=== PATIENT | male | born 1940 | race Caucasian/White ===

== ENCOUNTER 2018-02-02 05:55 | Outpatient (CLI) | payer MEDICARE ==
[~2018-02-02] VITALS: Ht 182.9 cm; Wt 122.5 kg
[~2018-02-02 05:55] MED LIST: ACHD5005 PO; AMLO10TA82 PO; AMOX500C2 PO; ANTIBIOTIC; ASP81CT; ASP81TEC PO; BENA20TA7 PO; BNZ10T; BNZ20T PO; CARB200T5 PO; CIPR-225 PO; CRB200T; CRB200T PO; CRESTOR; CYCL10TA45 PO; CYCL10TA9 PO; FELDENE; HYDR-1231 PO; HYDR1TAB8 PO; LEVO750T6 PO; MELO-195 PO; MELO15TA39 PO; MELO7.5T; METO100T12 PO; METO100T2 PO; MTP50T PO; MULT-608; MULT1TAB63; OMG1KC; OMG1KC PO; OXYC-12 PO; ROSU20TA PO; ROSU20TA14; ROSU20TA14 PO; SULF1TAB38; TADA2.5T PO; TAMS0.4C2 PO; TAMS0.4C98 PO; TEGRETOL; VITA1CAP59 PO; VITA400T7 PO
[2018-02-02] MEDS ORDERED: VITA1CAP PO (13:58)
[2018-02-02] MEDS ORDERED: OMEG1CAP58 PO (13:58)
[2018-02-02] MEDS ORDERED: VITA400C60 PO (13:58)
== END 2018-02-02 14:04 ==
LOC: PREOP 05:55
PROVIDERS: ATTEND Surgery
DX: Z01.818 Encounter for other preprocedural examination (principal); Z12.11 Encounter for screening for malignant neoplasm of colon; Z86.010 Personal history of colon polyps

== ENCOUNTER 2018-02-07 08:52 | Day surgery (SDC) | payer MEDICARE, OTHER ==
[~2018-02-07] VITALS: Ht 182.9 cm; Wt 122.5 kg
[~2018-02-07 08:52] MED LIST changes: +OMEG1CAP58 PO; +VITA1CAP PO; +VITA400C60 PO
[2018-02-07] MEDS ORDERED: LACTATED RINGERS 1,000 ML IV STA (09:30)
[2018-02-07] MEDS ORDERED: LACTATED RINGERS 1,000 ML IV ONE (09:39)
--- NOTE | 2018-02-07 09:43 | Progress Note-Pre Operative ---
Pre-Operative Progress Note H&P Reviewed The H&P was reviewed, patient examined and no changes noted. Date Seen by Provider: Feb 07, 2018 Time Seen by Provider: 09:42 Date H&P Reviewed: Feb 07, 2018 Time H&P Reviewed: 09:43 Pre-Operative Diagnosis: history polyps MORENITA PERALES DO Feb 07, 2018 09:43
[2018-02-07] MEDS ORDERED: ASPI-479 PO (10:23)
[2018-02-07 10:29] VITALS: BP 173/89
[2018-02-07] MEDS ORDERED: PROPOFOL INJECTION 50 ML IV ONE (11:12)
[2018-02-07] MEDS ORDERED: MIDAZOLAM 2 MG/2 ML (VERSED) VIAL ONE (11:12)
--- NOTE | 2018-02-07 11:38 | Progress Note-Post Operative ---
Post-Operative Progess Note Surgeon (s)/Document Control Clerk (s) Surgeon MORENITA PERALES DO Document Control Clerk: na Pre-Operative Diagnosis history polyps Post-Operative Diagnosis diverticulosis Procedure & Operative Findings Date of Procedure 02/07/18 Procedure Performed/Findings colonoscopy Anesthesia Type per rod greaser Estimated Blood Loss Estimated blood loss (mL): none Specimens/Packing Specimens Removed na MORENITA PERALES DO Feb 07, 2018 11:38
--- NOTE | 2018-02-07 11:39 | Discharge Inst-Simple/Standard ---
Discharge Inst-Standard Patient Instructions/Follow Up Plan of Care/Instructions/FU: Follow up on as needed basis. High fiber diet. Repeat colonoscopy 5 years or if issues before that be seen at that time. Activity as Tolerated: Yes Discharge Diet: Regular Diet (high fiber) MORENITA PERALES DO Feb 07, 2018 11:39
[2018-02-07 11:50] VITALS: BP 186/88
[2018-02-07 12:15] VITALS: BP 180/80
[2018-02-07 12:26] VITALS: BP 180/80
--- NOTE | 2018-02-07 13:17 | Anesthesia-General Post-Op ---
MAC Patient Condition Mental Status/LOC: Same as Preop Cardiovascular: Satisfactory Nausea/Vomiting: Absent Respiratory: Satisfactory Pain: Controlled Complications: Absent Post Op Complications Complications None Follow Up Care/Instructions Patient Instructions None needed. Anesthesiology Discharge Order Discharge Order Patient is doing well, no complaints, stable vital signs, no apparent adverse anesthesia problems. No complications reported per nursing. BERTRAM AGUILAR CRNA Feb 07, 2018 13:17
--- NOTE | 2018-02-07 16:56 | OPERATIVE REPORT ---
DATE OF SERVICE: 02/07/2018 PREOPERATIVE DIAGNOSIS: History of polyps. POSTOPERATIVE DIAGNOSIS: Diverticulosis. PROCEDURE: Colonoscopy. SURGEON: Morenita Hurd DO ANESTHESIA: Per PERMACULTURE DESIGNER. ESTIMATED BLOOD LOSS: None. COMPLICATIONS: None. INDICATIONS: The patient is a 77-year-old male with history of colon polyps. He understands risks and benefits of procedure and wished to proceed with procedure. Consent was signed on the chart. DESCRIPTION OF PROCEDURE: The patient was taken to the endoscopy suite, placed in left lateral recumbent position. Timeout was performed. Digital rectal exam was performed. There were no palpable polyps, masses or ulcerations. Scope was inserted in the rectum and advanced all the way to the cecum with minimal difficulty. Prep was adequate. Scope was then slowly retracted back. There were no polyps, mass or ulceration within the cecum, ascending, transverse, descending and sigmoid colon. There was a moderate amount of diverticulosis throughout the sigmoid colon. Scope was continued to be retracted back into the rectum where it was also retroflexed noting no other pathology. Scope was returned to its normal position, slowly withdrawn until completely removed. The patient tolerated procedure well without any complications, taken to recovery room in stable condition. RECOMMENDATIONS: The patient recommended repeat colonoscopy in 5 years. If the patient has any problems prior to that, he should be reevaluated at that time. Job ID: [id number] DocumentID: [id number] Dictated Date: 02/07/2018 11:36:49 Product Management Manager Date: 02/07/2018 16:55:13 Dictated By: MORENITA HURD DO
== END 2018-02-07 12:20 | disposition home or self-care (01) ==
LOC: ENDO 08:52
PROVIDERS: ATTEND Surgery
DX: Z12.11 Encounter for screening for malignant neoplasm of colon (principal); K57.30 Diverticulosis of large intestine without perforation or abscess without bleeding; Z86.010 Personal history of colon polyps; I25.10 Atherosclerotic heart disease of native coronary artery without angina pectoris; I10 Essential (primary) hypertension; G47.33 Obstructive sleep apnea (adult) (pediatric); Z79.82 Long term (current) use of aspirin; Z87.891 Personal history of nicotine dependence
CPT/HCPCS: G0105

== ENCOUNTER → 2018-05-03 | Outpatient (CLI) | payer MEDICARE, OTHER ==
[~2018-05-03] MED LIST changes: +ASPI-479 PO
--- NOTE | 2018-05-03 11:54 | Diagnostic Imaging Report ---
INDICATION: Injury with back pain. Exam is correlated with CT abdomen and pelvis April 2016 A stent graft device appeared unchanged. There is thoracolumbar spondylosis stable. The vertebral statures are unremarkable. There is slight rightward convexity scoliotic curvature stable. No acute appearing abnormality. IMPRESSION: Unchanged from previous CT. Dictated by: Dictated on workstation # [id number]
--- NOTE | 2018-05-03 13:16 | Diagnostic Imaging Report ---
INDICATION: Low and midback pain. Cleaned leaves out of a guttering two to three months ago with twisting injury. TECHNIQUE: AP, Lateral and Swimmers imaging of the thoracic spine CORRELATION STUDY: None. FINDINGS: Some straightening of the normal thoracic kyphosis. Alignment is otherwise anatomic. Thoracic vertebral body heights are well maintained. Mild diffuse disc space narrowing is noted. Mild endplate areas of lipping are present. There do appear to be degenerative changes about the visualized portions of the lower cervical spine. Coronary artery stents are superimposed over the left heart. Rhodes screw is however projecting over humeral head, likely owing to prior rotator cuff surgery. Partial visualization of proximal abdominal aortic stent graft. IMPRESSION: Mild generalized thoracic spondylosis is suggested. No suggestion for acute bony abnormality. Dictated by: Dictated on workstation # [id number]
== END ==
LOC: RAD 10:19
PROVIDERS: ATTEND Family Medicine
DX: S39.92XA Unspecified injury of lower back, initial encounter (principal); S29.9XXA Unspecified injury of thorax, initial encounter; X50.1XXA Overexertion from prolonged static or awkward postures, initial encounter; Z95.5 Presence of coronary angioplasty implant and graft
CPT/HCPCS: 72072; 72100

== ENCOUNTER 2018-10-17 06:21 | Outpatient (CLI) | payer MEDICARE, OTHER ==
[~2018-10-17] VITALS: Ht 182.9 cm; Wt 122.5 kg
[~2018-10-17 06:21] MED LIST changes: -ROSU20TA PO; +ROSU20TA2 PO
[2018-10-17] MEDS ORDERED: CYAN250010 PO (10:28)
[2018-10-17] MEDS ORDERED: CHOL500044 PO (10:28)
[2018-10-17] MEDS ORDERED: VITA200C5 PO (10:28)
== END 2018-10-17 10:37 | disposition home or self-care (01) ==
LOC: PREOP 06:21
PROVIDERS: ATTEND Specialist
DX: Z01.818 Encounter for other preprocedural examination (principal)

== ENCOUNTER 2018-10-18 08:03 | Day surgery (SDC) | payer MEDICARE, OTHER ==
[~2018-10-18] VITALS: Ht 182.9 cm; Wt 122.5 kg
[~2018-10-18 08:03] MED LIST changes: +CHOL500044 PO; +CYAN250010 PO; +VITA200C5 PO
[2018-10-18 08:38] VITALS: BP 169/90
[2018-10-18] MEDS: TETRACAINE 0.5% OPHTH SOLN 4 ML BTL (SINGLE DOSE ONLY) OU PRN ×3 (08:44→09:01)
[2018-10-18] MEDS: TROPICAMIDE 1% OPH SOLN (MYDRIACYL) 15 ML BTL OU PRN ×3 (08:47→09:02)
[2018-10-18] MEDS: PHENYLEPHRINE 10% OPHTH (NEO-SYN) 5 ML BTL OU PRN ×3 (08:48→09:02)
[2018-10-18 09:12] VITALS: BP 169/90
--- NOTE | 2018-10-18 09:19 | Ophthalmologist Pre-Op Note ---
Pre-Operative Progress Note H&P Reviewed The H&P was reviewed, patient examined and no changes noted. Date H&P Reviewed: Oct 18, 2018 Time H&P Reviewed: 09:00 Pre-Op Dx Secondary Cataract, Right Eye ERNESTINE ZARAGOZA MD Oct 18, 2018 09:19
--- NOTE | 2018-10-18 09:20 | Ophthalmology Operative Report ---
YAG Capsulotomy PREOPERATIVE DIAGNOSIS: Secondary Cataract Right Eye POSTOPERATIVE DIAGNOSIS: Secondary Cataract Right Eye PROCEDURE: YAG Capsulotomy, right eye SURGEON: Leif Zaragoza ANESTHESIA: Topical anesthesia COMPLICATIONS: None ESTIMATED BLOOD LOSS: Minimal DESCRIPTION OF PROCEDURE: After proper informed consent was obtained, the patient's, a 77 male, right eye received one drop of Tropicamide and one drop of Tetracaine. The patient was then placed at the YAG laser and using a power of [5.7 ] millijoules and [ 29] bursts were used to fashion a central capsulotomy. The patient tolerated the procedure well without complications and the patient's pressure was [18 ] shortly after the laser. LEIF ZARAGOZA MD Oct 18, 2018 09:20
--- OUTSIDE RECORDS SUMMARY | 2018-10-18 09:41 | XMS REPORT | CCD ---
Author Author Abril Barrett Organization Beatriz Pack MD, [facility] Address [address] [place] [address] Phone Care Team Providers [employer] Director Name Role Phone PP Unavailable CCM Unavailable Summary Purpose Interface Exchange Insurance Providers Payer name Policy type / Coverage type Covered alliance party ID Effective Begin Date Effective End Date WPS Medicare Part B Medicare Part B [id number] Unknown Unknown [facility] Medicare Part B [id number] Unknown Unknown Family history Father Diagnosis Age At Onset Stroke Unknown Mother Diagnosis Age At Onset Stroke Unknown Grandfather Diagnosis Age At Onset Diabetes mellitus Type 2 Unknown Social History Social History Element Codes Description Effective Dates Marital status Unknown Billie 11/04/2016 Number of children Unknown 2 Armand Abbott and Waleska Toney 11/04/[address]: [id number] Never smoker 11/04/2016 Alcohol history Unknown occasionally drinks alcohol 11/04/2016 Frequency of drinks SNOMED CT: 331917309 7 drinks per week 11/04/2016 Has the patient ever used illegal drugs? Unknown Has never used illegal drugs 11/04/2016 Allergies, Adverse Reactions, Alerts Substance Reaction Codes Entered Date Inactivated Date Status NO KNOWN DRUG ALLERGIES Unknown 11/04/2016 No Inactive Date Active Past Medical History Illness Codes Condition Status Onset Date Resolved Date Encounter for general adult medical examination with abnormal findings ICD-9: V70.0 ICD-10: Z00.01 Active 12/15/2016 Unknown Cough ICD-9: 786.2 ICD-10: R05 Active 11/22/2016 Unknown Gastro-esophageal reflux disease without esophagitis ICD-9: 530.81 ICD-10: K21.9 Active 11/22/2016 Unknown Other allergic rhinitis ICD-9: 477.8 ICD-10: J30.89 Active 11/04/2016 Unknown Acute laryngopharyngitis ICD-9: 465.0 ICD-10: J06.0 Active 11/04/2016 Unknown Problems Condition Codes Effective Dates Condition Status Encounter for general adult medical examination with abnormal findings ICD-9: V70.0 ICD-10: Z00.01 12/15/2016 Active Cough ICD-9: 786.2 ICD-10: R05 11/22/2016 Active Gastro-esophageal reflux disease without esophagitis ICD-9: 530.81 ICD-10: K21.9 11/22/2016 Active Other allergic rhinitis ICD-9: 477.8 ICD-10: J30.89 11/04/2016 Active Acute laryngopharyngitis ICD-9: 465.0 ICD-10: J06.0 11/04/2016 Active Medications Medication Codes Instructions Start Date Stop Date Status Fill Instructions pravastatin 80 mg tablet RxNorm: 316587 1 Tablet(s) PO daily 12/12/2018 Active pravastatin 80 mg tablet RxNorm: 674220 1 Tablet(s) PO daily 08/14/2018 Inactive Zyrtec 10 mg tablet RxNorm: 0219078 1 Tablet(s) PO daily 11/2212/21/2016 Inactive omeprazole 40 mg capsule,delayed release RxNorm: 063360 1 Capsule(s) PO daily 11/22/2016 12/21/2016 Inactive Keflex 500 mg capsule RxNorm: 768428 1 Capsule(s) PO TID 201611/22/2016 Inactive Keflex 500 mg capsule RxNorm: 373531 1 Capsule(s) PO TID 201611/13/2016 Inactive Fish Oil capsule RxNorm: 1 Capsule(s) PO daily No Start Date Active benazepril 20 mg tablet RxNorm: 150854 1 Tablet(s) PO daily No Start Date Active B Complex 1 oral RxNorm: 63121 oral No Start Date Active Crestor 20 mg tablet RxNorm: 447779 1 Tablet(s) PO daily No Start Date Active metoprolol tartrate 100 mg tablet RxNorm: 832094 1 Tablet(s) PO BID No Start Date Active meloxicam 15 mg tablet RxNorm: 703387 1 Tablet(s) PO daily No Start Date Active vitamin E (dl, acetate) 200 unit capsule RxNorm: 4960036 1 Capsule(s) PO daily No Start Date Active Epitol 200 mg tablet RxNorm: 782661 1 Tablet(s) PO BID No Start Date Active aspirin 81 mg capsule,delayed release RxNorm: 011240 1 Capsule(s) PO Tuesday- -Tuesday No Start Date Active Medication Administered No Medication Administered data Immunizations No Immunization data Assessments Condition Codes Effective Dates Encounter for general adult medical examination with abnormal findings ICD-10: Z00.01 ICD-9: V70.0 12/15/2016 Cough ICD-10: R05 ICD-9: 786.2 11/22/2016 Other allergic rhinitis ICD-10: J30.89 ICD-9: 477.8 11/22/2016 Gastro-esophageal reflux disease without esophagitis ICD-10 : K21.9 ICD-9: 530.81 11/22/2016 Acute laryngopharyngitis ICD-10: J06.0 ICD-9: 465.0 11/04/2016 Reason For Visit Reason For Visit Effective Dates Notes Annual Medicare Wellness Exam 12/15/2016 cough 11/22/2016 sore throat 11/04/2016 Results No Results data Review of Systems System Result Effective Dates Constitutional No chills 12/15/2016 Constitutional No diaphoresis 12/15/2016 Constitutional No fever 12/15/2016 Eyes No eye erythema 12/15/2016 Ears/Nose/Throat/Neck nasal allergies Cardiovascular No chest pain/pressure Cardiovascular No dyspnea 12/15/2016 Respiratory No cough 12/15/2016 Respiratory No dyspnea 12/15/2016 Gastrointestinal No abdominal pain 2016 Musculoskeletal No joint complaint 2016 Neurologic No alteration of consciousness 12/15/2016 Neurologic No mental status change 2016 Constitutional recent illness 11/22/2016 Constitutional No chills 11/22/2016 Constitutional No diaphoresis 11/22/2016 Constitutional No fever 11/22/2016 Eyes No eye erythema 11/22/2016 Ears/Nose/Throat/Neck nasal allergies 07/2016 Ears/Nose/Throat/Neck nasal discharge 07/2016 Ears/Nose/Throat/Neck No sinus congestion 11/22/2016 Ears/Nose/Throat/Neck postnasal drip 07/2016 Ears/Nose/Throat/Neck No sore throat 07/2016 Cardiovascular No chest pain/pressure 07/2016 Respiratory cough 11/22/2016 Respiratory No dyspnea 11/22/2016 Respiratory No productive sputum 2016 Neurologic No alteration of consciousness 11/22/2016 Neurologic No mental status change 2016 Constitutional recent illness 11/04/2016 Constitutional No chills 11/04/2016 Constitutional No diaphoresis 11/04/2016 Constitutional No fever 11/04/2016 Eyes No eye erythema 11/04/2016 Ears/Nose/Throat/Neck nasal allergies Ears/Nose/Throat/Neck nasal discharge Ears/Nose/Throat/Neck postnasal drip Ears/Nose/Throat/Neck sore throat 2016 Cardiovascular No chest pain/pressure Cardiovascular No dyspnea 11/04/2016 Respiratory cough 11/04/2016 Respiratory No dyspnea 11/04/2016 Respiratory No chest congestion 2016 Gastrointestinal No abdominal pain 2016 Gastrointestinal No constipation 2016 Gastrointestinal No diarrhea 11/04/2016 Gastrointestinal No gastroesophageal reflux 11/04/2016 Gastrointestinal No vomiting 11/04/2016 Gastrointestinal No nausea 11/04/2016 Musculoskeletal arthralgia(s) 11/04/2016 Neurologic No alteration of consciousness 11/04/2016 Neurologic No mental status change 2016 Physical Exam Exam Name System Name Item Name Status Result Effective Dates Notes Full Exam - General 1994 Constitutional general appearance Overall: well developed 12/15/2016 None Full Exam - General 1994 Constitutional general appearance Overall: in no acute distress 12/15/2016 None Full Exam - General 1994 Constitutional general appearance Overall: well nourished 12/15/2016 None Full Exam - General 1994 Eyes conjunctiva /eyelids Overall: conjunctiva clear 12/15/2016 None Full Exam - General 1994 Ears/Nose/Throat lips/teeth/gingiva Overall: benign lips 12/15/2016 None Full Exam - General 1994 Ears/Nose/Throat oral cavity/pharynx/larynx Overall: oral mucosa clear 12/15/2016 None Full Exam - General 1994 Respiratory respiratory effort/rhythm Overall: no retractions 12/15/2016 None Full Exam - General 1994 Respiratory respiratory effort/rhythm Overall: normal rate 12/15/2016 None Full Exam - General 1994 Cardiovascular extremities Overall: no clubbing 12/15/2016 None Full Exam - General 1994 Musculoskeletal head and neck Overall: head atraumatic 12/15/2016 None Full Exam - General 1994 Psychiatric orientation/consciousness Overall: oriented to person, place and time 12/15/2016 None Full Exam - General 1994 Psychiatric mood and affect Overall: normal mood and affect 12/15/2016 None Full Exam - General 1994 Psychiatric appearance Overall: well-groomed, good eye contact 12/15/2016 None Full Exam - ENT Constitutional general appearance Overall: well nourished 11/22/2016 None Full Exam - ENT Constitutional general appearance Overall: well developed 11/22/2016 None Full Exam - ENT Constitutional general appearance Overall: in no acute distress 11/22/2016 None Full Exam - ENT Ears/Nose/Throat otoscopic exam Overall: external auditory canals normal 11/22/2016 None Full Exam - ENT Ears/Nose/Throat otoscopic exam Overall: tympanic membranes normal 11/22/2016 None Full Exam - ENT Ears/Nose/Throat lips/ teeth/gingiva Overall: benign lips 11/22/2016 None Full Exam - ENT Ears/Nose/Throat oropharynx Overall: oral mucosa clear 11/22/2016 None Full Exam - ENT Ears/Nose/Throat oropharynx Posterior Pharynx: clear post nasal drainage 11/22/2016 None Full Exam - ENT Respiratory inspection Overall: no retractions 11/22/2016 None Full Exam - ENT Respiratory inspection Overall: normal rate 07/2016 None Full Exam - ENT Respiratory auscultation Overall: breath sounds clear bilaterally 11/22/2016 None Full Exam - ENT Cardiovascular auscultation of heart Overall: regular rate 11/22/2016 None Full Exam - ENT Cardiovascular auscultation of heart Overall: normal heart sounds 11/22/2016 None Full Exam - ENT Lymphatic palpation of lymph nodes Overall: anterior cervical chain benign 11/22/2016 None Full Exam - ENT Lymphatic palpation of lymph nodes Overall: posterior cervical chain benign 11/22/2016 None Full Exam - ENT Abdomen abdominal exam Overall: no tenderness 11/22/2016 None Full Exam - ENT Abdomen abdominal exam Overall: normal bowel sounds 11/22/2016 None Full Exam - ENT Neurologic mood and affect Overall: normal mood 11/22/2016 None Full Exam - ENT Neurologic mood and affect Overall: normal affect 11/22/2016 None Full Exam - ENT Neurologic orientation Overall: oriented to person, place and time 11/22/2016 None Full Exam - General 1994 Constitutional general appearance Overall: well developed 11/04/2016 None Full Exam - General 1994 Constitutional general appearance Overall: in no acute distress 11/04/2016 None Full Exam - General 1994 Constitutional general appearance Overall: well nourished 11/04/2016 None Full Exam - General 1994 Eyes conjunctiva /eyelids Overall: conjunctiva clear 11/04/2016 None Full Exam - General 1994 Eyes conjunctiva /eyelids Eyelid: lacrimal gland enlargement 11/04/2016 None Full Exam - General 1994 Eyes pupils and irises Overall: pupils equal, round, reactive to light and accomodation 11/04/2016 None Full Exam - General 1994 Ears/Nose/Throat otoscopic exam Overall: external auditory canals clear 11/04/2016 None Full Exam - General 1994 Ears/Nose/Throat otoscopic exam Tympanic membrane: air- fluid level 11/04/2016 None Full Exam - General 1994 Ears/Nose/Throat lips/teeth/gingiva Overall: benign lips 11/04/2016 None Full Exam - General 1994 Ears/Nose/Throat oral cavity/pharynx/larynx Overall: oral mucosa clear 11/04/2016 None Full Exam - General 1994 Ears/Nose/Throat oral cavity/pharynx/larynx Posterior Pharynx: clear post nasal drainage 11/04/2016 None Full Exam - General 1994 Ears/Nose/Throat oral cavity/pharynx/larynx Overall: oropharyngeal mucosa clear 11/04/2016 None Full Exam - General 1994 Respiratory auscultation Overall: breath sounds clear bilaterally 11/04/2016 None Full Exam - General 1994 Respiratory auscultation Diffuse: diminished 11/04/2016 None Full Exam - General 1994 Respiratory respiratory effort/rhythm Overall: no retractions 11/04/2016 None Full Exam - General 1994 Respiratory respiratory effort/rhythm Overall: normal rate 11/04/2016 None Full Exam - General 1994 Cardiovascular auscultation of heart Overall: regular rate 11/04/2016 None Full Exam - General 1994 Cardiovascular auscultation of heart Overall: normal heart sounds 11/04/2016 None Full Exam - General 1994 Cardiovascular extremities Overall: no clubbing 11/04/2016 None Full Exam - General 1994 Abdomen abdominal exam Overall: no tenderness 11/04/2016 None Full Exam - General 1994 Abdomen abdominal exam Overall: normal bowel sounds 11/04/2016 None Full Exam - General 1994 Abdomen abdominal exam Contour: protuberant 11/04/2016 None Full Exam - General 1994 Lymphatic neck nodes Overall: posterior cervical chain benign 11/04/2016 None Full Exam - General 1994 Lymphatic neck nodes Overall: anterior cervical chain benign 11/04/2016 None Full Exam - General 1994 Musculoskeletal head and neck Overall: head atraumatic 11/04/2016 None Full Exam - General 1994 Musculoskeletal head and neck Overall: cervical spine benign 11/04/2016 None Full Exam - General 1994 Neurologic cranial nerves Overall: crainial nerves 2 - 12 grossly intact 11/04/2016 None Full Exam - General 1994 Psychiatric orientation/consciousness Overall: oriented to person, place and time 11/04/2016 None Full Exam - General 1994 Psychiatric mood and affect Overall: normal mood and affect 11/04/2016 None Full Exam - General 1994 Psychiatric appearance Overall: well-groomed, good eye contact 11/04/2016 None Procedures Procedure Codes Date PPPS, SUBSEQ VISIT CPT -4: G0439 12/15/2016 Vital Signs Date Vital 12/15/2016 Blood Pressure 1: 162/84 Code : 8480-6 BMI: 37.6 Code : 38084-0 Heart Rate 1 : 73 bpm Height: 6' SpO2: 94% Weight: 277 lbs 11/22/2016 Blood Pressure 1: 162/84 Code : 8480-6 BMI: 37.6 Code : 40527-4 Heart Rate 1 : 61 bpm Height: 6' SpO2: 93% Weight: 277 lbs 11/04/2016 Blood Pressure 1: 152/78 Code : 8480-6 BMI: 37.4 Code : 82817-7 Heart Rate 1 : 61 bpm Height: 6' SpO2: 94% Weight: 276 lbs Functional Status No Functional Status data History of Present Illness Symptom Name Status Result Effective Date Notes Annual Medicare Wellness Exam Alcohol Use does not drink any alcohol 12/15/2016 None Annual Medicare Wellness Exam Aspirin Use yes 12/15/2016 None Annual Medicare Wellness Exam Blood Glucose (self reported) don't know 12/15/2016 None Annual Medicare Wellness Exam Blood Pressure (self reported ) diagnosed with hypertension 12/15/2016 None Annual Medicare Wellness Exam Cholesterol (self reported) desireable (below 200) 12/15/2016 None Annual Medicare Wellness Exam Depression (last 6 months) almost never 12/15/2016 None Annual Medicare Wellness Exam Depression or Hopelessness almost never 12/15/2016 None Annual Medicare Wellness Exam Describe Your Health excellent 12/15/2016 None Annual Medicare Wellness Exam Exercise Habits exercises 7 days per week 12/15/2016 None Annual Medicare Wellness Exam Exercise Habits exercises 30 minutes per day 12/15/2016 None Annual Medicare Wellness Exam Handling Stress usually kalyan effectively 12/15/2016 None Annual Medicare Wellness Exam Hemaglobin A-1C (self reported ) don't know 12/15/2016 None Annual Medicare Wellness Exam Hours of Sleep 7 12/15/2016 None Annual Medicare Wellness Exam Interaction with Friends yes 12/15/2016 None Annual Medicare Wellness Exam Interests & Pleasure some of the time 12/15/2016 None Annual Medicare Wellness Exam Life Satisfaction very satisfied 12/15/2016 None Annual Medicare Wellness Exam Motor Vehicle Safety always fastens seat belt: y 12/15/2016 None Annual Medicare Wellness Exam Motor Vehicle Safety drives after drinking: n 12/15/2016 None Annual Medicare Wellness Exam Motor Vehicle Safety rides with someone who has been drinking: n 2016 None Annual Medicare Wellness Exam Nutrition servings of fried food / high fat foods per day: 1 2016 None Annual Medicare Wellness Exam Nutrition servings of high fiber / whole grain per day: 1 12/15/2016 None Annual Medicare Wellness Exam Nutrition servings of vegetables / fruit per day: 1 12/15/2016 None Annual Medicare Wellness Exam Smoking and Tobacco Use non smoker 12/15/2016 None Annual Medicare Wellness Exam Social & Emotional Support always 12/15/2016 None Annual Medicare Wellness Exam Stress almost never 12/15/2016 None Annual Medicare Wellness Exam Sun Exposure protects skin when outdoors: n 12/15/2016 None cough Location in the throat 11/22/2016 None cough Quality constant 11/22/2016 None cough Onset and Resolution ongoing 11/22/2016 None cough Onset of Symptom 3 weeks ago 11/22/2016 None cough Frequency of Episodes daily 11/22/2016 None sinus congestion Location frontal sinuses 11/22/2016 None sinus congestion Quality fullness 11/22/2016 None sinus congestion Onset and Resolution sudden in onset 11/22/2016 None sinus congestion Onset of Symptom 2 weeks ago 11/22/2016 None sinus congestion Frequency of Episodes daily 11/22/2016 None sore throat Quality acute 11/04/2016 None sore throat Quality dull 11/04/2016 None sore throat Onset and Resolution ongoing 11/04/2016 None sore throat Onset of Symptom 3-4 days ago 11/04/2016 None sore throat Limitation on Activities does not limit oral intake 11/04/2016 None sore throat Pertinent Findings cough 11/04/2016 None sore throat Pertinent Findings Denies fever 11/04/2016 None postnasal drip Quality acute 11/04/2016 None postnasal drip Onset and Resolution gradual in onset 11/04/2016 None postnasal drip Pertinent Findings cough 11/04/2016 None postnasal drip Pertinent Findings Denies fever 11/04/2016 None nasal allergies Location in both nares 11/04/2016 None nasal allergies Onset and Resolution ongoing 11/04/2016 None nasal allergies Severity moderate 11/04/2016 None nasal allergies Pertinent Findings Denies fever 11/04/2016 None nasal allergies Pertinent Findings cough 11/04/2016 None Advance Directives No Advance Directive data Encounters Encounter Performer Location Codes Date [address] EST. PATIENT, LEVEL III Diagnosis: Cough[ICD10: R05] Diagnosis: Other allergic rhinitis[ICD10: J30.89] Diagnosis: Gastro-esophageal reflux disease without esophagitis[ICD10: K21.9] Abril Pack MD, [facility] CPT-4: 50687 11/22/2016 OFFICE VISIT, NEW - LEVEL 4 Diagnosis: Acute laryngopharyngitis[ICD10: J06.0] Diagnosis: Other allergic rhinitis[ICD10: J30.89] Abril Pack MD, [facility] CPT-4: 01481 11/04/2016 Plan of Care Planned Activity Notes Codes Status Date Visit Plan: Medicare Exam - today we discussed the patients past history, immunizations, preventative exams/evaluations - colonoscopy, fecal occult blood testing, routine labs for renal function, glucose, cholesterol, osteoporosis evaluations, cardiovascular testing and cancer screenings. We have also discussed mental health and the signs/symptoms of depression. The patient was advised of home safety evaluations and the need to make sure that as the aging process continues, we need to be aware of different ways to make the home a safer place to reside. The patient has also been counseled that exercise is necessary - and of utmost importance as we age to help decrease fall risk and to maintain independece in the home. Today we discussed the need for the patient to create paperwork for Advanced directives as well as for the patient to provide this office with a copy of her DOPA paperwork for health care surrogate. 12/15/2016 Appointment: Abril Barrett WPtel: [address] [place], [place] [id number] [facility] - Annual Wellness Visit 12/15/2016 Patient Education: Patient Medication Summary Completed 12/15/2016 Appointment: Beatriz Pack WPtel: [facility] New Patient 12/07/2016 Visit Plan: Allergies - chronic - recommended pt to use allergy medication as prescribed. Pt has been counseled as to the appropriate use of the medication. Pt to call if allergy symptoms are not controlled with the medication. If using nasal spray, instructions as follows: Nasal spray- use twice daily, one spray per nostril twice daily, after 30 minutes, rinse out nose with saline spray.. Use opposite hand per nostril to spray in the nasal steroid allergy spray. Esophageal Reflux - the patient has been counseled against excessive intake of caffeine, spicy foods, peppermint, and cinnamon - all of which can exacerbate esophageal reflux. The patient is to take medications as prescribed and call the office if the symptoms are not improving. 11/22/2016 Appointment: Abril Barrett WPtel: [facility] (15 min) Moderate 11/22/2016 Patient Education: Patient Medication Summary Completed 11/22/2016 Patient Education: Obesity Completed 11/22/2016 Visit Plan: URI - Pt advised to increase fluids, vitamin C. Discussed natural and expected course of this diagnosis and need to alert me if symptoms do not follow expected course, or if any worse. RX sent to patient' s pharmacy. Allergies - chronic - recommended pt to use allergy medication as prescribed. Pt has been counseled as to the appropriate use of the medication. Pt to call if allergy symptoms are not controlled with the medication. Will call for latest labs/consultation reports from [employer]. 11/04/2016 Appointment: Abril Barrett WPtel: [facility] New Patient 11/04/2016 Patient Education: Patient Medication Summary Completed 11/04/2016 Patient Education: Obesity Completed 11/04/2016 Instructions Comment will treat for 2 different things that could be causing your throat clearing: Allergies and Reflux I want you to take both zyrtec and omeprazole daily for 1 week, if your symptoms have not improved let me know. If your symptoms have improved after 1 week, then stop the zyrtec and continue the omeprazole for a few days. If your symptoms stay gone then you can stop the omeprazole and see if your symptoms stay gone - if they return let me know. . Allergies - chronic - recommended pt to use allergy medication as prescribed. Pt has been counseled as to the appropriate use of the medication. Pt to call if allergy symptoms are not controlled with the medication. If using nasal spray, instructions as follows: Nasal spray- use twice daily, one spray per nostril twice daily, after 30 minutes, rinse out nose with saline spray.. Use opposite hand per nostril to spray in the nasal steroid allergy spray. Esophageal Reflux - the patient has been counseled against excessive intake of caffeine, spicy foods, peppermint, and cinnamon - all of which can exacerbate esophageal reflux. The patient is to take medications as prescribed and call the office if the symptoms are not improving. . URI - Pt advised to increase fluids, vitamin C. Discussed natural and expected course of this diagnosis and need to alert me if symptoms do not follow expected course, or if any worse. RX sent to patient's pharmacy. Allergies - chronic - recommended pt to use allergy medication as prescribed. Pt has been counseled as to the appropriate use of the medication. Pt to call if allergy symptoms are not controlled with the medication. Will call for latest labs/consultation reports from [employer]. . Medicare Exam - today we discussed the patients past history, immunizations, preventative exams/evaluations - colonoscopy, fecal occult blood testing, routine labs for renal function, glucose, cholesterol, osteoporosis evaluations, cardiovascular testing and cancer screenings. We have also discussed mental health and the signs/symptoms of depression. The patient was advised of home safety evaluations and the need to make sure that as the aging process continues, we need to be aware of different ways to make the home a safer place to reside. The patient has also been counseled that exercise is necessary - and of utmost importance as we age to help decrease fall risk and to maintain independece in the home. Today we discussed the need for the patient to create paperwork for Advanced directives as well as for the patient to provide this office with a copy of her DOPA paperwork for health care surrogate.
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
== END 2018-10-18 09:12 | disposition home or self-care (01) ==
LOC: SDC 08:03
PROVIDERS: ATTEND Specialist
DX: H26.40 Unspecified secondary cataract (principal); I25.2 Old myocardial infarction; I10 Essential (primary) hypertension; M19.91 Primary osteoarthritis, unspecified site; E78.00 Pure hypercholesterolemia, unspecified; Z85.46 Personal history of malignant neoplasm of prostate

== ENCOUNTER 2019-05-14 09:25 | Outpatient (RCR) | payer MEDICARE, OTHER ==
[2019-05-14] MEDS ORDERED: ACHD5005 PO (18:00)
== END 2019-05-28 09:50 | disposition home or self-care (01) ==
PROVIDERS: ATTEND Physical Medicine & Rehabilitation
DX: I73.9 Peripheral vascular disease, unspecified (principal)

== ENCOUNTER 2019-05-14 14:21 | Emergency (ER) | payer MEDICARE, OTHER ==
[~2019-05-14] VITALS: Ht 182 cm; Wt 123.0 kg
--- NOTE | 2019-05-14 14:51 | ED Trauma-Multisystem ---
General Chief Complaint: Trauma-Non Activation Stated Complaint: FALL Nursing Triage Note: Pt to triage with C/O left rib pain after falling down a few cement steps. Pt states he fell on his left side and elbow went into his ribs. When he got up from fall, states he fells again and his the right side of his face. Pt rates pain 5/10 at this time. Pt has abrasions present on bilat knees and arms, as well as right eyebrow. Pt denies LOC and states he is takes 81mg ASA 3x/wk. History of Present Illness Date Seen by Provider: May 14, 2019 Time Seen by Provider: 14:20 Initial Comments Patient is an 78-year-old male. Report was walking down some steps taking out some trash reports his right knee gave out on and he fell hitting his right side of his head as well as his left elbow which pushed into his left rib's. Patient states he immediately got back up, didn't have his balance and fell again, requiring assistance to get up. Patient denies hitting his head or new injuries the second time or loss of consciousness during either fall. Abrasions noted to left forearm, bilateral hands and bilateral knees. Patient denies medication for pain at this time denies headache visual changes nausea or vomiting. Patient was able to ambulate into the exam room without assistance. Patient is in physical therapy for chronic back pain, he takes Flexeril rarely and meloxicam for this. Location Injury Occurred: home Occurred: Just Prior to Arrival Severity: Mild Pain/Injury Location: Head, Lower Extremity, Upper Extremity Method of Injury: Fall Loss of Consciousness: No Loss of Consciousness Associated Symptoms (Fall): Denies Symptoms Allergies and Home Medications Allergies Coded Allergies: morphine (Verified Adverse Reaction, Mild, CONFUSION, CAN TAKE PERCOCET, 05/14/19) Home Medications Aspirin 81 Mg Tablet.dr, 81 MG PO TuThSa, (Reported) Benazepril HCl 20 Mg Tablet, 20 MG PO DAILY, (Reported) Carbamazepine 200 Mg Tablet, 200 MG PO BID, (Reported) TAKES FOR LEG CRAMPS / NOT SEIZURES Cholecalciferol (Vitamin D3) 5,000 Unit Tablet, 5,000 UNIT PO DAILY, (Reported) Cyanocobalamin (Vitamin B-12) 2,500 Mcg Tablet, 2,500 MCG PO DAILY, (Reported) Hydrocodone Bit/Acetaminophen 1 Tab Tab, 1-2 EACH PO Q6H PRN for PAIN-MODERATE Prescribed by: TALITA DAILEY on 05/14/19 1800 Meloxicam 15 Mg Tablet, 15 MG PO DAILY, (Reported) Rosuvastatin Calcium 20 Mg Tablet, 20 MG PO DAILY, (Reported) Vitamin E 200 Unit Capsule, 200 UNIT PO DAILY, (Reported) Patient Home Medication List Home Medication List Reviewed: Yes Review of Systems Review of Systems Constitutional: no symptoms reported Eyes: No Symptoms Reported Ears: No Symptoms Reported Nose: No Symptoms Reported Mouth: No Symptoms Reported Throat: No Symptoms to Report Respiratory: no symptoms reported Cardiovascular: No Symptoms Reported Gastrointestinal: no symptoms reported Genitourinary: no symptoms reported Musculoskeletal: no symptoms reported Skin: see HPI Psychiatric/Neurological: No Symptoms Reported All Other Systems Reviewed Negative Unless Noted: Yes Past Qatjnlf-Nzpnsk-Emafni Hx Past Med/Social Hx: Reviewed Nursing Past Med/Soc Hx Patient Social History Alcohol Use: Denies Use Recreational Drug Use: No Smoking Status: Former Smoker Former Smoker, Quit: Nov 21, 2014 2nd Hand Smoke Exposure: No Recent Foreign Travel: No Contact w/Someone Who Travel: No Recent Infectious Disease Expo: No Recent Hopitalizations: No Physical Abuse: No Sexual Abuse: No Mistreated: No Fear: No Immunizations Up To Date Tetanus Booster (TDap): Unknown PED Vaccines UTD: Yes Date of Pneumonia Vaccine: May 10, 2016 Date of Influenza Vaccine: May 09, 2017 Seasonal Allergies Seasonal Allergies: No Past Medical History Surgeries: Yes (FX RIB, KIDNEY STONES) Abdominal, Cardiac, Orthopedic, Prostatectomy Respiratory: No Sleep Apnea Currently Using CPAP: Yes Cardiac: Yes (AAA REPAIR WITH STENTS; CARDIAC CATH WIHT ANGIOPLASTY) Aneurysm, Chronic Edema/Swelling, Heart Attack, High Cholesterol, Hypertension Neurological: No Reproductive Disorders: No Sexually Transmitted Disease: No HIV/AIDS: No Kidney Stones Gastrointestinal: Yes Diverticulosis Musculoskeletal: Yes Chronic Back Pain Endocrine: No Loss of Vision: Denies Hearing Impairment: Denies Cancer: Yes (PROSTATECTOMY 1996-NO CHEMO OR RADIATION) Prostate, Melanoma Psychosocial: No Integumentary: No Blood Disorders: No Adverse Reaction/Blood Tranf: No Family Medical History Heart Disease, Hypertension Physical Exam Vital Signs Vital Signs - First Documented 05/14/19 14:24 Temp 36.6 Pulse 75 Resp 18 B/P (MAP) 195/103 (133) Pulse Ox 99 O2 Delivery Room Air Height, Weight, BMI Height: 6'0.00" Weight: 270lbs. 0.0oz. 122.138307ge; 37.00 BMI Method:Stated General Appearance: No Apparent Distress, WD/WN Head: Tenderness, Other (abrasion noted over right eye); No Active Bleeding, No Galarza's Sign, No Raccoon Eyes Eyes: Bilateral Eye Normal Inspection, Bilateral Eye PERRL, Bilateral Eye EOMI Ears, Nose, Throat: Hearing Grossly Normal, No Evidence of ENT Injury, No Dental Injury Neck: Full Range of Motion, Normal Inspection Cardiovascular: Regular Rate, Rhythm, No Edema, Normal Peripheral Pulses Respiratory: Lungs Clear, Normal Breath Sounds, No Accessory Muscle Use, Other (Left ribs tender) Gastrointestinal: Normal Bowel Sounds, Non Tender, Soft Back: Normal Inspection, No Vertebral Tenderness Extremity: Normal Capillary Refill, Other (multiple abrasions noted to left forearm, abrasion noted to left hand, abrasions noted to bilateral knees) Neurologic/Psychiatric: Alert, Oriented x3, No Motor/Sensory Deficits, Normal Mood/Affect Skin: Normal Color, Warm/Dry, Other (multiple abrasions to bilateral knees, bilateral hands and left forearm. No active bleeding.) Douglas Coma Score Best Eye Response ([place]): (4) Open Spontaneously Best Verbal Response (Douglas): (5) Oriented Best Motor Response ([place]): (6) Obeys Commands Douglas Total: 15 Progress/Results/Core Measures Results/Orders My Orders Orders - TALITA DAILEY Ct Head Wo (05/14/19 14:37) Ribs, Left 2-3 Views (05/14/19 14:45) Dipht,Pertuss(Acell),Tet Adult (Boostrix (05/14/19 15:45) Hydrocodone/Apap 7.5/325 Tab (Lortab 7. (05/14/19 16:45) Cyclobenzaprine Tablet (Flexeril Tablet) (05/14/19 17:16) Metoprolol Succinate (Xl) Tab (Toprol Xl (05/15/19 09:00) Metoprolol Succinate (Xl) Tab (Toprol Xl (05/14/19 17:33) Medications Given in ED Current Medications Medications Dose Ordered Sig/Mirella Route Start Time Stop Time Status Last Admin Dose Admin Acetaminophen/ Hydrocodone Bitart 1 ea ONCE ONCE PO 05/14/19 16:45 05/14/19 16:46 DC 05/14/19 16:45 1 EA Diphtheria/ Tetanus/Acell Pertussis 0.5 ml ONCE ONCE IM 05/14/19 15:45 05/14/19 15:46 DC 05/14/19 15:49 0.5 ML Vital Signs/I&O 05/14/19 05/14/19 05/14/19 05/14/19 14:24 16:05 16:30 18:08 Temp 36.6 36.6 36.6 Pulse 75 75 76 Resp 18 18 18 B/P (MAP) 195/103 (133) 195/103 (133) 201/103 (133) Pulse Ox 99 99 99 O2 Delivery Room Air Room Air Room Air Room Air Blood Pressure Mean: 133 Progress Progress Note : Time: 14:20 Progress Note Patient seen and evaluated, will obtain CT of the head, rib x-rays. Patient declines need for pain medication at this time. 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 1635 Patient's abrasions cleansed with normal saline and Hibiclens. Triple antibiotic ointments was applied to the abrasions on the left forearm and left hands which was subsequently covered nonadherent gauze pad and wrapped with rolled gauze. Patient's blood pressure has remained elevated patient continues to be in pain but is agreeable to take something for the pain. We will order hydrocodone 7.5/325mg. 1715 blood pressure is continued to be labile, verified his blood pressures assure medicine with pharmacy, he takes Benazepril 20 mg once daily and Metoprolol 100 mg twice a day. His verifies that he takes them, as prescribed. Will give metoprolol 100 mg by mouth now and Flexeril 10 mg by mouth now. 1800 blood pressure has improved to baseline for the patient. Patient reports his pain is better controlled. Discharge instructions and return precautions discussed with the patient, his and daughter. Initial ECG Impression Date: May 14, 2019 Diagnostic Imaging Diagonstic Imaging: CT Comments NAME: MARIE RICO [facility] REC#: [id number] PT STATUS: REG ER : 1940 PHYSICIAN: TALITA DAILEY ADMIT DATE: 05/14/19/ER Draft Date of Exam:05/14/19 CT HEAD WO PROCEDURE: CT head without contrast. TECHNIQUE: Multiple contiguous axial images were obtained through the brain without the use of intravenous contrast. Auto Exposure Controls were utilized during the CT exam to meet ALARA standards for radiation dose reduction. INDICATION: Head injury with abrasion and laceration. FINDINGS: Ventricles and sulci are diffusely prominent. There is mild low density throughout the deep white matter of both cerebral hemispheres. Focal lucency is seen within the right basal ganglia and may represent nonacute lacunar infarct. No territorial infarct is identified. There is no evidence of acute hemorrhage. Calvarium is intact. There are mucus retention cysts or polyps present within the left maxillary sinus without evidence of paranasal sinus air-fluid level. Globes are intact, bilaterally. IMPRESSION: Senescent findings in the brain without CT evidence of acute intracranial abnormality. Dictated on workstation # [id number] Dict: 05/14/19 1505 Trans: 05/14/19 1508 [id number] Interpreted by: DARWIN ROCA MD Electronically signed by: Reviewed: Reviewed by Tn Diagonstic Imaging: Xray Plain Films/CT/US/NM/MRI: other (left ribs) Comments NAME: MARIE RICO [facility] REC#: [id number] PHYSICIAN: TALITA DAILEY CC: MARIE DUONG MD; TALITA DAILEY Page 1 of 1 RADIOLOGY REPORT [facility] [place] CC: MARIE DUONG MD; TALITA DAILEY Page 1 of 1 RADIOLOGY REPORT NAME: MARIE RICO [facility] REC#: [id number] PT STATUS: REG ER : 1940 PHYSICIAN: TALITA DAILEY ADMIT DATE: 05/14/19/ER Signed Date of Exam: 05/14/19 RIBS, LEFT 2-3 VIEWS Indication: Left axillary pain after a fall 3 views of the left ribs show fractures of the left 5th, 6th and 7th ribs. There is also an old healed fracture of the left 4th rib. IMPRESSION: There appear to be nondisplaced fractures of the left 5th, 6th and 7th ribs. There is no effusion or pneumothorax. Dictated by: Dictated on workstation # [id number] Dict: 05/14/19 1511 Trans: 05/14/19 5318 Interpreted by: MARIE DUONG MD Electronically signed by: MARIE DUONG MD 05/14/19 3917 Departure Impression Primary Impression: Fall Qualified Codes: W19.XXXA - Unspecified fall, initial encounter Additional Impressions: Multiple fractures of ribs of left side Qualified Codes: S22.42XA - Multiple fractures of ribs, left side, initial encounter for closed fracture Uncontrolled hypertension Essential hypertension Disposition: HOME, SELF-CARE Condition: Improved Departure-Patient Inst. Decision time for Depature: 17:50 Referrals: JERRELL DAVID MD (PCP) Primary Care Physician Patient Instructions: Rib Fracture (DC) Add. Discharge Instructions: Use your incentive spirometer 3-5 times hourly while awake. Take your blood pressure medicine as prescribed, change positions slowly. Gentle range of motion to left arm. Warm moist compresses to left ribs. Turned, cough, and deep breathe 3-5 times each hour, while awake Take pain medication as prescribed. Use Over the Counter stool softener, 1 tablet twice daily while taking pain medication. Follow up with Dr. Herrera in 2-3 days for rib fractures and blood pressure. Return to emergency department for new, urgent health care problems. All discharge instructions reviewed with patient and/or family. Voiced understanding. Scripts Hydrocodone Bit/Acetaminophen (Hydrocodone/Acetaminophen 5/325mg Tablet) 1 Tab Tab 1-2 EACH PO Q6H PRN for PAIN-MODERATE MDD 10, #20 TAB 0 Refills Prov: TALITA DAILEY 05/14/19 Copy Copies To 1: NERISSA HERRERA MD, AMY ARNP May 14, 2019 14:51
--- NOTE | 2019-05-14 15:09 | Diagnostic Imaging Report ---
PROCEDURE: CT head without contrast. TECHNIQUE: Multiple contiguous axial images were obtained through the brain without the use of intravenous contrast. Auto Exposure Controls were utilized during the CT exam to meet ALARA standards for radiation dose reduction. INDICATION: Head injury with abrasion and laceration. FINDINGS: Ventricles and sulci are diffusely prominent. There is mild low density throughout the deep white matter of both cerebral hemispheres. Focal lucency is seen within the right basal ganglia and may represent nonacute lacunar infarct. No territorial infarct is identified. There is no evidence of acute hemorrhage. Calvarium is intact. There are mucus retention cysts or polyps present within the left maxillary sinus without evidence of paranasal sinus air-fluid level. Globes are intact, bilaterally. IMPRESSION: Senescent findings in the brain without CT evidence of acute intracranial abnormality. Dictated by: Dictated on workstation # [id number]
[2019-05-14] MEDS ORDERED: TETANUS,DIPTH,PERTUSS P/F (BOOSTRIX) 0.5 ML VIAL IM ONE (15:45)
--- NOTE | 2019-05-14 15:54 | Diagnostic Imaging Report ---
Indication: Left axillary pain after a fall 3 views of the left ribs show fractures of the left 5th, 6th and 7th ribs. There is also an old healed fracture of the left 4th rib. IMPRESSION: There appear to be nondisplaced fractures of the left 5th, 6th and 7th ribs. There is no effusion or pneumothorax. Dictated by: Dictated on workstation # [id number]
[2019-05-14] MEDS ORDERED: HYDROcodone/APAP 7.5 MG/325 MG (LORTAB, LORCET PLUS) TABLET PO ONE (16:45)
[2019-05-14] MEDS ORDERED: CYCLOBENZAPRINE 10 MG (FLEXERIL) TAB PO STA (17:16)
[2019-05-14] MEDS ORDERED: meTOproloL SUCCINATE 50 MG (TOPROL XL) TAB PO ONE (17:33)
[2019-05-14] MEDS ORDERED: ACHD5005 PO (18:00)
[2019-05-14 18:08] VITALS: BP 201/103
[2019-05-15] MEDS ORDERED: meTOproloL SUCCINATE 50 MG (TOPROL XL) TAB PO SCH (09:00)
== END 2019-05-14 18:08 | disposition home or self-care (01) ==
LOC: EDUNIT# 14:21 → ER 14:22
DX: S22.42XA Multiple fractures of ribs, left side, initial encounter for closed fracture (principal); I10 Essential (primary) hypertension; I25.2 Old myocardial infarction; E78.00 Pure hypercholesterolemia, unspecified; G47.30 Sleep apnea, unspecified; R40.2142 Coma scale, eyes open, spontaneous, at arrival to emergency department; R40.2252 Coma scale, best verbal response, oriented, at arrival to emergency department; R40.2362 Coma scale, best motor response, obeys commands, at arrival to emergency department; Z88.5 Allergy status to narcotic agent; Z99.89 Dependence on other enabling machines and devices; Z79.82 Long term (current) use of aspirin; Z87.891 Personal history of nicotine dependence; Z87.442 Personal history of urinary calculi; Z95.5 Presence of coronary angioplasty implant and graft; Z85.820 Personal history of malignant melanoma of skin; Z95.9 Presence of cardiac and vascular implant and graft, unspecified; Z85.46 Personal history of malignant neoplasm of prostate; Z82.49 Family history of ischemic heart disease and other diseases of the circulatory system; W10.9XXA Fall (on) (from) unspecified stairs and steps, initial encounter
CPT/HCPCS: 70450; 71100; 90715; 94664

== ENCOUNTER → 2019-09-05 | Outpatient (CLI) | payer MEDICARE, OTHER ==
[~2019-09-05] MED LIST changes: -TAMS0.4C98 PO; +TMSL.4C PO
== END ==
LOC: CARD 08:55
PROVIDERS: ATTEND Internal Medicine Interventional Cardiology
DX: I25.10 Atherosclerotic heart disease of native coronary artery without angina pectoris (principal); E78.5 Hyperlipidemia, unspecified; I11.9 Hypertensive heart disease without heart failure; I34.0 Nonrheumatic mitral (valve) insufficiency
CPT/HCPCS: 93306

== ENCOUNTER → 2019-09-13 | Outpatient (CLI) | payer MEDICARE, OTHER ==
[~2019-09-13] VITALS: Ht 185 cm; Wt 127.0 kg
[~2019-09-13] MED LIST changes: +CATHETER FLUSH 10 ML SYR IV PRN; +REGADENOSON 0.4 MG/5 ML SYR (LEXISCAN) IV ONE
[2019-09-14 12:33] VITALS: BP 199/104
--- NOTE | 2019-09-14 12:33 | Cardiology Stress Test Report ---
Stress Test Report Type of NM Stress Test: Test Type: LEXISCAN 0.4MG/5ML Date of Procedure/Referring: Date of Procedure: Sep 13, 2019 PCP Reed Ozuna MD Admitting Physician Beatriz Pack MD Indications: CAD Baseline Heart Rate: 67 Baseline Blood Pressure: Blood Pressure Systolic: 199 Blood Pressure Diastolic: 104 Baseline EKG: Baseline EKG: sinus rhythm Summary & Conclusion: Summary: The patient was brought to the stress lab after informed consent was taken. Stress test was performed according to the Lexiscan protocol. 0.4 mg of IV Lexiscan was given. Low-grade exercise was performed. Baseline EKG showed sinus rhythm at 67 BPM. Blood pressure 199/104. Maximum heart rate 81 bpm and blood pressure 216/107. Patient did not have any chest pain, arrhythmias or ST segment changes during the stress test. 10.98 mCi of Myoview were given for rest imaging and 29.5 mCi of Myoview given for stress imaging. Transient ischemic dilatation score 1.08, EF 71 percent. Normal wall motion. Normal myocardial perfusion imaging during rest and stress. Conclusion: Pharmacological stress test was negative for ischemia. Normal LV function with no wall motion abnormalities. Normal myocardial perfusion imaging during rest and stress. Reed OZUNA MD Sep 14, 2019 12:33
== END ==
LOC: CARD 07:23
PROVIDERS: ATTEND Internal Medicine Interventional Cardiology
DX: I25.10 Atherosclerotic heart disease of native coronary artery without angina pectoris (principal); E78.5 Hyperlipidemia, unspecified; I10 Essential (primary) hypertension
CPT/HCPCS: 78452; 93017

== ENCOUNTER 2019-09-14 08:25 | Outpatient (RCR) | payer MEDICARE, OTHER ==
[~2019-09-14 08:25] MED LIST changes: -CATHETER FLUSH 10 ML SYR IV PRN; -REGADENOSON 0.4 MG/5 ML SYR (LEXISCAN) IV ONE
== END 2019-09-17 | disposition home or self-care (01) ==
PROVIDERS: ATTEND Family Medicine
DX: S22.42XA Multiple fractures of ribs, left side, initial encounter for closed fracture (principal); W10.9XXA Fall (on) (from) unspecified stairs and steps, initial encounter

== ENCOUNTER 2019-09-27 09:07 | Outpatient (RCR) | payer MEDICARE, OTHER | END 2019-09-27 12:18 | disposition home or self-care (01) | PROVIDERS: ATTEND Family Medicine | DX: S22.42XA Multiple fractures of ribs, left side, initial encounter for closed fracture (principal); W10.9XXA Fall (on) (from) unspecified stairs and steps, initial encounter ==

== ENCOUNTER 2020-05-19 08:00 | Outpatient (RCR) | payer MEDICARE, OTHER | END 2020-06-05 15:01 | disposition home or self-care (01) | PROVIDERS: ATTEND Nurse Practitioner Family | DX: M54.5 Low back pain (principal) ==

== ENCOUNTER 2020-09-30 18:20 | Emergency (ER) | payer MEDICARE, OTHER ==
[~2020-09-30] VITALS: Ht 182 cm; Wt 100.0 kg
[2020-09-30 19:07] LABS: BASOPHILS # (AUTO) 0.1 10^3/uL (0.0-0.1); BASOPHILS % (AUTO) 1 % (0-10); EOSINOPHILS # (AUTO) 0.2 10^3/uL (0.0-0.3); EOSINOPHILS % (AUTO) 1 % (0-10); HEMATOCRIT 50 % (40-54); HEMOGLOBIN 17.1 g/dL (13.3-17.7); LYMPHOCYTES # (AUTO) 1.4 10^3/uL (1.0-4.0); LYMPHOCYTES % (AUTO) 13 % (12-44); MEAN CORPUSCULAR HEMOGLOBIN 33 pg (25-34); MEAN CORPUSCULAR HGB CONC 34 g/dL (32-36); MEAN CORPUSCULAR VOLUME 97 fL (80-99); MEAN PLATELET VOLUME 9.5 fL (9.0-12.2); MONOCYTES # (AUTO) 0.8 10^3/uL (0.0-1.0); MONOCYTES % (AUTO) 8 % (0-12); NEUTROPHILS # (AUTO) 8.4 10^3/uL (1.8-7.8); NEUTROPHILS % (AUTO) 77 % (42-75); PLATELET COUNT 275 10^3/uL (130-400); WHITE BLOOD COUNT 10.9 10^3/uL (4.3-11.0)
--- NOTE | 2020-09-30 19:10 | Diagnostic Imaging Report ---
INDICATION: Abdominal pain KUB at 7:06 PM FINDINGS: The heart size and pulmonary vascularity are normal. The lungs are clear. There are no effusions or pneumothoraces. IMPRESSION: No acute abnormalities in the chest. Dictated by: Dictated on workstation # [id number]
--- NOTE | 2020-09-30 19:13 | ED General ---
General Chief Complaint: Chest Pain Stated Complaint: STOMACH PAIN/LOWER BACK PAIN/O2 AT 89 Nursing Triage Note: pt presents to ED with c/o chest and abdominal pain that radiates to mid-low back that began suddenly and instensely while driving in the car. pt is under a lot of stress d/t dying unexpectedly 2 days ago. pt reports diaphoresis when sx began and has abnormally high BP. Nursing Sepsis Screen: No Definite Risk History of Present Illness Date Seen by Provider: Sep 30, 2020 Time Seen by Provider: 18:50 Initial Comments Patient is an 79-year-old male who presents to the emergency department today with a chief complaint of abdominal pain radiating into his low back more on the left side. Patient states he had onset of pain at around 3:00 this evening. Patient has had a stressful week and that his a couple of days ago. He states that he was very sweaty at the onset of pain. His blood pressure is notably very high with a systolic greater than 200 and a diastolic greater than 100. There is some question as to whether or not he has skipped a blood pressure pill in recent days. He denies any nausea, chest pain, vomiting, urinary complaints. Has not been ill. Got his second Covid vaccine last week. Patient tells me that he has a history of an abdominal aortic aneurysm and there is a question as to whether or not this is been stented in the past. Patient states that he has it monitored every 6 months or so by a nutrition educator at [facility] in [place]. Nothing makes the pain any better or any worse. Patient states that he became concerned when he tried to lay down and take a nap and he could not get into a comfortable position. All other review of systems reviewed and negative except as stated. Timing/Duration: 4-6 Hours Severity: Moderate Modifying Factors: worse with Movement Associated Systoms: Denies Symptoms Allergies and Home Medications Allergies Coded Allergies: morphine (Verified Adverse Reaction, Mild, CONFUSION, CAN TAKE PERCOCET, 05/14/19) Home Medications Aspirin 81 Mg Tablet., 81 MG PO TuThSa, (Reported) Benazepril HCl 20 Mg Tablet, 20 MG PO DAILY, (Reported) Carbamazepine 200 Mg Tablet, 200 MG PO BID, (Reported) TAKES FOR LEG CRAMPS / NOT SEIZURES Cholecalciferol (Vitamin D3) 5,000 Unit Tablet, 5,000 UNIT PO DAILY, (Reported) Cyanocobalamin (Vitamin B-12) 2,500 Mcg Tablet, 2,500 MCG PO DAILY, (Reported) Hydrocodone Bit/Acetaminophen 1 Tab Tab, 1-2 EACH PO Q6H PRN for PAIN-MODERATE Prescribed by: TALITA DAILEY on 05/14/19 1800 Meloxicam 15 Mg Tablet, 15 MG PO DAILY, (Reported) Rosuvastatin Calcium 20 Mg Tablet, 20 MG PO DAILY, (Reported) Vitamin E 200 Unit Capsule, 200 UNIT PO DAILY, (Reported) Patient Home Medication List Home Medication List Reviewed: Yes Review of Systems Review of Systems Constitutional: see HPI EENTM: no symptoms reported Respiratory: no symptoms reported Cardiovascular: no symptoms reported Gastrointestinal: abdominal pain Genitourinary: no symptoms reported Musculoskeletal: no symptoms reported Skin: no symptoms reported All Other Systems Reviewed Negative Unless Noted: Yes Past Ckkegza-Uquwnf-Jkbkxr Hx Patient Social History Alcohol Use: Denies Use Former Smoker, Quit: Nov 21, 2014 2nd Hand Smoke Exposure: No Recent Infectious Disease Expo: No Recent Hopitalizations: No Immunizations Up To Date Tetanus Booster (TDap): Unknown PED Vaccines UTD: Yes Date of Pneumonia Vaccine: May 10, 2016 Date of Influenza Vaccine: May 09, 2017 Seasonal Allergies Seasonal Allergies: No Past Medical History Surgeries: Yes (FX RIB, KIDNEY STONES) Abdominal, Cardiac, Orthopedic, Prostatectomy Respiratory: No Sleep Apnea Currently Using CPAP: Yes Cardiac: Yes (AAA REPAIR WITH STENTS; CARDIAC CATH WIHT ANGIOPLASTY) Aneurysm, Chronic Edema/Swelling, Heart Attack, High Cholesterol, Hypertension Neurological: No Reproductive Disorders: No Sexually Transmitted Disease: No HIV/AIDS: No Kidney Stones Gastrointestinal: Yes Diverticulosis Musculoskeletal: Yes Chronic Back Pain Endocrine: No Loss of Vision: Denies Hearing Impairment: Denies Cancer: Yes (PROSTATECTOMY 1996-NO CHEMO OR RADIATION) Prostate, Melanoma Psychosocial: No Integumentary: No Blood Disorders: No Adverse Reaction/Blood Tranf: No Family Medical History Heart Disease, Hypertension Physical Exam Vital Signs Vital Signs - First Documented 09/30/20 18:39 Temp 36.8 Pulse 85 Resp 20 B/P (MAP) 234/108 (150) Pulse Ox 97 O2 Delivery Nasal Cannula O2 Flow Rate 2.0 Capillary Refill : Less Than 3 Seconds Height, Weight, BMI Height: 6'0.00" Weight: 270lbs. 0.0oz. 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 Norm as Tested Progress/Results/Core Measures Suspected Sepsis Recent Fever Within 48 Hours: No Infection Criteria Present: None New/Unexplained Altered Menta: No Sepsis Screen: No Definite Risk SIRS Temperature: Pulse: 85 Respiratory Rate: 20 Laboratory Tests 09/30/20 18:32: White Blood Count 10.9 Blood Pressure 234 /108 Mean: 150 Laboratory Tests 09/30/20 18:32: Creatinine 1.30, INR Comment 1.0, Platelet Count 275, Total Bilirubin 0.7 Results/Orders Lab Results Laboratory Tests Test 09/30/20 18:32 09/30/20 23:26 Range/Units White Blood Count 10.9 4.3-11.0 10^3/uL Red Blood Count 5.19 4.30-5.52 10^6/uL Hemoglobin 17.1 13.3-17.7 g/dL Hematocrit 50 40-54 % Mean Corpuscular Volume 97 80-99 fL Mean Corpuscular Hemoglobin 33 25-34 pg Mean Corpuscular Hemoglobin Concent 34 32-36 g/dL Red Cell Distribution Width 13.2 10.0-14.5 % Platelet Count 275 130-400 10^3/uL Mean Platelet Volume 9.5 9.0-12.2 fL Immature Granulocyte % (Auto) 0 % Neutrophils (%) (Auto) 77 H 42-75 % Lymphocytes (%) (Auto) 13 12-44 % Monocytes (%) (Auto) 8 0-12 % Eosinophils (%) (Auto) 1 0-10 % Basophils (%) (Auto) 1 0-10 % Neutrophils # (Auto) 8.4 H 1.8-7.8 10^3/uL Lymphocytes # (Auto) 1.4 1.0-4.0 10^3/uL Monocytes # (Auto) 0.8 0.0-1.0 10^3/uL Eosinophils # (Auto) 0.2 0.0-0.3 10^3/uL Basophils # (Auto) 0.1 0.0-0.1 10^3/uL Immature Granulocyte # (Auto) 0.0 0.0-0.1 10^3/uL Prothrombin Time 13.3 12.2-14.7 SEC INR Comment 1.0 0.8-1.4 Activated Partial Thromboplast Time 26 24-35 SEC Sodium Level 141 135-145 MMOL/L Potassium Level 3.5 L 3.6-5.0 MMOL/L Chloride Level 102 98-107 MMOL/L Carbon Dioxide Level 25 21-32 MMOL/L Anion Gap 14 5-14 MMOL/L Blood Urea Nitrogen 20 H 7-18 MG/DL Creatinine 1.30 0.60-1.30 MG/DL Estimat Glomerular Filtration Rate 53 BUN/Creatinine Ratio 15 Glucose Level 174 H 70-105 MG/DL Calcium Level 9.2 8.5-10.1 MG/DL Corrected Calcium 8.5-10.1 MG/DL Total Bilirubin 0.7 0.1-1.0 MG/DL Aspartate Amino Transf (AST/SGOT) 26 5-34 U/L Alanine Aminotransferase (ALT/SGPT) 23 0-55 U/L Alkaline Phosphatase 110 40-136 U/L Total Creatine Kinase 114 30-200 U/L Creatine Kinase MB 3.4 <6.6 NG/ML Troponin I < 0.028 <0.028 NG/ML Total Protein 8.0 6.4-8.2 GM/DL Albumin 4.8 H 3.2-4.5 GM/DL Urine Color YELLOW Urine Clarity CLEAR Urine pH 7.0 5-9 Urine Specific [place] 1.010 L 1.016-1.022 Urine Protein NEGATIVE NEGATIVE Urine Glucose (UA) TRACE H NEGATIVE Urine Ketones 1+ H NEGATIVE Urine Nitrite NEGATIVE NEGATIVE Urine Bilirubin NEGATIVE NEGATIVE Urine Urobilinogen 0.2 < = 1.0 MG/DL Urine Leukocyte Esterase NEGATIVE NEGATIVE Urine RBC (Auto) NEGATIVE NEGATIVE Urine RBC NONE /HPF Urine WBC NONE /HPF Urine Squamous Epithelial Cells RARE /HPF Urine Crystals NONE /LPF Urine Bacteria NEGATIVE /HPF Urine Casts NONE /LPF Urine Mucus NEGATIVE /LPF Urine Culture Indicated NO My Orders Orders - ALEJANDRO BOYKIN MD Ed Iv/Invasive Line Start (09/30/20 18:45) Cbc With Automated Diff (09/30/20 18:45) Comprehensive Metabolic Panel (09/30/20 18:45) Protime With Inr (09/30/20 18:45) Partial Thromboplastin Time (09/30/20 18:45) Chest 1 View, Ap/Pa Only (09/30/20 18:45) Ekg Tracing (09/30/20 18:45) Troponin I (09/30/20 18:45) Creatine Kinase (09/30/20 18:45) Creatine Kinase Mb (09/30/20 18:45) Hydralazine Injection (Apresoline Inject (09/30/20 20:00) Ct Angio Abd/Pelv W Wo (09/30/20 19:51) Iohexol Injection (Omnipaque 350 Mg/Ml 1 (09/30/20 20:00) Received Contrast (Hold Metformin- Contr (09/30/20 20:00) Ns (Ivpb) (Sodium Chloride 0.9% Ivpb Bag (09/30/20 20:00) Ondansetron Injection (Zofran Injectio (09/30/20 20:30) Hydralazine Injection (Apresoline Inject (09/30/20 21:00) Fentanyl Injection (Sublimaze Injection (09/30/20 22:00) Metoprolol Tartrate Injection (Lopressor (09/30/20 22:15) Ua Culture If Indicated (09/30/20 22:02) Ceftriaxone For Iv Use (Rocephin For I (09/30/20 22:45) Fentanyl Injection (Sublimaze Injection (09/30/20 23:45) Metoprolol Tartrate Injection (Lopressor (09/30/20 23:45) Medications Given in ED Current Medications Medications Dose Ordered Sig/Mirella Route Start Time Stop Time Status Last Admin Dose Admin Ceftriaxone Sodium 1000 mg/ Sterile Water 10 ml @ 200 mls/hr ONCE ONCE IV 09/30/20 22:45 09/30/20 22:47 DC 09/30/20 22:56 200 MLS/HR Fentanyl Citrate 50 mcg ONCE ONCE IVP 09/30/20 22:00 09/30/20 22:01 DC 09/30/20 22:46 50 MCG Fentanyl Citrate 75 mcg ONCE ONCE IVP 09/30/20 23:45 09/30/20 23:46 DC 09/30/20 23:38 75 MCG Hydralazine HCl 5 mg ONCE ONCE IV 09/30/20 20:00 09/30/20 20:01 DC 09/30/20 20:09 5 MG Hydralazine HCl 10 mg ONCE ONCE IV 09/30/20 21:00 09/30/20 21:01 DC 09/30/20 21:17 10 MG Iohexol 100 ml ONCE ONCE IV 09/30/20 20:00 09/30/20 20:07 DC 09/30/20 20:38 100 ML Metoprolol Tartrate 5 mg ONCE ONCE IV 09/30/20 22:15 09/30/20 22:16 DC 09/30/20 22:46 5 MG Metoprolol Tartrate 5 mg ONCE ONCE IV 09/30/20 23:45 09/30/20 23:46 DC 09/30/20 23:37 5 MG Ondansetron HCl 8 mg ONCE ONCE IVP 09/30/20 20:30 09/30/20 20:31 DC 09/30/20 20:37 8 MG Sodium Chloride 100 ml ONCE ONCE IV 09/30/20 20:00 09/30/20 20:07 DC 09/30/20 20:38 100 ML Vital Signs/I&O 09/30/20 09/30/20 09/30/20 09/30/20 18:39 18:39 20:10 21:22 Temp 36.8 Pulse 85 84 Resp 20 B/P (MAP) 234/108 (150) 211/113 (145) 222/104 (143) Pulse Ox 97 O2 Delivery Nasal Cannula Nasal Cannula O2 Flow Rate 2.0 2.00 09/30/20 23:45 Pulse 94 Resp 19 B/P (MAP) 192/105 Pulse Ox 99 O2 Delivery Nasal Cannula O2 Flow Rate 2.00 Capillary Refill : Less Than 3 Seconds Blood Pressure Mean: 150 Progress Note : Time: 23:45 Progress Note Patient with persistent hypertension in spite of hydralazine a total of 15 mg given. Patient subsequently given 5 mg of Lopressor x2 as well as fentanyl 50 mcg and then 75 mcg. Patient's pain seemed better controlled after the second dose of fentanyl. I did discuss all of the findings including laboratory evaluation and CT scan results with the patient and his daughter who is at the bedside. Recommended transfer to [facility] for further evaluation by urology. Discussed with Dr. Lawler on for urology at [facility] who was agreeable with transfer and recommended 1 g of Rocephin prior to transfer. Case also discussed with Dr. Berg who accepts the patient. ECG Initial ECG Impression Date: Sep 30, 2020 Initial ECG Impression Time: 18:28 Initial ECG Rate: 79 Initial ECG Rhythm: Normal Sinus Initial ECG Intervals: Normal Initial ECG Impression: Normal Comment Q waves inferior leads III Diagnostic Imaging Diagonstic Imaging: CT Plain Films/CT/US/NM/MRI: abdomen Comments [facility] [place], [place] NAME: MARIE RICO [facility] REC#: [id number] PT STATUS: REG ER : 1940 PHYSICIAN: ALEJANDRO BOYKIN MD ADMIT DATE: 09/30/20/ER Signed Date of Exam:09/30/20 CT ANGIO ABD/PELV W WO INDICATION: Abdominal aortic aneurysm, right flank pain. EXAM: CTA ABDOMEN PELVIS TECHNIQUE: CT abdomen and pelvis are obtained before and after intravenous contrast enhancement. Multiplanar MIP images were reconstructed and reviewed. FINDINGS: There is coronary calcific arteriosclerosis. There is some interstitial edema in the dependent portions of both lungs. There are 2 ring-like calcifications in the posterior segment of the right lobe of liver, each measuring 1 cm in diameter. These are unchanged compared to 05/21/2016. Gallbladder appears normal. Pancreas has a few calcifications in the head of the pancreas which may be from chronic pancreatitis. Adrenals are normal. There is a 4 mm calculus in the lower pole calyx of the left kidney. There is a 2.5 mm calculus in the interpolar ventral calyx of the left kidney. There are two 1 mm calculi in the upper pole calyces of the left kidney. There is a 2 mm calculus in the left proximal ureter causing obstruction with hydronephrosis of the left kidney and left perinephric edema. The right kidney is unremarkable. 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 There is a residual aneurysm sac that measures 5.3 x 5.1 cm which is slightly larger than the 5.1 x 4.2 cm measurement on 05/13/2016. There is no appreciable endoleak. There appears to be good apposition of the graft in both common iliac arteries and in the infrarenal abdominal aorta above the aneurysm. The celiac and superior mesenteric arteries are both widely patent. Renal arteries are both widely patent. The inferior mesenteric artery is reconstituted from SMA collaterals. Urinary bladder appears normal. Small bowel is not dilated. Appendix is normal. There is diverticulosis of the colon with a moderate amount of fecal retention. IMPRESSION: 1. Left nephrolithiasis without obstructing calculus in the left ureter causing pyelosinus rupture of urine into the left perirenal space and left posterior perirenal space. 2. Slight interval increase of the aneurysm sac of the abdominal aorta since 05/21/2016 but no evidence of endoleak. Both limbs of the graft are patent. Dictated by: Dictated on workstation # [id number] Dict: 09/30/202035 Trans: 09/30/202052 [facility] [id number] Interpreted by: MARIE DUONG MD Electronically signed by: MARIE DUONG MD 09/30/202052 [facility], [place] NAME: MARIE RICO [facility] REC#: [id number] PT STATUS: REG ER : 1940 PHYSICIAN: ALEJANDRO BOYKIN MD ADMIT DATE: 09/30/20/ER Signed Date of Exam:09/30/20 CHEST 1 VIEW, AP/PA ONLY INDICATION: Abdominal pain KUB at 7:06 PM FINDINGS: The heart size and pulmonary vascularity are normal. The lungs are clear. There are no effusions or pneumothoraces. IMPRESSION: No acute abnormalities in the chest. Dictated by: Dictated on workstation # [id number] Dict: 09/30/201903 Trans: 09/30/201920 [facility] [id number] Interpreted by: MARIE DUONG MD Electronically signed by: MARIE DUONG MD 09/30/201920 Departure Impression Primary Impression: Abdominal pain Qualified Codes: R10.12 - Left upper quadrant pain Additional Impression: pyelosinus rutpure of the left kidney Disposition: 02 XFER SHT-TRM HOSP Condition: Stable Transfer Transfer Reason: Exceeds level of care Time Spoke to Accepting Phy: 22:38 Transfer Progress Notes Case discussed with urology, Dr. Lawler as well as who accepts the patient for transfer Transfer Time: 23:55 Transfer Facility: [facility] Method of Transfer: EMS Departure-Patient Inst. Referrals: ADRIÁN SAUNDERS MD (PCP/Family) Primary Care Physician ALEJANDRO BOYKIN MD Sep 30, 2020 19:13
[2020-09-30 19:18] LABS: PROTHROMBIN TIME PATIENT 13.3 SEC (12.2-14.7)
[2020-09-30 19:24] LABS: ALANINE AMINOTRANSFERASE 23 U/L (0-55); ALBUMIN 4.8 GM/DL (3.2-4.5); ALKALINE PHOSPHATASE 110 U/L (40-136); BILIRUBIN,TOTAL 0.7 MG/DL (0.1-1.0); BUN/CREATININE RATIO 15; CALCIUM 9.2 MG/DL (8.5-10.1); CARBON DIOXIDE 25 MMOL/L (21-32); CHLORIDE 102 MMOL/L (98-107); CREATINE KINASE 114 U/L (30-200); GFR ESTIMATED 53; GLUCOSE 174 MG/DL (70-105); POTASSIUM 3.5 MMOL/L (3.6-5.0); SODIUM 141 MMOL/L (135-145)
[2020-09-30 19:31] LABS: CREATINE KINASE MB 3.4 NG/ML (<6.6)
[2020-09-30] MEDS ORDERED: hydrALAZINE (APESOLINE) 20 MG/ML VIAL IV ONE ×2 (20:00→21:00)
[2020-09-30] MEDS ORDERED: NS 100 ML (IVPB) BAG IV ONE (20:00)
[2020-09-30] MEDS ORDERED: IOHEXOL 350 MG/ML 100 ML (OMNIPAQUE 350) VIAL IV ONE (20:00)
[2020-09-30] MEDS ORDERED: HOLD METFORMIN - RECEIVED CONTRAST 20 ML VIAL IV SCH (20:00)
[2020-09-30] MEDS ORDERED: ONDANSETRON 4 MG/2 ML (SDV) Z0FRAN IVP ONE (20:30)
--- NOTE | 2020-09-30 20:52 | Diagnostic Imaging Report ---
INDICATION: Abdominal aortic aneurysm, right flank pain. EXAM: CTA ABDOMEN PELVIS TECHNIQUE: CT abdomen and pelvis are obtained before and after intravenous contrast enhancement. Multiplanar MIP images were reconstructed and reviewed. FINDINGS: There is coronary calcific arteriosclerosis. There is some interstitial edema in the dependent portions of both lungs. There are 2 ring-like calcifications in the posterior segment of the right lobe of liver, each measuring 1 cm in diameter. These are unchanged compared to 05/21/2016. Gallbladder appears normal. Pancreas has a few calcifications in the head of the pancreas which may be from chronic pancreatitis. Adrenals are normal. There is a 4 mm calculus in the lower pole calyx of the left kidney. There is a 2.5 mm calculus in the interpolar ventral calyx of the left kidney. There are two 1 mm calculi in the upper pole calyces of the left kidney. There is a 2 mm calculus in the left proximal ureter causing obstruction with hydronephrosis of the left kidney and left perinephric edema. The right kidney is unremarkable. 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 There is a residual aneurysm sac that measures 5.3 x 5.1 cm which is slightly larger than the 5.1 x 4.2 cm measurement on 05/13/2016. There is no appreciable endoleak. There appears to be good apposition of the graft in both common iliac arteries and in the infrarenal abdominal aorta above the aneurysm. The celiac and superior mesenteric arteries are both widely patent. Renal arteries are both widely patent. The inferior mesenteric artery is reconstituted from SMA collaterals. Urinary bladder appears normal. Small bowel is not dilated. Appendix is normal. There is diverticulosis of the colon with a moderate amount of fecal retention. IMPRESSION: 1. Left nephrolithiasis without obstructing calculus in the left ureter causing pyelosinus rupture of urine into the left perirenal space and left posterior perirenal space. 2. Slight interval increase of the aneurysm sac of the abdominal aorta since 05/21/2016 but no evidence of endoleak. Both limbs of the graft are patent. Dictated by: Dictated on workstation # [id number]
[2020-09-30] MEDS ORDERED: fentaNYL INJ 100 MCG/2 ML AMP IVP ONE ×2 (22:00→23:45)
[2020-09-30] MEDS ORDERED: meTOprolol 5 MG/5 ML (LOPRESSOR) VIAL IV ONE ×2 (22:15→23:45)
[2020-09-30] MEDS ORDERED: cefTRIAXone FOR IV USE 1,000 MG in WATER (STERILE) FOR INJECTION 10 ML IV ONE (22:45)
[2020-09-30 23:37] LABS: BILIRUBIN,URINE NEGATIVE (NEGATIVE); CLARITY,URINE CLEAR; COLOR,URINE YELLOW; GLUCOSE, URINE (UA) TRACE (NEGATIVE); KETONES,URINE 1+ (NEGATIVE); LEUKOCYTE ESTERASE ,URINE NEGATIVE (NEGATIVE); NITRITE,URINE NEGATIVE (NEGATIVE); PROTEIN,URINE NEGATIVE (NEGATIVE)
[2020-09-30 23:44] LABS: BACTERIA,URINE NEGATIVE /HPF; SQUAMOUS EPITHELIAL CELL,UR RARE /HPF
[2020-09-30 23:45] VITALS: BP 192/105
== END 2020-09-30 23:45 | disposition short-term general hospital (02) ==
LOC: EDUNIT# 18:20 → ER 18:22
DX: N28.89 Other specified disorders of kidney and ureter (principal); N20.2 Calculus of kidney with calculus of ureter; R60.0 Localized edema; I11.0 Hypertensive heart disease with heart failure; I50.9 Heart failure, unspecified; G47.30 Sleep apnea, unspecified; G89.29 Other chronic pain; E78.00 Pure hypercholesterolemia, unspecified; I71.4 Abdominal aortic aneurysm, without rupture; Z99.89 Dependence on other enabling machines and devices; Z95.5 Presence of coronary angioplasty implant and graft; Z95.9 Presence of cardiac and vascular implant and graft, unspecified; Z85.46 Personal history of malignant neoplasm of prostate; Z87.891 Personal history of nicotine dependence; Z88.5 Allergy status to narcotic agent; Z79.82 Long term (current) use of aspirin; Z79.891 Long term (current) use of opiate analgesic
CPT/HCPCS: 36415; 71045; 74174; 80053; 81000; 82550; 82553; 84484; 85025; 85610; 85730; 93005; 96374; 96375; 96376

== ENCOUNTER 2021-04-10 03:00 | Emergency (ER) | payer MEDICARE, OTHER ==
[~2021-04-10] VITALS: Ht 180 cm; Wt 123.0 kg
[~2021-04-10 03:00] MED LIST changes: +CEPH500T PO
--- NOTE | 2021-04-10 03:34 | ED GI ---
General Chief Complaint: Abdominal/GI Problems Stated Complaint: RECTAL BLEEDING Nursing Triage Note: rectal bleeding x2 hrs, denies pain/n/v Source of Information: Patient Exam Limitations: No Limitations History of Present Illness Date Seen by Provider: Apr 10, 2021 Time Seen by Provider: 03:14 Initial Comments Patient to ER by private conveyance with chief complaint of some bright red blood per rectum today. He says in years past he had something similar to this and a urologist cauterized some arteries back there. He is not having any chest pain shortness of air dizziness falls near syncope or weakness. He has a history of coronary artery disease. He is on aspirin but no blood thinners. History of prostatectomy related to prostate cancer. Primary care by Dr. Pack. Dr. Hurd did a colonoscopy in 2017 with no polyps seen. Dr. Kuo retrieved urethral stone in 2015. Dr. Salas did a colonoscopy with epinephrine injection related to diverticular bleed in 2011. He was hospitalized in 2009 for diverticulitis. Had colonoscopy with polyps removed after that by Dr. Salas. Allergies and Home Medications Allergies Coded Allergies: morphine (Verified Adverse Reaction, Mild, CONFUSION, CAN TAKE PERCOCET, 05/14/19) Patient Home Medication List Home Medication List Reviewed: Yes Aspirin (Adult Low Dose Aspirin EC) 81 Mg Tablet., 81 MG PO Tamekaa, (Reported) Entered as Reported by: CAMERON CRAFT on 02/07/18 1023 Benazepril HCl (Benazepril HCl) 20 Mg Tablet, 20 MG PO DAILY, (Reported) Entered as Reported by: MACIEL MCWILLIAMS on 11/03/15 0939 Carbamazepine (Epitol) 200 Mg Tablet, 200 MG PO BID, (Reported) Entered as Reported by: MACIEL MCWILLIAMS on 11/03/15 0939 Cephalexin (Cephalexin) 500 Mg Tablet, 500 MG PO TID Prescribed by: ALEJANDRO BOYKIN on 12/15/20 1022 Cholecalciferol (Vitamin D3) (Vitamin D3) 5,000 Unit Tablet, 5,000 UNIT PO DAILY, (Reported) Entered as Reported by: HUMPHREY MARTIN on 10/17/18 1028 Cyanocobalamin (Vitamin B-12) (Vitamin B12) 2,500 Mcg Tablet, 2,500 MCG PO DAILY, (Reported) Entered as Reported by: HUMPHREY MARTIN on 10/17/18 1028 Hydrocodone Bit/Acetaminophen (Lortab 5 Mg Tablet) 1 Tab Tab, 1-2 EACH PO Q6H PRN for PAIN-MODERATE Prescribed by: TALITA DAILEY on 05/14/19 1800 Meloxicam (Meloxicam) 15 Mg Tablet, 15 MG PO DAILY, (Reported) Entered as Reported by: MACIEL MCWILLIAMS on 11/03/15 09 Rosuvastatin Calcium (Crestor) 20 Mg Tablet, 20 MG PO DAILY, (Reported) Entered as Reported by: MACIEL MCWILLIAMS on 11/03/15 09 Vitamin E (Vitamin E) 200 Unit Capsule, 200 UNIT PO DAILY, (Reported) Entered as Reported by: HUMPHREY MARTIN on 10/17/18 1028 Review of Systems Review of Systems Constitutional: No fever, No malaise, No weakness EENTM: No Blurred Vision, No Double Vision Respiratory: Denies Cough, Denies Shortness of Air Cardiovascular: Denies Chest Pain, Denies Lightheadedness Gastrointestinal: Denies Constipated, Denies Nausea; Rectal Bleeding; Denies Vomiting Genitourinary: Denies Discharge, Denies Drainage Musculoskeletal: No back pain, No joint pain All Other Systems Reviewed Negative Unless Noted: Yes Past Efaezig-Tgmibk-Gnkmsa Hx Patient Social History Tobacco Use?: No Use of E-Cig and/or Vaping dev: No Substance use?: No Alcohol Use?: No Pt feels they are or have been: No Immunizations Up To Date Tetanus Booster (TDap): Less than 5yrs PED Vaccines UTD: Yes First/Initial COVID19 Vaccinat: 09/13 Second COVID19 Vaccination Jac: 10/11 COVID19 Vaccine Health Plan Specialist: carla Seasonal Allergies Seasonal Allergies: No Past Medical History Surgery/Hospitalization HX: diverticulosis Surgeries: Yes (FX RIB, KIDNEY STONES) Abdominal, Cardiac, Orthopedic, Prostatectomy Respiratory: No Sleep Apnea Currently Using CPAP: Yes Cardiac: Yes (AAA REPAIR WITH STENTS; CARDIAC CATH WIHT ANGIOPLASTY) Aneurysm, Chronic Edema/Swelling, Heart Attack, High Cholesterol, Hypertension Neurological: No Reproductive Disorders: No Sexually Transmitted Disease: No HIV/AIDS: No Kidney Stones Gastrointestinal: Yes Diverticulosis Musculoskeletal: Yes Chronic Back Pain Endocrine: No Loss of Vision: Denies Hearing Impairment: Denies Cancer: Yes (PROSTATECTOMY 1996-NO CHEMO OR RADIATION) Prostate, Melanoma Psychosocial: No Integumentary: No Blood Disorders: No Adverse Reaction/Blood Tranf: No Family Medical History Heart Disease, Hypertension Physical Exam Vital Signs Vital Signs - First Documented 04/10/21 03:08 Temp 36.4 Pulse 64 Resp 20 B/P (MAP) 189/110 (136) Pulse Ox 93 O2 Delivery Room Air Capillary Refill : Less Than 3 Seconds Height/Weight/BMI Height: 6'0.00" Weight: 270lbs. 0.0oz. 122.820566do; 37.00 BMI Method:Stated General Appearance: WD/WN, no apparent distress HEENT: PERRL/EOMI, pharynx normal Neck: full range of motion, normal inspection Respiratory: normal breath sounds, no respiratory distress, no accessory muscle use Cardiovascular: normal peripheral pulses, regular rate, rhythm Gastrointestinal: normal bowel sounds, non tender, soft, no organomegaly Rectal: normal rectal tone, blood streaked stool, heme positive stool; No hemorrhoids Extremities: normal range of motion, normal capillary refill Neurologic/Psychiatric: alert, oriented x 3 Skin: normal color, warm/dry Procedures/Interventions Suture Size: 4-0 Progress/Results/Core Measures Results/Orders Lab Results Laboratory Tests Test 04/10/21 03:37 Range/Units White Blood Count 5.8 4.3-11.0 10^3/uL Red Blood Count 4.35 4.30-5.52 10^6/uL Hemoglobin 14.4 13.3-17.7 g/dL Hematocrit 42 40-54 % Mean Corpuscular Volume 97 80-99 fL Mean Corpuscular Hemoglobin 33 25-34 pg Mean Corpuscular Hemoglobin Concent 34 32-36 g/dL Red Cell Distribution Width 13.2 10.0-14.5 % Platelet Count 233 130-400 10^3/uL Mean Platelet Volume 9.2 9.0-12.2 fL Immature Granulocyte % (Auto) 0 % Neutrophils (%) (Auto) 55 42-75 % Lymphocytes (%) (Auto) 26 12-44 % Monocytes (%) (Auto) 12 0-12 % Eosinophils (%) (Auto) 5 0-10 % Basophils (%) (Auto) 2 0-10 % Neutrophils # (Auto) 3.2 1.8-7.8 10^3/uL Lymphocytes # (Auto) 1.5 1.0-4.0 10^3/uL Monocytes # (Auto) 0.7 0.0-1.0 10^3/uL Eosinophils # (Auto) 0.3 0.0-0.3 10^3/uL Basophils # (Auto) 0.1 0.0-0.1 10^3/uL Immature Granulocyte # (Auto) 0.0 0.0-0.1 10^3/uL Sodium Level 138 135-145 MMOL/L Potassium Level 3.6 3.6-5.0 MMOL/L Chloride Level 106 98-107 MMOL/L Carbon Dioxide Level 23 21-32 MMOL/L Anion Gap 9 5-14 MMOL/L Blood Urea Nitrogen 17 7-18 MG/DL Creatinine 0.79 0.60-1.30 MG/DL Estimat Glomerular Filtration Rate 94 BUN/Creatinine Ratio 22 Glucose Level 136 H 70-105 MG/DL Calcium Level 8.7 8.5-10.1 MG/DL Corrected Calcium 8.8 8.5-10.1 MG/DL Total Bilirubin 0.7 0.1-1.0 MG/DL Aspartate Amino Transf (AST/SGOT) 17 5-34 U/L Alanine Aminotransferase (ALT/SGPT) 16 0-55 U/L Alkaline Phosphatase 79 40-136 U/L C-Reactive Protein High Sensitivity 0.16 0.00-0.50 MG/DL Total Protein 6.4 6.4-8.2 GM/DL Albumin 3.9 3.2-4.5 GM/DL My Orders Orders - VANGIERAYMON Amaya Cbc With Automated Diff (04/10/21 03:28) Comprehensive Metabolic Panel (04/10/21 03:28) Hs C Reactive Protein (04/10/21 03:28) Occult Blood Stool (04/10/21 03:29) Vital Signs/I&O 04/10/21 03:08 Temp 36.4 Pulse 64 Resp 20 B/P (MAP) 189/110 (136) Pulse Ox 93 O2 Delivery Room Air Blood Pressure Mean: 136 Progress Progress Note : Time: 03:34 Progress Note Bright red blood per rectum. He has had to have epinephrine cauterization of diverticular bleeds in the past by Dr. Salas. No prominent hemorrhoids are palp able. He has his prostate is surgically removed. We will have him follow-up with Dr. Lawrence, general surgery and put him on some Flagyl, probiotics and ciprofloxacin for a week. He is not having any reason to stay in the hospital today and is okay with this plan. Departure Impression Primary Impression: BRBPR (bright red blood per rectum) Disposition: 01 HOME, SELF-CARE Condition: Stable Departure-Patient Inst. Decision time for Depature: 03:54 Referrals: ADRIÁN PACK MD (PCP/Family) Primary Care Physician LARRY LAWRENCE DO Patient Instructions: Bloody Stools, Adult (DC) Add. Discharge Instructions: Call Dr. Lawrence today and make a follow-up appointment for your bright red blood from rectum. Start the Flagyl 3 times a day with food x1 week. Ciprofloxacin twice a day with food x1 week. full service supervisor a bottle of probiotics and take 1 capsule twice a day for the next 1 to 2 weeks to replenish normal bacteria in your gut and prevent antibiotic related diarrhea. Promptly return to the ER if you begin to have chest pain, shortness of air or other worrisome symptoms. All discharge instructions reviewed with patient and/or family. Voiced understanding. Scripts Ciprofloxacin HCl (Ciprofloxacin HCl) 500 Mg Tablet 500 MG PO BID for 7 Days, #14 TAB 0 Refills Prov: RAYMON VENCES 04/10/21 Metronidazole (Metronidazole) 500 Mg Tablet 500 MG PO TIDWM for 7 Days, #21 TAB 0 Refills Prov: RAYMON VENCES 04/10/21 L.acidoph & Paracasei,B.lactis (Probiotic) 1 Each Capsule 1 EACH PO BID for 14 Days, #28 CAP 0 Refills Prov: RAYMON VENCES 04/10/21 Copy Copies To 1: LARRY LAWRENCE DO RAYMON VENCES Apr 10, 2021 03:34
[2021-04-10 03:43] LABS: BASOPHILS # (AUTO) 0.1 10^3/uL (0.0-0.1); BASOPHILS % (AUTO) 2 % (0-10); EOSINOPHILS # (AUTO) 0.3 10^3/uL (0.0-0.3); EOSINOPHILS % (AUTO) 5 % (0-10); HEMATOCRIT 42 % (40-54); HEMOGLOBIN 14.4 g/dL (13.3-17.7); LYMPHOCYTES # (AUTO) 1.5 10^3/uL (1.0-4.0); LYMPHOCYTES % (AUTO) 26 % (12-44); MEAN CORPUSCULAR HEMOGLOBIN 33 pg (25-34); MEAN CORPUSCULAR HGB CONC 34 g/dL (32-36); MEAN CORPUSCULAR VOLUME 97 fL (80-99); MEAN PLATELET VOLUME 9.2 fL (9.0-12.2); MONOCYTES # (AUTO) 0.7 10^3/uL (0.0-1.0); MONOCYTES % (AUTO) 12 % (0-12); NEUTROPHILS # (AUTO) 3.2 10^3/uL (1.8-7.8); NEUTROPHILS % (AUTO) 55 % (42-75); PLATELET COUNT 233 10^3/uL (130-400); WHITE BLOOD COUNT 5.8 10^3/uL (4.3-11.0)
[2021-04-10 03:54] LABS: ALBUMIN 3.9 GM/DL (3.2-4.5); POTASSIUM 3.6 MMOL/L (3.6-5.0)
[2021-04-10 03:55] LABS: CALCIUM 8.7 MG/DL (8.5-10.1)
[2021-04-10 03:56] LABS: TOTAL PROTEIN 6.4 GM/DL (6.4-8.2)
[2021-04-10 03:58] LABS: BILIRUBIN,TOTAL 0.7 MG/DL (0.1-1.0)
[2021-04-10 04:00] LABS: CREATININE SERUM 0.79 MG/DL (0.60-1.30)
[2021-04-10] MEDS ORDERED: CIPR500T5 PO (04:11)
[2021-04-10] MEDS ORDERED: METR-145 PO (04:11)
[2021-04-10] MEDS ORDERED: L.AC1CAP6 PO (04:11)
[2021-04-10 04:15] VITALS: BP 167/90
[2021-04-10] MEDS ORDERED: metroNIDAZOLE 500 MG (FLAGYL) TAB PO ONE (04:15)
[2021-04-10] MEDS ORDERED: CIPROFLOXACIN 500 MG (CIPRO) TABLET PO ONE (04:15)
[2021-04-10] MEDS ORDERED: BENA40TA5 PO (14:16)
[2021-04-10] MEDS ORDERED: ROSU20TA32 PO (14:16)
[2021-04-10] MEDS ORDERED: AMLO-251 PO (14:16)
[2021-04-10] MEDS ORDERED: VITA200T5 PO (14:16)
[2021-04-10] MEDS ORDERED: ACET-2267 PO (14:16)
[2021-04-10] MEDS ORDERED: METO100T12 PO (14:16)
[2021-04-10] MEDS ORDERED: CARB200T6 PO (14:16)
[2021-04-10] MEDS ORDERED: CHOL200074 PO (14:16)
[2021-04-10] MEDS ORDERED: CYAN-23 PO (14:16)
[2021-04-10] MEDS ORDERED: IBUP-2185 PO (14:16)
--- NOTE | 2021-04-11 08:33 | Progress Note - Surgery ---
BALTAZAR HANDLEY 04/11/21 0833: Subjective Date Seen by a Provider: Apr 11, 2021 Time Seen by a Provider: 08:00 Subjective/Events-last exam No more bleeding, tolerated prep. No abdominal pain, pt is hungry. Objective Exam Capillary Refill : Less Than 3 Seconds General Appearance: No Apparent Distress HEENT: PERRL/EOMI Neck: Normal Inspection Gastrointestinal: normal bowel sounds, non tender, soft Extremity: Normal Inspection Neurologic/Psychiatric: Alert, Oriented x3, Normal Mood/Affect Skin: Normal Color, Warm/Dry Assessment/Plan Assessment/Plan Assessment/Plan GI bleed Diverticulosis CAD, obesity Colonoscopy today MORENITA HURD DO 04/11/21 1411: Subjective Subjective/Events-last exam Patient has not had any more bleeding from the rectum. He is tolerating the prep and pooping clear. Patient with no abdominal pain. Patient wanting food. Patient has no other complaints at this time. Denies any nausea vomiting fever sweats chills shortness of breath or chest pain. Objective Exam General Appearance: No Apparent Distress, WD/WN HEENT: PERRL/EOMI, TMs Normal Neck: Normal Inspection, Non Tender Respiratory: Chest Non Tender, No Accessory Muscle Use, No Respiratory Distress Cardiovascular: Regular Rate, Rhythm, No JVD Gastrointestinal: non tender, soft Extremity: Normal Inspection, Non Tender Neurologic/Psychiatric: Alert, Oriented x3, Normal Mood/Affect Skin: Normal Color, Warm/Dry Lymphatic: No Adenopathy Assessment/Plan Assessment/Plan Assessment/Plan Lower gastrointestinal bleed, diverticulosis, CAD, obesity Patient with no more bleeding. He tolerated his prep. Plan to do colonoscopy today. All questions answered. Supervisory-Addendum Brief Verification & Attestation Participated in pt care: history, MDM, physical Personally performed: exam, history, MDM, supervision of care Care discussed with: Medical Student Procedures: n/a Results interpretation: Verified all documentation Verification and Attestation of Medical Student E/M Service A medical student performed and documented this service in my presence. I reviewed and verified all information documented by the medical student and made modifications to such information, when appropriate. I personally performed the physical exam and medical decision making. Morenita Hurd Apr 11, 2021,08:33 BALTAZAR HANDLEY Apr 11, 2021 08:33 MORENITA HURD DO Apr 11, 2021 14:11
== END 2021-04-10 04:17 | disposition home or self-care (01) ==
LOC: EDUNIT# 03:00 → ER 03:03
DX: K62.5 Hemorrhage of anus and rectum (principal); G47.30 Sleep apnea, unspecified; I25.2 Old myocardial infarction; I10 Essential (primary) hypertension; G89.29 Other chronic pain; M54.9 Dorsalgia, unspecified; E78.00 Pure hypercholesterolemia, unspecified; Z90.79 Acquired absence of other genital organ(s); Z79.82 Long term (current) use of aspirin; Z79.891 Long term (current) use of opiate analgesic; Z79.899 Other long term (current) drug therapy
CPT/HCPCS: 36415; 80053; 82274; 85025; 86141

== ENCOUNTER 2021-04-10 05:35 | Day surgery (SDC) | payer MEDICARE, OTHER ==
[~2021-04-10] VITALS: Ht 182.9 cm; Wt 123.0 kg
[~2021-04-10 05:35] MED LIST changes: +CIPR500T5 PO; +L.AC1CAP6 PO; +METR-145 PO
--- NOTE | 2021-04-10 05:52 | ED Abdominal Pain ---
General Stated Complaint: RECTAL BLEEDING Source of Information: Patient Exam Limitations: No Limitations History of Present Illness Date Seen by Provider: Apr 10, 2021 Time Seen by Provider: 05:36 Initial Comments Patient to the ER by private conveyance from home with his son and chief complaint of new onset abdominal pain in addition to his bright red blood per rectum starting earlier this morning. He was recently seen in the ER and initiated on some antibiotics. He says about 15 minutes after he got home he started having stomach pain and pointed to his bilateral lower quadrant abdomen. No nausea fever chills sweats syncope, near syncope or dizziness. His son called and spoke to Dr. Sarabia and they return to the ER. Allergies and Home Medications Allergies Coded Allergies: morphine (Verified Adverse Reaction, Mild, CONFUSION, CAN TAKE PERCOCET, 05/14/19) Patient Home Medication List Home Medication List Reviewed: Yes Aspirin (Adult Low Dose Aspirin EC) 81 Mg Tablet., 81 MG PO [place], (Reported) Entered as Reported by: CAMERON CRAFT on 02/07/18 1023 Benazepril HCl (Benazepril HCl) 20 Mg Tablet, 20 MG PO DAILY, (Reported) Entered as Reported by: MACIEL MCWILLIAMS on 11/03/15 0939 Carbamazepine (Epitol) 200 Mg Tablet, 200 MG PO BID, (Reported) Entered as Reported by: MACIEL MCWILLIAMS on 11/03/15 0939 Cephalexin (Cephalexin) 500 Mg Tablet, 500 MG PO TID Prescribed by: ALEJANDRO BOYKIN on 12/15/20 1022 Cholecalciferol (Vitamin D3) (Vitamin D3) 5,000 Unit Tablet, 5,000 UNIT PO DAILY, (Reported) Entered as Reported by: HUMPHREY MARTIN on 10/17/18 1028 Ciprofloxacin HCl (Ciprofloxacin HCl) 500 Mg Tablet, 500 MG PO BID Prescribed by: RAYMON VENCES on 04/10/21 0411 Cyanocobalamin (Vitamin B-12) (Vitamin B12) 2,500 Mcg Tablet, 2,500 MCG PO DAILY, (Reported) Entered as Reported by: HUMPHREY MARTIN on 10/17/18 1028 Hydrocodone Bit/Acetaminophen (Lortab 5 Mg Tablet) 1 Tab Tab, 1-2 EACH PO Q6H PRN for PAIN-MODERATE Prescribed by: TALITA DAILEY on 05/14/19 1800 L.acidoph & Paracasei,B.lactis (Probiotic) 1 Each Capsule, 1 EACH PO BID Prescribed by: RAYMON VENCES on 04/10/21410 Meloxicam (Meloxicam) 15 Mg Tablet, 15 MG PO DAILY, (Reported) Entered as Reported by: MACIEL MCWILLIAMS on 11/03/15 09 Metronidazole (Metronidazole) 500 Mg Tablet, 500 MG PO TIDWM Prescribed by: RAYMON VENCES on 04/10/21410 Rosuvastatin Calcium (Crestor) 20 Mg Tablet, 20 MG PO DAILY, (Reported) Entered as Reported by: MACIEL MCWILLIAMS on 11/03/15 09 Vitamin E (Vitamin E) 200 Unit Capsule, 200 UNIT PO DAILY, (Reported) Entered as Reported by: HUMPHREY MARTIN on 10/17/18 1028 Review of Systems Review of Systems Constitutional: No chills, No diaphoresis EENTM: No Eye Pain, No Eye Tearing Respiratory: Denies Cough, Denies Shortness of Air Cardiovascular: Denies Chest Pain, Denies Lightheadedness Gastrointestinal: Denies Constipated, Denies Diarrhea, Denies Nausea; Rectal Bleeding Genitourinary: Denies Discharge, Denies Drainage Musculoskeletal: No back pain, No joint pain Skin: No pruritus, No rash Psychiatric/Neurological: Denies Headache, Denies Numbness All Other Systems Reviewed Negative Unless Noted: Yes Past Mguytwm-Jnkure-Hbpnvy Hx Patient Social History Tobacco Use?: No Use of E-Cig and/or Vaping dev: No Substance use?: No Immunizations Up To Date Tetanus Booster (TDap): Less than 5yrs PED Vaccines UTD: Yes First/Initial COVID19 Vaccinat: 09/13 Second COVID19 Vaccination Jac: 10/11 Seasonal Allergies Seasonal Allergies: No Past Medical History Surgery/Hospitalization HX: diverticulosis Surgeries: Yes (FX RIB, KIDNEY STONES) Abdominal, Cardiac, Orthopedic, Prostatectomy Respiratory: No Sleep Apnea Currently Using CPAP: Yes Cardiac: Yes (AAA REPAIR WITH STENTS; CARDIAC CATH WIHT ANGIOPLASTY) Aneurysm, Chronic Edema/Swelling, Heart Attack, High Cholesterol, Hypertension Neurological: No Reproductive Disorders: No Sexually Transmitted Disease: No HIV/AIDS: No Kidney Stones Gastrointestinal: Yes Diverticulosis Musculoskeletal: Yes Chronic Back Pain Endocrine: No Loss of Vision: Denies Hearing Impairment: Denies Cancer: Yes (PROSTATECTOMY 1996-NO CHEMO OR RADIATION) Prostate, Melanoma Psychosocial: No Integumentary: No Blood Disorders: No Adverse Reaction/Blood Tranf: No Family Medical History Heart Disease, Hypertension Physical Exam Vital Signs Capillary Refill : Height/Weight/BMI Height: 6'0.00" Weight: 270lbs. 0.0oz. 122.515062bn; 37.00 BMI Method:Stated General Appearance: WD/WN, no apparent distress HEENT: PERRL/EOMI, pharynx normal Neck: full range of motion, supple Respiratory: no respiratory distress, no accessory muscle use Cardiovascular: normal peripheral pulses, regular rate, rhythm Gastrointestinal: normal bowel sounds, non tender, soft Genital/Rectal: other (Yunior blood at rectum with normal rectal tone and no mass or protruding hemorrhoid palpable) Neurologic/Psychiatric: alert, normal mood/affect, oriented x 3 Skin: normal color, warm/dry Procedures/Interventions Suture Size: 4-0 Progress/Results/Core Measures Progress Progress Note : Time: 05:[address] Sarabia called and asked that we put the patient up in observation under Dr. Pack and he would see him this morning. Patient declined anything for pain at this time. Vital signs are aseptic with a blood pressure of 119/81. Departure Communication (Admissions) Time/Spoke to Admitting Phy: 05:50 Discussed the case with Dr. Pack and she is okay to observe the patient with consult to general surgery. Time/Spoke to Consulting Phy: 05:50 Dr. Sarabia agrees to consult on the case Impression Primary Impression: BRBPR (bright red blood per rectum) Disposition: ADMITTED INPATIENT Condition: Stable Admissions Decision to Admit Reason: Admit from ER (General) Decision to Admit/Date: Apr 10, 2021 Time/Decision to Admit Time: 05:50 Departure-Patient Inst. Referrals: ADRIÁN PACK MD (PCP/Family) Primary Care Physician RAYMON VENCES Apr 10, 2021 05:52
[2021-04-10 06:26] LABS: HEMOGLOBIN 15.2 g/dL (13.3-17.7)
[2021-04-10] MEDS ORDERED: ONDANSETRON 4 MG/2 ML (SDV) Z0FRAN IVP PRN (07:30)
[2021-04-10] MEDS ORDERED: fentaNYL INJ 100 MCG/2 ML AMP IVP PRN (07:30)
[2021-04-10 08:00] VITALS: BP 166/79
--- NOTE | 2021-04-10 08:25 | Consultation - Surgery ---
HUMPHREY DURHAM MED STUDENT 04/10/21 0825: History of Present Illness History of Present Illness Patient Consulted On(csottie/time) 04/10/21 08:12 Date Seen by Provider: Apr 10, 2021 Time Seen by Provider: 08:10 History of Present Illness surgery consult for: GI bleed HPI per ED: Patient to the ER by private conveyance from home with his son and chief complaint of new onset abdominal pain in addition to his bright red blood per rectum starting earlier this morning. He was recently seen in the ER and initiated on some antibiotics. He says about 15 minutes after he got home he started having stomach pain and pointed to his bilateral lower quadrant abdomen. No nausea fever chills sweats syncope, near syncope or dizziness. His son called and spoke to Dr. Lawrence and they return to the ER. Today: 80M presented to the ED with a chief complaint of passing "lots" of bright red blood in his stool at 2:30AM this morning. He came to the ED, was discharged then an hour or so later was admitted to the hospital per request by his son. He is accompanied by his daughter at bedside this morning. He felt like he had to had a BM and noticed blood running down his legs. It has been increasing in frequency this AM. He states he had a lot of gas and blood would come out. He complains of lower cramping abdominal pain, 4/10 pain. The pain stops after passing a BM. Patient had a BM in the hospital and saw blood again in stool. He states he's having diarrhea. He is ambulating and urinating without difficulty. Patient states this is the 4th time, last occurrence was 5 yrs ago. Previous times, patient states they would cauterize the arteries. He's had 6 colonoscopies and had polyps performed by Dr. Salas here [place]. Patient last ate at 3PM yesterday and would prefer to do bowel prep and colonoscopy as soon as possible. passed in September. Allergies and Home Medications Allergies Coded Allergies: morphine (Verified Adverse Reaction, Mild, CONFUSION, CAN TAKE PERCOCET, 05/14/19) Patient Home Medication List Aspirin (Adult Low Dose Aspirin EC) 81 Mg Tablet., 81 MG PO Monet, (Reported) Entered as Reported by: CAMERON CRAFT on 02/07/18 1026 Last Action: Held Benazepril HCl (Benazepril HCl) 20 Mg Tablet, 20 MG PO DAILY, (Reported) Entered as Reported by: MACIEL MCWILLIAMS on 11/03/15938 Carbamazepine (Epitol) 200 Mg Tablet, 200 MG PO BID, (Reported) Entered as Reported by: MACIEL MCWILLIAMS on 11/03/15938 Cephalexin (Cephalexin) 500 Mg Tablet, 500 MG PO TID Prescribed by: ALEJANDRO BOYKIN on 12/15/20 1022 Cholecalciferol (Vitamin D3) (Vitamin D3) 5,000 Unit Tablet, 5,000 UNIT PO DAILY, (Reported) Entered as Reported by: HUMPHREY MARTIN on 10/17/18 102 Ciprofloxacin HCl (Ciprofloxacin HCl) 500 Mg Tablet, 500 MG PO BID Prescribed by: RAYMON VENCES on 04/10/21410 Cyanocobalamin (Vitamin B-12) (Vitamin B12) 2,500 Mcg Tablet, 2,500 MCG PO DAILY, (Reported) Entered as Reported by: HUMPHREY MARTIN on 10/17/18 1028 Hydrocodone Bit/Acetaminophen (Lortab 5 Mg Tablet) 1 Tab Tab, 1-2 EACH PO Q6H PRN for PAIN-MODERATE Prescribed by: TALITA DAILEY on 05/14/19 1800 L.acidoph & Paracasei,B.lactis (Probiotic) 1 Each Capsule, 1 EACH PO BID Prescribed by: RAYMON VENCES on 04/10/21410 Meloxicam (Meloxicam) 15 Mg Tablet, 15 MG PO DAILY, (Reported) Entered as Reported by: MACIEL MCWILLIAMS on 11/03/15938 Last Action: Held Metronidazole (Metronidazole) 500 Mg Tablet, 500 MG PO TIDWM Prescribed by: RAYMON VENCES on 04/10/21410 Rosuvastatin Calcium (Crestor) 20 Mg Tablet, 20 MG PO DAILY, (Reported) Entered as Reported by: MACIEL MCWILLIAMS on 11/03/15938 Vitamin E (Vitamin E) 200 Unit Capsule, 200 UNIT PO DAILY, (Reported) Entered as Reported by: HUMPHREY MARTIN on 10/17/18 1028 Past Mjhysvl-Qapjaj-Wikcle Hx Patient Social History Smoking Status: Former Smoker (1ppd from age 10 yrs to 73 yrs old) Former Smoker, Quit: Nov 21, 2014 Type Used: Cigarettes 2nd Hand Smoke Exposure: No Recent Hopitalizations: No Alcohol Use?: Yes (occassion ) Have you traveled recently?: No Immunizations Up To Date Tetanus Booster (TDap): Less than 5yrs PED Vaccines UTD: Yes Date of Pneumonia Vaccine: May 10, 2016 Date of Influenza Vaccine: May 09, 2017 Seasonal Allergies Seasonal Allergies: No Surgeries History of Surgeries: Yes (FX RIB, KIDNEY STONES, prostate cancer) Surgeries: Abdominal (telescoping of intestines at 1 yrs old, abdominal anerysm), Cardiac (stents), Orthopedic, Prostatectomy Respiratory History of Respiratory Disorde: No Respiratory Disorders: Sleep Apnea Cardiovascular History of Cardiac Disorders: Yes (AAA REPAIR WITH STENTS; CARDIAC CATH WIHT ANGIOPLASTY) Cardiac Disorders: Aneurysm, Chronic Edema/Swelling, Heart Attack, High Cholesterol, Hypertension Neurological History of Neurological Disord: No Reproductive System Hx Reproductive Disorders: No Sexually Transmitted Disease: No HIV/AIDS: No Genitourinary Genitourinary Disorders: Kidney Stones Gastrointestinal History of Gastrointestinal Di: Yes Gastrointestinal Disorders: Diverticulosis Musculoskeletal History of Musculoskeletal Dis: Yes Musculoskeletal Disorders: Chronic Back Pain Endocrine History of Endocrine Disorders: No HEENT Loss of Vision: Denies Hearing Impairment: Denies Cancer History of Cancer: Yes (PROSTATECTOMY 1996-NO CHEMO OR RADIATION) Cancer: Prostate, Melanoma Psychosocial History of Psychiatric Problem: No Integumentary History of Skin or Integumenta: No Blood Transfusions History of Blood Disorders: No Adverse Reaction to a Blood Tr: No Family Medical History Significant Family History: Stroke (both parents) Review of Systems-General Constitutional: No diaphoresis, No dizziness, No fever, No malaise, No weakness EENTM: hearing loss, vision loss Respiratory: No cough; short of breath (d/t old age) Gastrointestinal: abdominal pain (RLQ, LLQ), diarrhea, other (bright red blood per rectum) Genitourinary: No dysuria, No frequency Musculoskeletal: joint pain, muscle pain Skin: No change in color, No dryness, No lesions Psychiatric/Neurological: Denies Anxiety, Denies Depressed, Denies Headache, Denies Numbness, Denies Paresthesia Physical Exam-General Problems Physical Exam Vital Signs Vital Signs - First Documented 04/10/21 05:44 Temp 35.8 Pulse 99 Resp 18 B/P (MAP) 125/87 (100) Pulse Ox 96 O2 Delivery Room Air Capillary Refill : General Appearance: WD/WN, no apparent distress Eyes: Bilateral Eye PERRL, Bilateral Eye EOMI HEENT: other (lipomas in outer corners of both eyes) Neck: non-tender, full range of motion, supple, normal inspection Respiratory: chest non-tender, lungs clear, normal breath sounds, no respiratory distress, no accessory muscle use Cardiovascular: regular rate, rhythm, no murmur Gastrointestinal: non tender, soft, abnormal bowel sounds (increased) Extremities: non-tender, normal inspection, no calf tenderness, other (calf edema) Neurologic/Psychiatric: no motor/sensory deficits, alert, normal mood/affect, oriented x 3 Skin: normal color Data Review Labs Laboratory Tests 04/10/21 06:19: Hemoglobin 15.2, Hematocrit 44 Assessment/Plan Assessment/Plan Assessment/Plan GI bleed Plan is to do bowel prep today and colonoscopy tomorrow. Patient is agreeable to plan. Will obtain consent and discuss procedure and risks with patient. LARRY LAWRENCE DO 04/10/21 1026: History of Present Illness History of Present Illness Time Seen by Provider: 09:19 History of Present Illness Pt states his abdominal pain is gone, but he is still having bright red blood per rectum. He felt a little weak at home. Allergies and Home Medications Allergies Coded Allergies: morphine (Verified Adverse Reaction, Mild, CONFUSION, CAN TAKE PERCOCET, 05/14/19) Patient Home Medication List Home Medication List Reviewed: Yes Aspirin (Adult Low Dose Aspirin EC) 81 Mg Tablet.dr, 81 MG PO TuThSa, (Reported) Entered as Reported by: CAMERON CRAFT on 02/07/18 1023 Last Action: Held Benazepril HCl (Benazepril HCl) 20 Mg Tablet, 20 MG PO DAILY, (Reported) Entered as Reported by: MACIEL MCWILLIAMS on 11/03/15 0939 Carbamazepine (Epitol) 200 Mg Tablet, 200 MG PO BID, (Reported) Entered as Reported by: MACIEL MCWILLIAMS on 11/03/15 0939 Cephalexin (Cephalexin) 500 Mg Tablet, 500 MG PO TID Prescribed by: ALEJANDRO BOYKIN on 12/15/20 1022 Cholecalciferol (Vitamin D3) (Vitamin D3) 5,000 Unit Tablet, 5,000 UNIT PO EPI LY, (Reported) Entered as Reported by: HUMPHREY MARTIN on 10/17/18 1028 Ciprofloxacin HCl (Ciprofloxacin HCl) 500 Mg Tablet, 500 MG PO BID Prescribed by: RAYMON VENCES on 04/10/21410 Cyanocobalamin (Vitamin B-12) (Vitamin B12) 2,500 Mcg Tablet, 2,500 MCG PO DAILY, (Reported) Entered as Reported by: HUMPHREY MARTIN on 10/17/18 1028 Hydrocodone Bit/Acetaminophen (Lortab 5 Mg Tablet) 1 Tab Tab, 1-2 EACH PO Q6H PRN for PAIN-MODERATE Prescribed by: TALITA DAILEY on 05/14/19 1800 L.acidoph & Paracasei,B.lactis (Probiotic) 1 Each Capsule, 1 EACH PO BID Prescribed by: RAYMON VENCES on 04/10/21410 Meloxicam (Meloxicam) 15 Mg Tablet, 15 MG PO DAILY, (Reported) Entered as Reported by: MCAIEL MCWILLIAMS on 11/03/15 0939 Last Action: Held Metronidazole (Metronidazole) 500 Mg Tablet, 500 MG PO TIDWM Prescribed by: RAYMON VENCES on 04/10/21410 Rosuvastatin Calcium (Crestor) 20 Mg Tablet, 20 MG PO DAILY, (Reported) Entered as Reported by: MACIEL MCWILLIAMS on 11/03/15938 Vitamin E (Vitamin E) 200 Unit Capsule, 200 UNIT PO DAILY, (Reported) Entered as Reported by: HUMPHREY MARTIN on 10/17/18 1028 Past Hkzrwgn-Sfltkp-Ppfxyr Hx Patient Social History Smoking Status: Former Smoker (1ppd from age 10 yrs to 73 yrs old) Type Used: Cigarettes Alcohol Use?: Yes (occassion ) Surgeries History of Surgeries: Yes (FX RIB, KIDNEY STONES, prostate cancer) Surgeries: Abdominal (telescoping of intestines at 1 yrs old, abdominal anerysm), Cardiac (stents), Orthopedic, Prostatectomy Respiratory History of Respiratory Disorde: No Cardiovascular History of Cardiac Disorders: Yes Cardiac Disorders: Coronary Artery Disease, Heart Attack, High Cholesterol, Hypertension Neurological History of Neurological Disord: No Genitourinary History of Genitourinary Disor: Yes Genitourinary Disorders: Prostate Problems Gastrointestinal History of Gastrointestinal Di: Yes Gastrointestinal Disorders: Gastrointestinal Bleed, Diverticulosis Musculoskeletal History of Musculoskeletal Dis: No Endocrine History of Endocrine Disorders: No HEENT History of HEENT Disorders: No Loss of Vision: Bilateral Hearing Impairment: Hard of Hearing Cancer History of Cancer: Yes Cancer: Prostate, Melanoma Family Medical History Significant Family History: Stroke (both parents) Review of Systems-General Constitutional: No diaphoresis, No dizziness, No fever; malaise, weakness EENTM: hearing loss, vision loss Respiratory: No cough Cardiovascular: No chest pain; Hx of Intervention; No palpitations Gastrointestinal: abdominal pain (RLQ, LLQ), diarrhea, other (bright red blood per rectum) Genitourinary: No dysuria; frequency; No hematuria Musculoskeletal: joint pain, muscle pain Skin: No change in color, No dryness, No lesions Psychiatric/Neurological: Denies Anxiety, Denies Depressed, Denies Headache, Denies Numbness, Denies Paresthesia Physical Exam-General Problems Physical Exam General Appearance: WD/WN, no apparent distress, obese Eyes: Bilateral Eye PERRL, Bilateral Eye EOMI HEENT: No scleral icterus (R), No scleral icterus (L); other (lipomas in outer corners of both eyes) Neck: non-tender, supple Respiratory: lungs clear, normal breath sounds, no respiratory distress Cardiovascular: regular rate, rhythm, no murmur Gastrointestinal: non tender, soft, abnormal bowel sounds (increased) Rectal: deferred Back: no vertebral tenderness Extremities: non-tender, normal inspection, no calf tenderness, other (calf edema) Neurologic/Psychiatric: no motor/sensory deficits, alert, normal mood/affect, oriented x 3 Skin: normal color Lymphatic: no adenopathy (neck, axilla or groin) Assessment/Plan Assessment/Plan Assessment/Plan GI Bleed Diverticulosis CAD, Obesity Plan bowel prep and then colonoscopy. Supervisory-Addendum Brief Verification & Attestation Participated in pt care: history, MDM, physical Personally performed: exam, history, MDM, supervision of care Care discussed with: Medical Student Procedures: n/a Verification and Attestation of Medical Student E/M Service A medical student performed and documented this service. I then reviewed and verified all information documented by the medical student and made modifications to such information, when appropriate. I personally performed a physical exam, medical decision making and then discussed any differences between the notes and made revisions as necessary to create one note. Larry Lawrence , 04/10/21 , 10:28 HUMPHREY DURHAM MED STUDENT Apr 10, 2021 08:25 LARRY LAWRENEC DO Apr 10, 2021 10:26
[2021-04-10] MEDS: LACTATED RINGERS 1,000 ML IV SCH ×2 (08:57→20:36)
[2021-04-10] MEDS ORDERED: PANTOPRAZOLE 40 MG (PROTONIX) VIAL IV SCH (09:00)
--- NOTE | 2021-04-10 09:29 | History & Physicial ---
History of Present Illness History of Present Illness Reason for visit/HPI PT IS AN 80 Y/O MALE WHO IS KNOWN TO ME FROM CLINIC. MR. RICO PRESENTED TO THE EMERGENCY DEPARTMENT AFTER HAVING MULTIPLE LARGE BLOODY BOWEL MOVEMENTS. PER HIS REPORT HE STARTED TO HAVE STOOLS EARLIER IN THE EVENING, PRESENTED TO THE ER, WAS EVALUATED, FOUND TO BE STABLE, AND WAS DISCHARGED TO HOME WITH TREATMENT FOR DIVERTICULITIS. HE CONTINUED TO HAVE MULTIPLE LOOSE STOOLS AND WAS BROUGHT BACK TO THE HOSPITAL BY HIS SON WHO INSISTED ON ADMISSION AFTER HAVING DISCUSSED HIS DAD'S SITUATION WITH THIS PROVIDER AND THE GENERAL SURGEON WHO HAS PREVIOUSLY BEEN TAKEN CARE OF HIS FATHER. THIS MORNING MR. RICO REPORTS THAT HIS STOMACH IS FEELING BETTER, HE HAS HAD 3+ LOOSE AND BLOODY STOOLS SINCE GETTING UP TO HIS ROOM IN THE HOSPITAL Date of Admission Apr 10, 2021 at 06:00 Date Seen by a Provider: Apr 10, 2021 Time Seen by a Provider: 09:00 Attending Physician Adrián Pack MD Admitting Physician Adrián Pack MD Consult DR. LAWRENCE Allergies and Home Medications Allergies Coded Allergies: morphine (Verified Adverse Reaction, Mild, CONFUSION, CAN TAKE PERCOCET, 05/14/19) Patient Home Medication List Home Medication List Reviewed: Yes Aspirin (Adult Low Dose Aspirin EC) 81 Mg Tablet., 81 MG PO MirtahSa, (Reported) Entered as Reported by: CAMERON CRAFT on 02/07/18 1023 Last Action: Held Benazepril HCl (Benazepril HCl) 20 Mg Tablet, 20 MG PO DAILY, (Reported) Entered as Reported by: MACIEL MCWILLIAMS on 11/03/15 0939 Carbamazepine (Epitol) 200 Mg Tablet, 200 MG PO BID, (Reported) Entered as Reported by: MACIEL MCWILLIAMS on 11/03/15 0939 Cephalexin (Cephalexin) 500 Mg Tablet, 500 MG PO TID Prescribed by: ALEJANDRO BOYKIN on 12/15/20 1022 Cholecalciferol (Vitamin D3) (Vitamin D3) 5,000 Unit Tablet, 5,000 UNIT PO DAILY, (Reported) Entered as Reported by: HUMPHREY MARTIN on 10/17/18 1028 Ciprofloxacin HCl (Ciprofloxacin HCl) 500 Mg Tablet, 500 MG PO BID Prescribed by: RAYMON VENCES on 04/10/21 0411 Cyanocobalamin (Vitamin B-12) (Vitamin B12) 2,500 Mcg Tablet, 2,500 MCG PO DAILY, (Reported) Entered as Reported by: HUMPHREY MARTIN on 10/17/18 1028 Hydrocodone Bit/Acetaminophen (Lortab 5 Mg Tablet) 1 Tab Tab, 1-2 EACH PO Q6H PRN for PAIN-MODERATE Prescribed by: TALITA DAILEY on 05/14/19 1800 L.acidoph & Paracasei,B.lactis (Probiotic) 1 Each Capsule, 1 EACH PO BID Prescribed by: RAYMON VENCES on 04/10/21 0411 Meloxicam (Meloxicam) 15 Mg Tablet, 15 MG PO DAILY, (Reported) Entered as Reported by: MACIEL MCWILLIAMS on 11/03/15 09 Last Action: Held Metronidazole (Metronidazole) 500 Mg Tablet, 500 MG PO TIDWM Prescribed by: RAYMON VENCES on 04/10/21 041 Rosuvastatin Calcium (Crestor) 20 Mg Tablet, 20 MG PO DAILY, (Reported) Entered as Reported by: MACIEL MCWILLIAMS on 11/03/15938 Vitamin E (Vitamin E) 200 Unit Capsule, 200 UNIT PO DAILY, (Reported) Entered as Reported by: HUMPHREY MARTIN on 10/17/18 1028 Past Wxilfzt-Osmnws-Zblagd Hx Patient Social History Marrital Status: Living Status: LIVES IN HOME [place] IN [place], KIDS LIVE CLOSEBY Employed/Student: retired Smoking Status: Former Smoker (1ppd from age 10 yrs to 73 yrs old) Former Smoker, Quit: Nov 21, 2014 2nd Hand Smoke Exposure: No Recent Hopitalizations: No Social History , LIVES AT HOME ALONE, KIDS LIVE CLOSE Have you traveled recently?: No Alcohol Use?: Yes (occassion ) Immunizations Up To Date Tetanus Booster (TDap): Less than 5yrs Pediatric: Yes Date of Pneumonia Vaccine: May 10, 2016 Date of Influenza Vaccine: May 09, 2017 Seasonal Allergies Seasonal Allergies: No Surgeries Yes (FX RIB, KIDNEY STONES, prostate cancer) Abdominal (telescoping of intestines at 1 yrs old, abdominal anerysm), Cardiac (stents), Orthopedic, Prostatectomy Respiratory No Currently Using CPAP: Yes Cardiovascular Yes (AAA REPAIR WITH STENTS; CARDIAC CATH WIHT ANGIOPLASTY) Aneurysm, Chronic Edema/Swelling, Heart Attack, High Cholesterol, Hypertension Neurological No Reproductive System Hx Reproductive Disorders: No Sexually Transmitted Disease: No HIV/AIDS: No Genitourinary Kidney Stones Gastrointestinal Yes Gastrointestinal Bleed (DIVERTICULAR BLEED), Diverticulosis Musculoskeletal Yes Chronic Back Pain Endocrine History of Endocrine Disorders: No HEENT Loss of Vision: Denies Hearing Impairment: Denies Cancer Yes (PROSTATECTOMY 1996-NO CHEMO OR RADIATION) Prostate, Melanoma Did You Recieve Any Treatments: No Psychosocial History of Psychiatric Problem: No Integumentary History of Skin or Integumenta: No Blood Transfusions History of Blood Disorders: No Adverse Reaction to a Blood Tr: No Reviewed Nursing Assessment Reviewed/Agree w Nursing PMH: Yes Family Medical History Significant Family History: Hypertension, Stroke (both parents) Review of Systems Constitutional: No chills, No fever, No malaise, No weakness EENTM: hearing loss; No hoarseness, No throat pain Respiratory: No cough, No dyspnea on exertion, No short of breath Cardiovascular: No chest pain, No edema, No palpitations Gastrointestinal: No abdominal pain; diarrhea; No loss of appetite; other (BRIGHT RED BLOODY STOOLS) Genitourinary: no symptoms reported Musculoskeletal: joint pain, muscle weakness Skin: no symptoms reported Psychiatric/Neurological: Denies Anxiety, Denies Depressed, Denies Weakness All Other Systems Reviewed Negative Unless Noted: Yes Physical Exam Vital Signs Vital Signs - First Documented 04/10/21 05:44 Temp 35.8 Pulse 99 Resp 18 B/P (MAP) 125/87 (100) Pulse Ox 96 O2 Delivery Room Air Capillary Refill : Height, Weight, BMI Height: 6'0.00" Weight: 270lbs. 0.0oz. 122.941234pq; 36.00 BMI Method:Stated General Appearance: No Apparent Distress, WD/WN Eyes: Bilateral Eye PERRL, Bilateral Eye EOMI, Bilateral Eye Other (FLUID COLLECTION BILATERAL CONJUCTIVA TO SCLERA AT UPPER OUTER QUADRANTS BILATERAL EYES) Neck: Full Range of Motion, Normal Inspection, Non Tender, Supple Respiratory: Chest Non Tender, Lungs Clear, Normal Breath Sounds, No Accessory Muscle Use, No Respiratory Distress Cardiovascular: Regular Rate, Rhythm, No Edema, No Gallop Gastrointestinal: No Organomegaly, No Pulsatile Mass, Non Tender, Soft, Other (HYPERACTIVE BOWEL SOUNDS) Rectal: Other (SURGEON COMING IN TO EVAL PT- DEFER RECTAL TO SURGEON ON PT'S CASE) Extremity: Normal Capillary Refill, No Pedal Edema Neurologic/Psychiatric: Alert, Oriented x3, No Motor/Sensory Deficits, Normal Mood/Affect, 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 LAWRENCE ON DECISION FOR COLONOSCOPE DURING THIS ADMISSION - IV FLAGYL STARTED CHRONIC HYPERTENSION - MONITOR PRESSURES, RESTART HOME MEDS ONCE RECONCILED. DVT PROPHYLAXIS WITH SCD'S GI PROPHYLAXIS WITH PROTONIX AND PROBIOTICS Admission Diagnosis ACUTE DIVERTICULAR BLEED CHRONIC HYPERTENSION Admission Status: Observation ADRIÁN PACK MD Apr 10, 2021 09:29
[2021-04-10] MEDS ORDERED: metroNIDAZOLE 500MG/100ML IVPB 100 ML IV SCH (10:45)
[2021-04-10 10:57] LABS: HEMOGLOBIN 14.1 g/dL (13.3-17.7)
[2021-04-10 12:00] VITALS: BP 168/78
[2021-04-10] MEDS ORDERED: BISACODYL 5 MG (DULCOLAX) TABLET PO SCH ×4 (12:00→15:00)
[2021-04-10] MEDS: LACTOBACILLUS ACIDOPHILUS (PROBIOTIC) CAPSULE PO SCH ×2 (12:38→17:52)
[2021-04-10] MEDS ORDERED: IBUP-2185 PO (14:16)
[2021-04-10] MEDS ORDERED: CYAN-23 PO (14:16)
[2021-04-10] MEDS ORDERED: METO100T12 PO (14:16)
[2021-04-10] MEDS ORDERED: CHOL200074 PO (14:16)
[2021-04-10] MEDS ORDERED: VITA200T5 PO (14:16)
[2021-04-10] MEDS ORDERED: ROSU20TA32 PO (14:16)
[2021-04-10] MEDS ORDERED: ACET-2267 PO (14:16)
[2021-04-10] MEDS ORDERED: CARB200T6 PO (14:16)
[2021-04-10] MEDS ORDERED: AMLO-251 PO (14:16)
[2021-04-10] MEDS ORDERED: BENA40TA5 PO (14:16)
[2021-04-10 16:00] VITALS: BP 142/76
[2021-04-10] MEDS ORDERED: polyethylene glycoL Bowel Prep(MIRALAX) 238 GM PO SCH ×2 (18:00)
[2021-04-10] MEDS: metroNIDAZOLE 500MG/100ML IVPB 100 ML IV SCH (19:46)
[2021-04-10 19:53] VITALS: BP 154/73
[2021-04-10] MEDS: PANTOPRAZOLE 40 MG (PROTONIX) VIAL IV SCH (20:32)
[2021-04-11] VITALS: BP 128/64
[2021-04-11 04:00] VITALS: BP 161/78
[2021-04-11] MEDS: metroNIDAZOLE 500MG/100ML IVPB 100 ML IV SCH (04:53)
[2021-04-11] MEDS ORDERED: LACTATED RINGERS 1,000 ML IV STA (08:01)
[2021-04-11] MEDS ORDERED: LACTATED RINGERS 1,000 ML IV ONE (08:03)
[2021-04-11] MEDS ORDERED: MIDAZOLAM 2 MG/2 ML (VERSED) VIAL ONE (08:09)
[2021-04-11] MEDS ORDERED: PROPOFOL INJECTION 50 ML IV ONE (08:09)
[2021-04-11 08:55] VITALS: BP 137/65
[2021-04-11] MEDS: LACTOBACILLUS ACIDOPHILUS (PROBIOTIC) CAPSULE PO SCH (08:55)
[2021-04-11] MEDS: PANTOPRAZOLE 40 MG (PROTONIX) VIAL IV SCH (09:37)
[2021-04-11] MEDS: LACTATED RINGERS 1,000 ML IV SCH (09:38)
--- NOTE | 2021-04-11 10:14 | Discharge Summary ---
Discharge Summary Hospital Course Hospital Course Date of Admission: Apr 10, 2021 at 06:00 Admission Diagnosis : ACUTE DIVERTICULAR BLEED CHRONIC HYPERTENSION Family Physician/Provider: Beatriz Pack MD Date of Discharge: 04/11/21 Discharge Diagnosis: acute diverticulitis (early) with bleeding. Hypertension Hospital Course: PT IS AN 80 Y/O MALE WHO IS KNOWN TO ME FROM CLINIC. MR. RICO PRESENTED TO THE EMERGENCY DEPARTMENT AFTER HAVING MULTIPLE LARGE BLOODY BOWEL MOVEMENTS. PER HIS REPORT HE STARTED TO HAVE STOOLS EARLIER IN THE EVENING, PRESENTED TO THE ER, WAS EVALUATED, FOUND TO BE STABLE, AND WAS DISCHARGED TO HOME WITH TREATMENT FOR DIVERTICULITIS. HE CONTINUED TO HAVE MULTIPLE LOOSE STOOLS AND WAS BROUGHT BACK TO THE HOSPITAL BY HIS SON WHO INSISTED ON ADMISSION AFTER HAVING DISCUSSED HIS DAD'S SITUATION WITH THIS PROVIDER AND THE GENERAL SURGEON WHO HAS PREVIOUSLY BEEN TAKEN CARE OF HIS FATHER. THIS MORNING MR. RICO REPORTS THAT HIS STOMACH IS FEELING BETTER, HE HAS HAD 3+ LOOSE AND BLOODY STOOLS SINCE GETTING UP TO HIS ROOM IN THE HOSPITAL. Patient continued to have blood bowel movements- 48 in total since this began. The bowel prep really cleaned him out and appears to have gotten rid of all of the blood. Colonoscopy demonstrated diverticula, a polyp in descending colon that will be sent to pathology. and early diverticulitis. He will complete the flagyl course given to him by the ER as well as probiotics. He will not take the ciprofloxacin though. Patient was deemed stable for discharge as his abdominal pain and melena have resolved. He will follow up with Dr. Pack. Labs and Pending Lab Test: Laboratory Tests 04/10/21 10:40: Hemoglobin 14.1, Hematocrit 41 Home Meds Active Reported Ibuprofen 200 Mg Capsule 400 Mg PO Q8H PRN Tylenol Extra Strength (Acetaminophen) 500 Mg Tablet 1,000 Mg PO Q8H PRN Vitamin B-12 (Cyanocobalamin (Vitamin B-12)) 1,000 Mcg Capsule 1,000 Mcg PO DAILY Rosuvastatin Calcium 20 Mg Tablet 20 Mg PO HS Amlodipine Besylate 10 Mg Tablet 10 Mg PO DAILY Benazepril HCl 40 Mg Tab 40 Mg PO DAILY Metoprolol Tartrate 100 Mg Tablet 100 Mg PO BID Carbamazepine 200 Mg Tablet 200 Mg PO BID Vitamin E (Vitamin E Acid Succinate) 200 Unit Tablet 200 Unit PO DAILY Vitamin D3 (Cholecalciferol (Vitamin D3)) 50 Mcg Capsule 50 Mcg PO DAILY Adult Low Dose Aspirin EC (Aspirin) 81 Mg Tablet. 81 Mg PO Q48H Meloxicam 15 Mg Tablet 15 Mg PO DAILY Assessment/Pt Instructions You may take the probiotics. Do not take the ciprofloxacin at this time as the risk likely outweigh the benefits in your case. Complete the metronidazole course. Follow up with Dr. Pack next week. Return to ER if bleeding reoccurs Discharge Planning: >30 minutes discharge planning Discharge Instructions Discharge Diet: Eat Small Frequent Meals (advance diet slowly) Activity as Tolerated: Yes Discharge Physical Examination Vital Signs Vital Signs Date Time Temp Pulse Resp B/P (MAP) Pulse Ox O2 Delivery O2 Flow Rate FiO2 04/11/21 08:55 67 16 95 OxyMask 10 04/11/21 08:02 04/11/21 04:00 35.7 General Appearance: No Apparent Distress HEENT: PERRL/EOMI Respiratory: Chest Non Tender, Lungs Clear, Normal Breath Sounds Cardiovascular: Regular Rate, Rhythm Gastrointestinal: Soft Extremity: No Calf Tenderness Skin: Normal Color, Warm/Dry Neurologic/Psychiatric: Alert, Oriented x3 Allergies: Coded Allergies: morphine (Verified Adverse Reaction, Mild, CONFUSION, CAN TAKE PERCOCET, 05/14/19) Discharge Summary Date of Admission Apr 10, 2021 at 06:00 Date of Discharge Clinical Quality Measures DVT/VTE Risk/Contraindication: Contraindications-Pharm: Other *list below* Other: HOLDING LOVENOX DUE TO GI BLEED ALLAN BLANK MD Apr 11, 2021 10:14
[2021-04-11 12:27] VITALS: BP 137/65
--- NOTE | 2021-04-11 14:22 | OPERATIVE REPORT ---
DATE OF SERVICE: 04/11/2021 PREOPERATIVE DIAGNOSIS: Diverticular bleed or lower gastrointestinal bleed. POSTOPERATIVE DIAGNOSES: Diverticulosis and descending colon polyp. PROCEDURE: Colonoscopy with hot biopsy polypectomy x1. SURGEON: Morenita Hurd DO ANESTHESIA: Per [employer]. ESTIMATED BLOOD LOSS: None. COMPLICATIONS: None. INDICATIONS: The patient is an 80-year-old male who was admitted for lower gastrointestinal bleed. The patient has a history of diverticulosis and history of colon polyps. He understands risks and benefits of procedure and wished to proceed with procedure. Consent was signed in the chart. DESCRIPTION OF PROCEDURE: The patient was taken to the endoscopy suite, placed in left lateral recumbent position. Timeout was performed. Digital rectal exam was performed. No palpable polyps, masses or ulcerations. Scope was inserted in the rectum and advanced all the way to cecum with minimal difficulty. Prep was adequate. Scope was then slowly retracted back. The patient with pandiverticulosis. There were no polyps, masses or ulcerations within the cecum, although diverticulitis began to be seen. Scope was then slowly retracted back. No polyps, masses or ulcerations within the ascending, transverse colon. In the descending colon, a small polyp was present, which hot biopsy polypectomy was performed. Scope was then continued to be slowly retracted back. No polyps, masses or ulcerations within the remainder of the descending, sigmoid colon. Again noting pandiverticulosis. Scope was continuously retracted back in the rectum, it was also retroflexed noting some slight internal hemorrhoids. No other pathology. Scope was returned to its normal position, slowly withdrawn until completely removed. No active bleeding visualized throughout the entire colon. RECOMMENDATIONS: The patient will follow up on pathology. Further recommendations . The patient will need repeat colonoscopy on as needed basis. Job ID: [id number] DocumentID: [id number] Dictated Date: 04/11/2021 13:49:17 Electric Motor Mechanic Date: 04/11/2021 14:21:06 Dictated By: MORENITA HURD DO
--- NOTE | 2021-04-12 08:16 | Anesthesia-General Post-Op ---
MAC Patient Condition Mental Status/LOC: Same as Preop Cardiovascular: Satisfactory Nausea/Vomiting: Absent Respiratory: Satisfactory Pain: Controlled Complications: Absent Post Op Complications Complications None Follow Up Care/Instructions Patient Instructions None needed. Anesthesiology Discharge Order Discharge Order Patient is doing well, no complaints, stable vital signs, no apparent adverse anesthesia problems. No complications reported per nursing. KAY CONRAD CRNA Apr 12, 2021 08:16
== END 2021-04-11 12:30 | disposition home or self-care (01) ==
LOC: EDUNIT# 05:35 → ER 05:38 → 4TH 06:00 → SDC 06:00 → UNDOADMOB 06:00 → UNDODISOB 04-11 12:30 → SDC 04-11 12:30
PROVIDERS: ATTEND Family Medicine
DX: D12.4 Benign neoplasm of descending colon (principal); K57.30 Diverticulosis of large intestine without perforation or abscess without bleeding; I10 Essential (primary) hypertension; K57.33 Diverticulitis of large intestine without perforation or abscess with bleeding; E78.00 Pure hypercholesterolemia, unspecified; G89.29 Other chronic pain; M54.9 Dorsalgia, unspecified; I25.10 Atherosclerotic heart disease of native coronary artery without angina pectoris; E66.9 Obesity, unspecified; G47.33 Obstructive sleep apnea (adult) (pediatric); Z79.899 Other long term (current) drug therapy; Z79.1 Long term (current) use of non-steroidal anti-inflammatories (NSAID); Z79.82 Long term (current) use of aspirin; Z79.2 Long term (current) use of antibiotics; Z79.891 Long term (current) use of opiate analgesic; Z87.891 Personal history of nicotine dependence; Z68.36 Body mass index [BMI] 36.0-36.9, adult
CPT/HCPCS: 36415; 85014; 85018; 87081; 88305

== ENCOUNTER 2021-04-24 09:16 | Outpatient (RCR) | payer MEDICARE, OTHER ==
[~2021-04-24 09:16] MED LIST changes: +ACET-2267 PO; +AMLO-251 PO; +BENA40TA5 PO; +CARB200T6 PO; +CHOL200074 PO; +CYAN-23 PO; +IBUP-2185 PO; +ROSU20TA32 PO; +VITA200T5 PO
== END 2021-04-24 10:56 | disposition home or self-care (01) ==
PROVIDERS: ATTEND Nurse Practitioner
DX: M23.611 Other spontaneous disruption of anterior cruciate ligament of right knee (principal); I11.9 Hypertensive heart disease without heart failure

== ENCOUNTER 2022-01-28 01:08 | Emergency (ER) | payer MEDICARE, OTHER ==
[~2022-01-28] VITALS: Ht 182.8 cm; Wt 124.3 kg
[~2022-01-28 01:08] MED LIST changes: +BENA-3 PO; -BENA20TA7 PO; -BENA40TA5 PO; +BENA40TA84 PO; +CYCL10TA25 PO
[2022-01-28] MEDS ORDERED: BENZ100C18 PO (02:08)
[2022-01-28] MEDS ORDERED: D-ME473S11 PO (02:08)
--- NOTE | 2022-01-28 02:08 | ED Cough/URI ---
General Chief Complaint: COVID19 Suspect/Confirmed Stated Complaint: COUGH Nursing Triage Note: PT ARRIVAL TO ER TONIGHT VIA PRIVATE VEHICLE WITH COMPLAINT OF COUGH. PT STATES THAT IT STARTED ABOUT 12 HOURS AGO AND HE WOULD LIKE TO GET SOME SLEEP. PT HAS NO OTHER SYMPTOMS. Source: patient History of Present Illness Date Seen by Provider: Jan 28, 2022 Time Seen by Provider: 01:17 Initial Comments PT ARRIVES VIA POV FROM HOME C/O NON-PRODUCTIVE COUGH X 12 HOURS--STATES HE CANNOT SLEEP DUE TO COUGH PT HAS NOT TAKEN ANYTHING FOR COUGH AT ANY TIME NO CHEST PAIN NO SHORTNESS OF BREATH NO FEVER/SWEATS/CHILLS NO GI SYMPTOMS NO HEADACHE NO BODY ACHES PT STATES HE HAS HAD COVID VACCINE X 3. NO KNOWN SICK CONTACTS. STATES HIS FRIEND FROM [place] CAME DOWN THIS PAST WEEKEND TO VISIT AND BROUGHT HIM TO THE ER. NO HISTORY OF RESPIRATORY PROBLEMS PCP: DR. SAUNDERS Allergies and Home Medications Allergies Coded Allergies: morphine (Verified Adverse Reaction, Mild, CONFUSION, CAN TAKE PERCOCET, 05/14/19) Patient Home Medication List Acetaminophen (Tylenol Extra Strength) 500 Mg Tablet, 1,000 MG PO Q8H PRN for PAIN-MILD (1-4), (Reported) Entered as Reported by: SANDRA KARIMI on 04/10/21 141 Amlodipine Besylate (Amlodipine Besylate) 10 Mg Tablet, 10 MG PO DAILY, (Reported) Entered as Reported by: SANDRA KARIMI on 04/10/21 141 Aspirin (Adult Low Dose Aspirin EC) 81 Mg Tablet.dr 81 MG PO Q48H, (Reported) Entered as Reported by: CAMERON CRAFT on 02/07/18 1023 Benazepril HCl (Benazepril HCl) 40 Mg Tab, 40 MG PO DAILY, (Reported) Entered as Reported by: SANDRA KARIMI on 04/10/21 141 Benzonatate (Tessalon Perles) 100 Mg Capsule, 200 MG PO TID Prescribed by: JEFF PAL on 01/28/22 0208 Carbamazepine (Carbamazepine) 200 Mg Tablet, 200 MG PO BID, (Reported) Entered as Reported by: SANDRA KARIMI on 04/10/21 1416 Cholecalciferol (Vitamin D3) (Vitamin D3) 50 Mcg Capsule, 50 MCG PO DAILY, (Reported) Entered as Reported by: SANDRA KARIMI on 04/10/21 141 Cyanocobalamin (Vitamin B-12) (Vitamin B-12) 1,000 Mcg Capsule, 1,000 MCG PO DA TC, (Reported) Entered as Reported by: SANDRA KARIMI on 04/10/21 141 Meloxicam (Meloxicam) 15 Mg Tablet, 15 MG PO DAILY, (Reported) Entered as Reported by: MACIEL MCWILLIAMS on 11/03/15 0939 Metoprolol Tartrate (Metoprolol Tartrate) 100 Mg Tablet, 100 MG PO BID, (Reported) Entered as Reported by: SANDRA KARIMI on 04/10/21 141 Promethazine/Dextromethorphan (Promethazine-Dm Syrup) 6.25 Mg-15 Mg/5 Ml Syrup, 5 ML PO Q4H Prescribed by: JEFF PAL on 01/28/22 0208 Rosuvastatin Calcium (Rosuvastatin Calcium) 20 Mg Tablet, 20 MG PO HS, (Reported) Entered as Reported by: SANDRA KARIMI on 04/10/21 141 Vitamin E Acid Succinate (Vitamin E) 200 Unit Tablet, 200 UNIT PO DAILY, (Reported) Entered as Reported by: SANDRA KARIMI on 04/10/21 141 Review of Systems Review of Systems Constitutional: no symptoms reported EENTM: no symptoms reported Respiratory: see HPI, cough; No short of breath Cardiovascular: no symptoms reported Gastrointestinal: no symptoms reported Genitourinary: no symptoms reported Musculoskeletal: no symptoms reported Skin: no symptoms reported Psychiatric/Neurological: No Symptoms Reported Hematologic/Lymphatic: No Symptoms Reported Immunological/Allergic: no symptoms reported Past Loyciya-Fyltpb-Rdamvz Hx Patient Social History Tobacco Use?: No Use of E-Cig and/or Vaping dev: No Substance use?: No Alcohol Use?: Yes Alcohol type: Beer, Hard Liquor, Wine Alcohol Frequency: Once in a while Pt feels they are or have been: No Immunizations Up To Date Tetanus Booster (TDap): Less than 5yrs PED Vaccines UTD: Yes Influenza Vaccine Up-to-Date: Yes; Up-to-Date First/Initial COVID19 Vaccinat: August 2020 Second COVID19 Vaccination Jac: September 2020 Third COVID19 Vaccination Date: August 2020 COVID19 Vaccine Entry Level Software Engineer: Moderna Seasonal Allergies Seasonal Allergies: No Past Medical History Surgery/Hospitalization HX: diverticulosis Surgeries: Yes (FX RIB, KIDNEY STONES, prostate cancer) Abdominal, Cardiac, Orthopedic, Prostatectomy Respiratory: Yes Sleep Apnea Currently Using CPAP: Yes Cardiac: Yes Coronary Artery Disease, Heart Attack, High Cholesterol, Hypertension Neurological: No Reproductive Disorders: No Sexually Transmitted Disease: No HIV/AIDS: No Genitourinary: Yes (PROSTATE CANCER) Prostate Problems Gastrointestinal: Yes Gastrointestinal Bleed, Diverticulosis, Polyps Musculoskeletal: Yes Chronic Back Pain Endocrine: No (OBESITY) HEENT: Yes Loss of Vision: Bilateral Hearing Impairment: Hard of Hearing Cancer: Yes Prostate, Melanoma Did You Recieve Any Treatments: Yes What Type of Treatment Did You: Surgical Intervention Psychosocial: No Integumentary: No Blood Disorders: No Adverse Reaction/Blood Tranf: No Family Medical History Hypertension, Stroke COLONOSCOPY 04/11/[address] PERALES: POSTOPERATIVE DIAGNOSES: Diverticulosis and descending colon polyp. PROCEDURE: Colonoscopy with hot biopsy polypectomy x1. Physical Exam Vital Signs - First Documented Capillary Refill : Less Than 3 Seconds Height: 6'0.00" Weight: 270lbs. 0.0oz. 122.308609yw; 37.00 BMI Method:Stated General Appearance: WD/WN, no apparent distress, other (DOES NOT APPEAR ILL OR TO BE IN ANY DISCOMFORT OR DISTRESS) HEENT: PERRL/EOMI, TMs normal, pharynx normal, other (GROWTH ON CONJUNCTIVA OF RIGHT EYE-LATERAL ASPECT) Neck: normal inspection Respiratory: normal breath sounds, no respiratory distress, no accessory muscle use Cardiovascular: regular rate, rhythm, no murmur Gastrointestinal: soft Extremities: normal inspection Neurologic/Psychiatric: no motor/sensory deficits, alert, normal mood/affect, oriented x 3 Skin: normal color, warm/dry Procedures/Interventions Suture Size: 4-0 Progress/Results/Core Measures Suspected Sepsis SIRS Temperature: Pulse: 104 Respiratory Rate: 22 Blood Pressure 196 /107 Mean: 136 Results/Orders Lab Results Laboratory Tests Test 01/28/22 01:20 Range/Units Influenza Type A (RT-PCR) Not Detected Not Detecte Influenza Type B (RT-PCR) Not Detected Not Detecte SARS-CoV-2 RNA (RT-PCR) Detected H Not Detecte My Orders Orders - JEFF PAL DO Covid 19 Inhouse Test (01/28/22 01:16) Influenza A And B By Pcr (01/28/22 01:16) Isolation Central Supply Req (01/28/22 01:16) Chest 1 View, Ap/Pa Only (01/28/22 01:24) Rx-Nirmatrelvir/Ritonavir(Eua) (Rx-Paxlo (01/28/22 02:15) Promethazine/ Codeine Syrup (Phenergan W (01/28/22 02:15) Benzonatate Capsule (Tessalon Perles) (01/28/22 02:15) Medications Given in ED Current Medications Medications Dose Ordered Sig/Mirella Route Start Time Stop Time Status Last Admin Dose Admin Promethazine HCl/ Codeine 5 ml ONCE ONCE PO 01/28/22 02:15 01/28/22 02:16 DC 01/28/22 02:12 5 ML Vital Signs/I&O 01/28/22 01/28/22 01/28/22 01:23 01:23 02:18 Temp 37.3 Pulse 104 97 Resp B/P (MAP) 196/107 (136) 181/103 Pulse Ox 92 94 O2 Delivery Room Air Room Air Room Air Capillary Refill : Less Than 3 Seconds Blood Pressure Mean: 136 Progress Note : Progress Note PLACED IN ISOLATION ROOM PPE WORN AT ALL TIMES COVID AND FLU TESTING DONE DISCUSSED TEST RESULTS AND POSSIBLE TREATMENT OPTIONS PT OPTS TO TAKE ORAL PAXLOVID. PT DOES NOT HAVE ANY CONTRAINDICATIONS. TAKE HOME PACK SENT HOME WITH PT RETURN PRECAUTIONS DISCUSSED WITH PT PT STATES HE WANTS SOMETHING FOR COUGH, HOWEVER, PT DID NOT COUGH DURING ER STAY NO DYSPNEA NO HYPOXIA NO FEVER DURING ER STAY Diagnostic Imaging Comments CXR--NO ACUTE PROCESS, PENDING RADIOLOGIST REVIEW Departure Impression Primary Impression: COVID-19 virus infection Disposition: 01 HOME, SELF-CARE Condition: Stable Departure-Patient Inst. Decision time for Depature: 02:04 Referrals: ADRIÁN SAUNDERS MD (PCP/Family) Primary Care Physician Patient Instructions: COVID-19 Home Care/Discharge, Preventing the Spread of an Infectious Disease, Nirmatrelvir and Ritonavir FDA Fact Sheet Add. Discharge Instructions: TAKE PAXLOVID PRESCRIBED HOME, REST LOTS OF CLEAR LIQUIDS TYLENOL AND MOTRIN NEEDED FOR PAIN OR FEVER QUARANTINE YOURSELF AND ALL HOUSEHOLD AND CLOSE CONTACTS FOR 10 DAYS RETURN TO ER IF YOUR SYMPTOMS WORSEN All discharge instructions reviewed with patient and/or family. Voiced understanding. Scripts Promethazine/Dextromethorphan (Promethazine-Dm Syrup) 6.25 Mg-15 Mg/5 Ml Syrup 5 ML PO Q4H for Cough, #200 ML Prov: JEFF PAL DO 01/28/22 Benzonatate (TESSALON PERLES) 100 Mg Capsule 200 MG PO TID, #60 CAP Prov: JEFF PAL DO 01/28/22 JEFF PAL DO Jan 28, 2022 02:08
[2022-01-28] MEDS ORDERED: BENZONATATE 100 MG (TESSALON) CAPSULE PO SCH (02:15)
[2022-01-28] MEDS ORDERED: RX-NIRMATRELVIR/RITONAVIR (PAXLOVID) #30 TABS PO SCH (02:15)
[2022-01-28] MEDS ORDERED: PROMETHAZINE/ CODEINE SYRUP 5 ML UDC PO ONE (02:15)
[2022-01-28 02:18] VITALS: BP 181/103
--- NOTE | 2022-01-28 07:39 | Diagnostic Imaging Report ---
CHEST 1 VIEW, AP/PA ONLY Indication: Cough Comparison: 09/30/2020 Findings: No focal airspace disease in the visualized lungs. Please note that the posterior lower lobes are poorly evaluated by portable radiography. No pleural effusion or pneumothorax. Normal cardiomediastinal silhouette. Impression: 1. No acute cardiopulmonary process by portable radiography. Dictated by: Dictated on workstation # [id number]
== END 2022-01-28 02:19 | disposition home or self-care (01) ==
LOC: EDUNIT# 01:08 → ER 01:10
DX: U07.1 COVID-19 (principal); H57.89 Other specified disorders of eye and adnexa; G47.30 Sleep apnea, unspecified; E66.9 Obesity, unspecified; Z68.37 Body mass index [BMI] 37.0-37.9, adult; Z99.89 Dependence on other enabling machines and devices
CPT/HCPCS: 71045; 87636

== ENCOUNTER 2022-05-01 23:12 | Inpatient (IN) | payer MEDICARE, OTHER ==
[~2022-05-01] VITALS: Ht 182.9 cm; Wt 119.5 kg
[~2022-05-01 23:12] MED LIST changes: +BENZ100C18 PO; +D-ME473S11 PO
[2022-05-01] MEDS ORDERED: LACTATED RINGERS 1,000 ML IV ONE (23:30)
[2022-05-01 23:56] LABS: BASOPHILS # (AUTO) 0.1 10^3/uL (0.0-0.1); BASOPHILS % (AUTO) 1 % (0-10); EOSINOPHILS # (AUTO) 0.3 10^3/uL (0.0-0.3); EOSINOPHILS % (AUTO) 2 % (0-10); HEMATOCRIT 42 % (40-54); HEMOGLOBIN 14.8 g/dL (13.3-17.7); LYMPHOCYTES # (AUTO) 1.6 10^3/uL (1.0-4.0); LYMPHOCYTES % (AUTO) 13 % (12-44); MEAN CORPUSCULAR HEMOGLOBIN 34 pg (25-34); MEAN CORPUSCULAR HGB CONC 35 g/dL (32-36); MEAN CORPUSCULAR VOLUME 97 fL (80-99); MEAN PLATELET VOLUME 9.5 fL (9.0-12.2); MONOCYTES # (AUTO) 1.6 10^3/uL (0.0-1.0); MONOCYTES % (AUTO) 13 % (0-12); NEUTROPHILS # (AUTO) 8.6 10^3/uL (1.8-7.8); NEUTROPHILS % (AUTO) 70 % (42-75); PLATELET COUNT 256 10^3/uL (130-400); WHITE BLOOD COUNT 12.3 10^3/uL (4.3-11.0)
[2022-05-02 00:06] LABS: ALBUMIN 4.1 GM/DL (3.2-4.5); POTASSIUM 3.5 MMOL/L (3.6-5.0)
[2022-05-02 00:07] LABS: CALCIUM 8.4 MG/DL (8.5-10.1)
[2022-05-02 00:10] LABS: BILIRUBIN,TOTAL 0.9 MG/DL (0.1-1.0)
[2022-05-02 00:12] LABS: CREATININE SERUM 1.1 MG/DL (0.60-1.30)
[2022-05-02 00:15] LABS: MAGNESIUM 1.9 MG/DL (1.6-2.4)
[2022-05-02 00:16] LABS: ERYTHROCYTE SEDIMENTATION RATE 10 MM/HR (0-30)
[2022-05-02 00:28] LABS: CLARITY,URINE CLEAR; COLOR,URINE YELLOW; GLUCOSE, URINE (UA) NEGATIVE (NEGATIVE); KETONES,URINE TRACE (NEGATIVE); LEUKOCYTE ESTERASE ,URINE NEGATIVE (NEGATIVE); NITRITE,URINE NEGATIVE (NEGATIVE); PROTEIN,URINE 1+ (NEGATIVE)
[2022-05-02] MEDS ORDERED: IOHEXOL 350 MG/ML 100 ML (OMNIPAQUE 350) VIAL IV ONE (00:30)
[2022-05-02] MEDS ORDERED: NS 100 ML (IVPB) BAG IV ONE (00:30)
[2022-05-02] MEDS ORDERED: HOLD METFORMIN - RECEIVED CONTRAST 20 ML VIAL IV SCH (00:30)
[2022-05-02 00:35] LABS: BACTERIA,URINE NEGATIVE /HPF; BILIRUBIN,URINE 2+ (NEGATIVE)
--- NOTE | 2022-05-02 02:33 | ED GI ---
General Chief Complaint: Abdominal/GI Problems Stated Complaint: UNCONTROLLABLE BOWELS Nursing Triage Note: PT ARRIVAL TO ER VIA PRIVATE VEHICLE WITH FAMILY WITH COMPLAINT OF DARK DIARRHEA X2 DAYS. PT STATES THAT HE IS HAVING NO OTHER SYMPTOMS. PT STATES THAT THE DIARRHEA HAD SUBSIDED EARLIER TODAY, BUT THEN STARTED AGAIN TONIGHT. PT HAS HISTORY OF THIS BEFORE. HX OF DIVERTICULITIS. Source of Information: Patient (PT IS LIMITED HISTORIAN), Other (DAUGHTER GIVES MOST OF HISTORY) History of Present Illness Date Seen by Provider: May 01, 2022 Time Seen by Provider: 23:25 Initial Comments PT ARRIVES VIA POV FROM HOME WITH DAUGHTER PT BEGAN HAVING DIFFUSE ABDOMINAL PAIN AND DIARRHEA ON TUESDAY/YESTERDAY HAD TOO MANY TO COUNT STOOLS ON TUESDAY DRANK ALOT OF PEPTO BISMOL, AND BY THIS MORNING HE WAS FEELING BETTER HE WENT TO [place] TODAY, THEN WHEN HE GOT HOME, THE DIARRHEA RETURNED HAS HAD 3 EPISODES TONIGHT, AND HAS BEEN INCONTINENT OF STOOL TONIGHT NO ABDOMINAL PAIN AT ANY TIME TODAY NO NAUSEA/VOMITING AT ANY TIME NO FEVER PT IS URINATING NORMALLY AND WITHOUT ANY DIFFICULTY OR BURNING, ETC. STOOLS HAVE BEEN BLACK SINCE TAKING THE PEPTO BISMOL, BUT NO TARRY OR BLOODY STOOLS PT HAS HAD THIS BEFORE WITH DIVERTICULITIS, WHICH HE HAS HAD MULTIPLE TIMES. NO KNOWN SICK CONTACTS NO SUSPICIOUS FOODS NO RECENT TRAVEL NO RECENT ANTIBIOTICS. PT DOES DRINK ON A REGULAR BASIS. PT HAS HAD MODERNA COVID VACCINE X 2--IN EARLY 2020. PCP: DR. SAUNDERS Allergies and Home Medications Allergies Coded Allergies: morphine (Verified Adverse Reaction, Mild, CONFUSION, CAN TAKE PERCOCET, 05/14/19) Patient Home Medication List Home Medication List Reviewed: Yes Acetaminophen (Tylenol Extra Strength) 500 Mg Tablet, 1,000 MG PO Q8H PRN for PAIN-MILD (1-4), (Reported) Entered as Reported by: SANDRA KARIMI on 04/10/21 1416 Amlodipine Besylate (Amlodipine Besylate) 10 Mg Tablet, 10 MG PO DAILY, (Reported) Entered as Reported by: SANDRA KARIMI on 04/10/21 1416 Aspirin (Adult Low Dose Aspirin EC) 81 Mg Tablet.dr 81 MG PO Q48H, (Reported) Entered as Reported by: CAMERON CRAFT on 02/07/18 1023 Benazepril HCl (Benazepril HCl) 40 Mg Tab, 40 MG PO DAILY, (Reported) Entered as Reported by: SANDRA KARIMI on 04/10/211415 Benzonatate (Tessalon Perles) 100 Mg Capsule, 200 MG PO TID Prescribed by: JEFF PAL on 01/28/22 020 Carbamazepine (Carbamazepine) 200 Mg Tablet, 200 MG PO BID, (Reported) Entered as Reported by: SANDRA KARIMI on 04/10/211415 Cholecalciferol (Vitamin D3) (Vitamin D3) 50 Mcg Capsule, 50 MCG PO DAILY, (Reported) Entered as Reported by: SANDRA KARIMI on 04/10/211415 Cyanocobalamin (Vitamin B-12) (Vitamin B-12) 1,000 Mcg Capsule, 1,000 MCG PO DAILY, (Reported) Entered as Reported by: SANDRA KARIMI on 04/10/211415 Meloxicam (Meloxicam) 15 Mg Tablet, 15 MG PO DAILY, (Reported) Entered as Reported by: MACIEL MCWILLIAMS on 11/03/15 0939 Metoprolol Tartrate (Metoprolol Tartrate) 100 Mg Tablet, 100 MG PO BID, (Reported) Entered as Reported by: SANDRA KARIMI on 04/10/211415 Promethazine/Dextromethorphan (Promethazine-Dm Syrup) 6.25 Mg-15 Mg/5 Ml Syrup, 5 ML PO Q4H Prescribed by: JEFF PAL on 01/28/22 020 Rosuvastatin Calcium (Rosuvastatin Calcium) 20 Mg Tablet, 20 MG PO HS, (Reported) Entered as Reported by: SANDRA KARIMI on 04/10/211415 Vitamin E Acid Succinate (Vitamin E) 200 Unit Tablet, 200 UNIT PO DAILY, (Reported) Entered as Reported by: SANDRA KARIMI on 04/10/211415 Review of Systems Review of Systems Constitutional: no symptoms reported; No chills, No diaphoresis, No dizziness, No fever, No malaise, No weakness EENTM: No Symptoms Reported Respiratory: No Symptoms Reported Cardiovascular: No Symptoms Reported Gastrointestinal: See HPI, Abdominal Pain, Diarrhea; Denies Nausea, Denies Poor Appetite, Denies Vomiting Genitourinary: No Symptoms Reported Musculoskeletal: no symptoms reported Skin: no symptoms reported Psychiatric/Neurological: No Symptoms Reported Endocrine: No Symptoms Reported Hematologic/Lymphatic: No Symptoms Reported Past Bvmsazb-Ifyaav-Ebdbwu Hx Patient Social History Tobacco Use?: No Use of E-Cig and/or Vaping dev: No Substance use?: No Alcohol Use?: Yes Alcohol type: Beer, Hard Liquor Alcohol Frequency: Couple times a week Pt feels they are or have been: No Immunizations Up To Date Tetanus Booster (TDap): Less than 5yrs PED Vaccines UTD: Yes Influenza Vaccine Up-to-Date: No; Not Current First/Initial COVID19 Vaccinat: August 2020 Second COVID19 Vaccination Jac: September 2020 Third COVID19 Vaccination Date: August 2020 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: [employer] Seasonal Allergies Seasonal Allergies: No Past Medical History Surgery/Hospitalization HX: diverticulosis Surgeries: Yes (FX RIB, KIDNEY STONES, prostate cancer;AORTO-BI ILIAC STENTS;) Abdominal, Cardiac, Orthopedic, Prostatectomy, Renal, Vascular Surgery Respiratory: Yes Sleep Apnea Currently Using CPAP: Yes Cardiac: Yes (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) Aneurysm, Coronary Artery Disease, Heart Attack, High Cholesterol, Hypertension, Peripheral Vascular Neurological: No Reproductive Disorders: No Sexually Transmitted Disease: No HIV/AIDS: No Genitourinary: Yes (PROSTATE CANCER-S/P PROSTATECTOMY) Prostate Problems, Kidney Stones Gastrointestinal: Yes Gastrointestinal Bleed, Diverticulosis, Polyps Musculoskeletal: Yes Chronic Back Pain Endocrine: No (OBESITY) HEENT: Yes Loss of Vision: Bilateral Hearing Impairment: Hard of Hearing Cancer: Yes Prostate, Melanoma Did You Recieve Any Treatments: Yes What Type of Treatment Did You: Surgical Intervention Psychosocial: No Integumentary: No Blood Disorders: No Adverse Reaction/Blood Tranf: No Family Medical History Hypertension, Stroke SOCIAL HISTORY: -SMOKED 1 PPD FROM AGE 10, QUIT AT AGE 73 -DRUGS-DENIES USE -ETOH--DRINKS BEER, HARD, LIQUOR A FEW TIMES A MONTH PAST SURGICAL HISTORY: -AAA REPAIR WITH STENTS -CARDIAC CATH WITH ANGIOPLASTY -REPAIR OF INTESTINAL INTUSSCEPTION AT AGE 1 -PROSTATECTOMY 1996 -KIDNEY STONE REMOVAL -ORTHOPEDIC SURGERY -REMOVAL OF MELANOMA COLONOSCOPY 04/11/[address] PERALES: POSTOPERATIVE DIAGNOSES: Diverticulosis and descending colon polyp. PROCEDURE: Colonoscopy with hot biopsy polypectomy x1. Physical Exam Vital Signs Vital Signs - First Documented 05/01/22 23:24 Temp 36.9 Pulse 75 Resp 22 B/P (MAP) 136/72 (93) Pulse Ox 95 O2 Delivery Room Air Capillary Refill : Less Than 3 Seconds Height/Weight/BMI Height: 6'0.00" Weight: 270lbs. 0.0oz. 122.711605ti; 37.00 BMI Method:Stated General Appearance: WD/WN, no apparent distress, obese, other (DOES NOT APPEAR ILL OR TO BE IN ANY DISCOMFORT OR DISTRESS. ) HEENT: PERRL/EOMI, other (LARGE GROWTH TO RIGHT LATERAL CONJUNCTIVA) Respiratory: normal breath sounds, no respiratory distress, no accessory muscle use Cardiovascular: regular rate, rhythm, no murmur Peripheral Pulses: 0 Carotid (R), 0 Carotid (L), 0 Femoral (R), 0 Femoral (L), 0 Dorsalis Pedis (R), 0 Left Dors-Pedis (L), 0 Radial Pulses (R), 0 Radial Pulses (L) Gastrointestinal: normal bowel sounds, non tender, soft Extremities: normal capillary refill, pedal edema (2+ EDEMA BILATERALLY, WITH CHRONIC VENOUS STASIS CHANGES TO BILATERAL LOWER LEGS. ) Procedures/Interventions Suture Size: 4-0 Progress/Results/Core Measures Results/Orders Lab Results Laboratory Tests Test 05/01/22 23:37 05/01/22 23:41 05/02/22 00:17 Range/Units Influenza Type A (RT-PCR) Not Detected Not Detecte Influenza Type B (RT-PCR) Not Detected Not Detecte SARS-CoV-2 RNA (RT-PCR) Not Detected Not Detecte White Blood Count 12.3 H 4.3-11.0 10^3/uL Red Blood Count 4.31 4.30-5.52 10^6/uL Hemoglobin 14.8 13.3-17.7 g/dL Hematocrit 42 40-54 % Mean Corpuscular Volume 97 80-99 fL Mean Corpuscular Hemoglobin 34 25-34 pg Mean Corpuscular Hemoglobin Concent 35 32-36 g/dL Red Cell Distribution Width 13.5 10.0-14.5 % Platelet Count 256 130-400 10^3/uL Mean Platelet Volume 9.5 9.0-12.2 fL Immature Granulocyte % (Auto) 0 % Neutrophils (%) (Auto) 70 42-75 % Lymphocytes (%) (Auto) 13 12-44 % Monocytes (%) (Auto) 13 H 0-12 % Eosinophils (%) (Auto) 2 0-10 % Basophils (%) (Auto) 1 0-10 % Neutrophils # (Auto) 8.6 H 1.8-7.8 10^3/uL Lymphocytes # (Auto) 1.6 1.0-4.0 10^3/uL Monocytes # (Auto) 1.6 H 0.0-1.0 10^3/uL Eosinophils # (Auto) 0.3 0.0-0.3 10^3/uL Basophils # (Auto) 0.1 0.0-0.1 10^3/uL Immature Granulocyte # (Auto) 0.0 0.0-0.1 10^3/uL Erythrocyte Sedimentation Rate 10 0-30 MM/HR Sodium Level 140 135-145 MMOL/L Potassium Level 3.5 L 3.6-5.0 MMOL/L Chloride Level 104 98-107 MMOL/L Carbon Dioxide Level 22 21-32 MMOL/L Anion Gap 14 5-14 MMOL/L Blood Urea Nitrogen 29 H 7-18 MG/DL Creatinine 1.10 0.60-1.30 MG/DL Estimat Glomerular Filtration Rate 67 BUN/Creatinine Ratio 26 Glucose Level 134 H 70-105 MG/DL Calcium Level 8.4 L 8.5-10.1 MG/DL Corrected Calcium 8.3 L 8.5-10.1 MG/DL Magnesium Level 1.9 1.6-2.4 MG/DL Total Bilirubin 0.9 0.1-1.0 MG/DL Aspartate Amino Transf (AST/SGOT) 21 5-34 U/L Alanine Aminotransferase (ALT/SGPT) 17 0-55 U/L Alkaline Phosphatase 71 40-136 U/L C-Reactive Protein High Sensitivity 10.82 H 0.00-0.50 MG/DL Total Protein 7.0 6.4-8.2 GM/DL Albumin 4.1 3.2-4.5 GM/DL Amylase Level 29 25-125 U/L Urine Color YELLOW Urine Clarity CLEAR Urine pH 5.0 5-9 Urine Specific [place] >=1.030 1.016-1.022 Urine Protein 1+ H NEGATIVE Urine Glucose (UA) NEGATIVE NEGATIVE Urine Ketones TRACE H NEGATIVE Urine Nitrite NEGATIVE NEGATIVE Urine Bilirubin 2+ H NEGATIVE Urine Urobilinogen 0.2 < = 1.0 MG/DL Urine Leukocyte Esterase NEGATIVE NEGATIVE Urine RBC (Auto) NEGATIVE NEGATIVE Urine RBC NONE /HPF Urine WBC NONE /HPF Urine Crystals NONE /LPF Urine Bacteria NEGATIVE /HPF Urine Casts PRESENT /LPF Urine Hyaline Casts 5-10 H /LPF Urine Mucus SMALL H /LPF Urine Culture Indicated NO Micro Results Microbiology My Orders Orders - JEFF PAL DO Ed Iv/Invasive Line Start (05/01/22:) Monitor-Rhythm Ecg Trace Only (05/01/22) Amylase (05/01/22) Cbc With Automated Diff (05/01/22) Comprehensive Metabolic Panel (05/01/22) Hs C Reactive Protein (05/01/22) Magnesium (05/01/22) Ua Culture If Indicated (05/01/22) Stool Culture (05/01/22) Erythrocyte Sedimentation Rate (05/01/22:) Ed Iv/Invasive Line Start (05/01/22) Lactated Ringers (Lr 1000 Ml Iv Solution (05/01/22 23:30) Covid 19 Inhouse Test (05/01/22:) Influenza A And B By Pcr (05/01/22) Isolation Central Supply Req (05/01/22:) Ct Abdomen/Pelvis W (05/02/22 00:19) Iohexol Injection (Omnipaque 350 Mg/Ml 1 (05/02/22 00:30) Received Contrast (Hold Metformin- Contr (05/02/22 00:30) Ns (Ivpb) (Sodium Chloride 0.9% Ivpb Bag (05/02/22 00:30) Fecal Wbc (05/02/22 00:17) Medications Given in ED Current Medications Medications Dose Ordered Sig/Mirella Route Start Time Stop Time Status Last Admin Dose Admin Iohexol 100 ml ONCE ONCE IV 05/02/22 00:30 05/02/22 00:31 DC 05/02/22 00:39 100 ML Lactated Ringer's 1,000 ml @ 0 mls/hr Q0M ONCE IV 05/01/22 23:30 05/01/22 23:31 DC 05/01/22 23:44 999 MLS/HR Sodium Chloride 100 ml ONCE ONCE IV 05/02/22 00:30 05/02/22 00:31 DC 05/02/22 00:39 100 ML Vital Signs/I&O 05/01/22 23:24 Temp 36.9 Pulse 75 Resp 22 B/P (MAP) 136/72 (93) Pulse Ox 95 O2 Delivery Room Air Blood Pressure Mean: 93 Progress Progress Note : Progress Note MARKED DELAY IN OBTAINING CT REPORT. 0230--STILL NO RADIOLOGIST REPORT. SPOKE WITH [employer], SHE WILL CALL [facility], AND IF NECESSARY, WILL CALL [facility] NO DETERIORATION IN PT'S CONDITION DURING ER STAY PT DID HAVE A FEW DIARRHEA STOOLS , BUT NO INCONTINENCE DURING ER STAY NO ABDOMINAL PAIN DURING ER STAY. Diagnostic Imaging Comments CT ABDOMEN/PELVIS--PER [facility] VIA FAX AT [phone] -NO ACUTE PROCESS -ADDITIONAL NON-ACUTE FINDINGS--SEE DETAILED REPORT FOR THESE. Departure Communication (Admissions) 0120--SPOKE WITH DR. CASTELLANOS, ACCEPTS PT FOR ADMIT. Impression Primary Impression: Diarrhea Additional Impression: Dehydration Disposition: ADMITTED INPATIENT Condition: Stable Admissions Decision to Admit Reason: Admit from ER (General) Decision to Admit/Date: May 02, 2022 Time/Decision to Admit Time: 01:20 Departure-Patient Inst. Referrals: ADRIÁN SAUNDERS MD (PCP/Family) Primary Care Physician JEFF PAL DO May 02, 2022 02:32
[2022-05-02 04:20] VITALS: BP 131/61
[2022-05-02] MEDS ORDERED: D5 NS W/KCL 20 MEQ/L 1,000 ML IV ONE (04:29)
[2022-05-02] MEDS ORDERED: D5 1/2 NS W/KCL 20 MEQ/L 1,000 ML IV SCH (06:15)
[2022-05-02] MEDS ORDERED: ONDANSETRON 4 MG/2 ML (SDV) Z0FRAN IV PRN (06:15)
[2022-05-02] MEDS ORDERED: fentaNYL INJ 100 MCG/2 ML AMP IV PRN (06:15)
--- NOTE | 2022-05-02 06:47 | Diagnostic Imaging Report ---
EXAMINATION: CT abdomen and pelvis with intravenous contrast. TECHNIQUE: Multiple contiguous axial images were obtained through the abdomen and pelvis after the uneventful administration of intravenous contrast. All CT scans use one or more of the following dose optimizing techniques: automated exposure control, MA and/or KvP adjustment based on patient size and exam type or iterative reconstruction. HISTORY: Diarrhea and abdominal pain. COMPARISON: 09/30/2020 FINDINGS: Limited views of the lower thorax show mild atelectasis in the lung bases. Coronary arteries are calcified. There is an unchanged calcified lesion in the right hemiliver. No suspicious liver lesions. There is no biliary ductal dilation. Gallbladder is normal. There are few calcifications in the pancreatic head which may represent sequela of prior pancreatitis, unchanged from prior exam. Spleen is normal. Adrenal glands are normal. There is a nonobstructing stone in the left kidney. There are parapelvic cysts on the left. No suspicious renal lesions. There is no hydronephrosis. Urinary bladder is normal. Prostate has been resected. Bowel is normal in caliber without obstruction or inflammation. There is diverticulosis without diverticulitis. No free fluid or air. No abdominal or pelvic lymphadenopathy. There has been an endovascular repair of an infrarenal abdominal aortic aneurysm. The excluded sac measures 5.5 x 5.9 cm, previously 5.3 x 5.7 cm. There are no suspicious osseus lesions. IMPRESSION: 1. No acute abnormality in the abdomen or pelvis. 2. Infrarenal abdominal aortic aneurysm status post endovascular repair with mild increase in size of the excluded sac compared to prior study. Continued CT angiographic surveillance of the stent graft is recommended. Dictated by: Dictated on workstation # [id number]
[2022-05-02 07:08] VITALS: BP 163/84
[2022-05-02] MEDS: LACTOBACILLUS ACIDOPHILUS (PROBIOTIC) CAPSULE PO SCH ×4 (07:30→20:34)
[2022-05-02] MEDS ORDERED: HYOSCYAMINE 0.125 MG (LEVSIN) TAB PO PRN (11:00)
[2022-05-02] MEDS ORDERED: KCL 20 MEQ TAB (K-DUR) PO NR (11:00)
[2022-05-02] MEDS ORDERED: meTOproloL SUCCINATE 50 MG (TOPROL XL) TAB PO NR (11:00)
--- NOTE | 2022-05-02 11:03 | History & Physical ---
History of Present Illness History of Present Illness Reason for visit/HPI This is a 81 year old male who presented to the emergency room with diarrhea for 2 days. He reported the diarrhea was black but he has been taking pepto bismol as well. He did have some abdominal cramping but no nausea or vomiting. He has a history of diverticulitis and did have a colonoscopy last year. His CT scan showed no acute diverticulitis but he will be admitted for IVFs and further workup and observation. Date of Admission May 02, 2022 at 01:20 Date Seen by a Provider: May 02, 2022 Time Seen by a Provider: 10:57 I consulted on this patient on 05/02/22 10:57 Attending Physician Beatriz Pack MD Admitting Physician Admitting Physician: Omid Van DO Attending Physician: Beatriz Pack MD Consult Allergies and Home Medications Allergies Coded Allergies: morphine (Verified Adverse Reaction, Mild, CONFUSION, CAN TAKE PERCOCET, 05/14/19) Patient Home Medication List Home Medication List Reviewed: Yes Acetaminophen (Tylenol Extra Strength) 500 Mg Tablet, 1,000 MG PO Q8H PRN for PAIN-MILD (1-4), (Reported) Entered as Reported by: SANDRA KARIMI on 04/10/21 141 Amlodipine Besylate (Amlodipine Besylate) 10 Mg Tablet, 10 MG PO DAILY, (Reported) Entered as Reported by: SANDRA KARIMI on 04/10/21 141 Aspirin (Adult Low Dose Aspirin EC) 81 Mg Tablet.dr, 81 MG PO Q48H, (Reported) Entered as Reported by: CAMERON CRAFT on 02/07/18 1023 Benazepril HCl (Benazepril HCl) 40 Mg Tab, 40 MG PO DAILY, (Reported) Entered as Reported by: SANDRA KARIMI on 04/10/21 1416 Benzonatate (Tessalon Perles) 100 Mg Capsule, 200 MG PO TID Prescribed by: JEFF PAL on 01/28/22 0208 Carbamazepine (Carbamazepine) 200 Mg Tablet, 200 MG PO BID, (Reported) Entered as Reported by: SANDRA KARIMI on 04/10/21 1416 Cholecalciferol (Vitamin D3) (Vitamin D3) 50 Mcg Capsule, 50 MCG PO DAILY, (Reported) Entered as Reported by: SANDRA KARIMI on 04/10/21 1416 Cyanocobalamin (Vitamin B-12) (Vitamin B-12) 1,000 Mcg Capsule, 1,000 MCG PO DAILY, (Reported) Entered as Reported by: SANDRA KARIMI on 04/10/21 141 Meloxicam (Meloxicam) 15 Mg Tablet, 15 MG PO DAILY, (Reported) Entered as Reported by: MACIEL MCWILLIAMS on 11/03/15 0939 Metoprolol Tartrate (Metoprolol Tartrate) 100 Mg Tablet, 100 MG PO BID, (Reported) Entered as Reported by: SANDRA KARIMI on 04/10/21 141 Promethazine/Dextromethorphan (Promethazine-Dm Syrup) 6.25 Mg-15 Mg/5 Ml Syrup, 5 ML PO Q4H Prescribed by: JEFF PAL on 01/28/22 0208 Rosuvastatin Calcium (Rosuvastatin Calcium) 20 Mg Tablet, 20 MG PO HS, (Reported) Entered as Reported by: SANDRA KARIIM on 04/10/21 141 Vitamin E Acid Succinate (Vitamin E) 200 Unit Tablet, 200 UNIT PO DAILY, (Reported) Entered as Reported by: SANDRA KARIMI on 04/10/21 141 Past Czdyrxl-Hrkvkt-Pgyqhy Hx Patient Social History Employed/Student: retired Tobacco Use?: Yes Tobacco type used: Cigarettes Smoking Status: Former Smoker Smokeless type used: Sticks Smokeless Tobacco Frequency: Never a User Use of E-Cig and/or Vaping dev: No Substance use?: No Alcohol Use?: Yes Alcohol type: Hard Liquor Alcohol Frequency: Several times a month Pt feels they are or have been: No Immunizations Up To Date Date of Influenza Vaccine: May 09, 2017 First/Initial COVID19 Vaccinat: August 2020 Second COVID19 Vaccination Jac: September 2020 Tetanus Booster (TDap): Unknown Hepatitis A: No Hepatitis B: No PED Vaccines UTD: Yes Date of Pneumonia Vaccine: May 10, 2016 Seasonal Allergies Seasonal Allergies: No Current Status Advance Directives: Yes Advance Directive Location: Copy from prev record Communicates: Verbally Primary Language: Kyrgyz Preferred Spoken Language: Kyrgyz Is interpretation needed?: No Sensory deficits: Vision impairment Implanted or Applied Medical D: Stents Past Medical History Surgeries: Abdominal, Cardiac, Orthopedic, Prostatectomy, Renal, Vascular Surgery Sleep Apnea Currently Using CPAP: Yes Aneurysm, Coronary Artery Disease, Heart Attack, High Cholesterol, Hypertension, Peripheral Vascular Sexually Transmitted Disease: No HIV/AIDS: No Prostate Problems, Kidney Stones Gastrointestinal Bleed, Diverticulosis, Polyps Chronic Back Pain Loss of Vision: Bilateral Hearing Impairment: Hard of Hearing Prostate, Melanoma Did You Recieve Any Treatments: Yes What Type of Treatment Did You: Surgical Intervention Blood Disorders: No Adverse Reaction/Blood Tranf: No Family Medical History Hypertension, Stroke SOCIAL HISTORY: -SMOKED 1 PPD FROM AGE 10, QUIT AT AGE 73 -DRUGS-DENIES USE -ETOH--DRINKS BEER, HARD, LIQUOR A FEW TIMES A MONTH PAST SURGICAL HISTORY: -AAA REPAIR WITH STENTS -CARDIAC CATH WITH ANGIOPLASTY -REPAIR OF INTESTINAL INTUSSCEPTION AT AGE 1 -PROSTATECTOMY 1996 -KIDNEY STONE REMOVAL -ORTHOPEDIC SURGERY -REMOVAL OF MELANOMA COLONOSCOPY 04/11/[address] PERALES: POSTOPERATIVE DIAGNOSES: Diverticulosis and descending colon polyp. PROCEDURE: Colonoscopy with hot biopsy polypectomy x1. Review of Systems Constitutional: weakness EENTM: No see HPI, No no symptoms reported, No ear discharge, No hearing loss, No ear pain, No blurred vision, No double vision, No eye pain, No tearing, No vision loss, No dental problems, No hoarseness, No mouth pain, No mouth swelling, No epistaxis, No nose congestion, No nose pain, No throat pain, No throat swelling, No other Respiratory: No no symptoms reported, No see HPI, No cough, No dyspnea on exertion, No hemoptysis, No orthopnea, No phlegm, No short of breath, No stridor, No wheezing, No other Cardiovascular: No no symptoms reported, No see HPI, No chest pain, No edema, No Hx of Intervention, No palpitations, No syncope, No vascular heart diseas, No other Gastrointestinal: diarrhea Genitourinary: No no symptoms reported, No see HPI, No decreased output, No discharge, No dysuria, No frequency, No hematuria, No hesitancy, No incontinence, No nocturia, No pain, No other Musculoskeletal: No no symptoms reported, No see HPI, No back pain, No gout, No joint pain, No joint swelling, No muscle pain, No muscle stiffness, No muscle cramps, No muscle twitching, No muscle weakness, No neck pain, No other Skin: No no symptoms reported, No see HPI, No change in color, No change in hair/nails, No dryness, No hx of skin cancer, No lesions, No lumps, No pruritus, No rash, No other Physical Exam Vital Signs Vital Signs - First Documented 05/01/22 05/02/22 23:24 07:30 Temp 36.9 Pulse 75 Resp 22 B/P (MAP) 136/72 (93) Pulse Ox 95 O2 Delivery Room Air O2 Flow Rate 0.00 Capillary Refill : Less Than 3 Seconds Height, Weight, BMI Height: 6'0.00" Weight: 270lbs. 0.0oz. 122.026261zf; 35.72 BMI Method:Stated General Appearance: No Apparent Distress HEENT: Pharynx Normal Neck: Supple Respiratory: Lungs Clear Cardiovascular: Regular Rate, Rhythm Gastrointestinal: Non Tender, Soft, Abnormal Bowel Sounds (hyperactive) Back: No CVA Tenderness Extremity: No Calf Tenderness, No Pedal Edema Neurologic/Psychiatric: Alert, Oriented x3 Skin: Warm/Dry Comments Laboratory Tests 05/01/22 23:37: Influenza Type A (RT-PCR) Not Detected, Influenza Type B (RT-PCR) Not Detected, SARS-CoV-2 RNA (RT-PCR) Not Detected 05/01/22 23:41: White Blood Count 12.3H, Red Blood Count 4.31, Hemoglobin 14.8, Hematocrit 42, Mean Corpuscular Volume 97, Mean Corpuscular Hemoglobin 34, Mean Corpuscular Hemoglobin Concent 35, Red Cell Distribution Width 13.5, Platelet Count 256, Mean Platelet Volume 9.5, Immature Granulocyte % (Auto) 0, Neutrophils (%) (Auto) 70, Lymphocytes (%) (Auto) 13, Monocytes (%) (Auto) 13H, Eosinophils (%) (Auto) 2, Basophils (%) (Auto) 1, Neutrophils # (Auto) 8.6H, Lymphocytes # (Auto) 1.6, Monocytes # (Auto) 1.6H, Eosinophils # (Auto) 0.3, Basophils # (Auto) 0.1, Immature Granulocyte # (Auto) 0.0, Erythrocyte Sedimentation Rate 10, Sodium Level 140, Potassium Level 3.5L, Chloride Level 104, Carbon Dioxide Level 22, Anion Gap 14, Blood Urea Nitrogen 29H, Creatinine 1.10, Estimat Glomerular Filtration Rate 67, BUN/Creatinine Ratio 26, Glucose Level 134H, Calcium Level 8.4L, Corrected Calcium 8.3L, Magnesium Level 1.9, Total Bilirubin 0.9, Aspartate Amino Transf (AST/SGOT) 21, Alanine Aminotransferase (ALT/SGPT) 17, Alkaline Phosphatase 71, C-Reactive Protein High Sensitivity 10.82H, Total Protein 7.0, Albumin 4.1, Amylase Level 29 05/02/22 00:17: Urine Color YELLOW, Urine Clarity CLEAR, Urine pH 5.0, Urine Specific [place] >=1.030, Urine Protein 1+H, Urine Glucose (UA) NEGATIVE, Urine Ketones TRACEH, Urine Nitrite NEGATIVE, Urine Bilirubin 2+H, Urine Urobilinogen 0.2, Urine Leukocyte Esterase NEGATIVE, Urine RBC (Auto) NEGATIVE, Urine RBC NONE, Urine WBC NONE, Urine Crystals NONE, Urine Bacteria NEGATIVE, Urine Casts PRESENT, Urine Hyaline Casts 5-10H, Urine Mucus SMALLH, Urine Culture Indicated NO Microbiology 05/02/22 Fecal Leukocyte Stain - Final, Complete Assessment/Plan Assessment and Plan 1. Diarrhea/Enteritis--admit for IVFs, clear liquids, will check hemoccult, probiotic started, add levsin 2. Hypertension--start metoprolol until home meds reconciled 3. History of Diverticulitis--no evidence of acute diverticulitis on CT scan and no pain on palpation 4. Hypokalemia--replace potassium Admission Diagnosis Admission Status: Inpatient Order (span 2 midnights) Reason for Inpatient Admission: Will need IVFs and further workup OMID VAN DO May 02, 2022 11:03
[2022-05-02] MEDS: 1/2 NS W/KCL 20 MEQ/L 1,000 ML IV SCH ×2 (11:19→21:05)
[2022-05-02 11:42] VITALS: BP 155/67
[2022-05-02 15:26] VITALS: BP 157/81
[2022-05-02 19:37] VITALS: BP 179/84
[2022-05-03 00:12] VITALS: BP 142/84
[2022-05-03] MEDS: 1/2 NS W/KCL 20 MEQ/L 1,000 ML IV SCH (00:12)
[2022-05-03 05:27] LABS: BASOPHILS # (AUTO) 0.1 10^3/uL (0.0-0.1); BASOPHILS % (AUTO) 1 % (0-10); EOSINOPHILS # (AUTO) 0.3 10^3/uL (0.0-0.3); EOSINOPHILS % (AUTO) 4 % (0-10); HEMATOCRIT 40 % (40-54); HEMOGLOBIN 13.6 g/dL (13.3-17.7); LYMPHOCYTES # (AUTO) 1.6 10^3/uL (1.0-4.0); LYMPHOCYTES % (AUTO) 27 % (12-44); MEAN CORPUSCULAR HEMOGLOBIN 34 pg (25-34); MEAN CORPUSCULAR HGB CONC 34 g/dL (32-36); MEAN CORPUSCULAR VOLUME 100 fL (80-99); MEAN PLATELET VOLUME 9.5 fL (9.0-12.2); MONOCYTES # (AUTO) 0.7 10^3/uL (0.0-1.0); MONOCYTES % (AUTO) 11 % (0-12); NEUTROPHILS # (AUTO) 3.3 10^3/uL (1.8-7.8); NEUTROPHILS % (AUTO) 56 % (42-75); PLATELET COUNT 186 10^3/uL (130-400)
[2022-05-03 05:48] LABS: CALCIUM 8.5 MG/DL (8.5-10.1); CREATININE SERUM 0.73 MG/DL (0.60-1.30); POTASSIUM 3.4 MMOL/L (3.6-5.0)
[2022-05-03] MEDS: LACTOBACILLUS ACIDOPHILUS (PROBIOTIC) CAPSULE PO SCH ×2 (07:28→12:28)
[2022-05-03 07:39] LABS: ALBUMIN 3.5 GM/DL (3.2-4.5)
[2022-05-03 07:43] LABS: BILIRUBIN,TOTAL 0.5 MG/DL (0.1-1.0)
[2022-05-03 07:47] LABS: BILIRUBIN,DIRECT 0.2 MG/DL (0.0-0.3); BILIRUBIN,INDIRECT 0.3 MG/DL
[2022-05-03 07:48] VITALS: BP 184/88
[2022-05-03] MEDS ORDERED: BENA-3 PO (08:37)
[2022-05-03] MEDS ORDERED: CYCL10TA25 PO (08:38)
[2022-05-03] MEDS ORDERED: VITA100033 PO (08:38)
[2022-05-03] MEDS ORDERED: meTOproloL SUCCINATE 50 MG (TOPROL XL) TAB PO SCH (09:00)
[2022-05-03] MEDS ORDERED: CYANOCOBALAMIN 1,000 MCG (VITAMIN B-12) TABLET PO SCH (10:00)
[2022-05-03] MEDS ORDERED: ACETAMINOPHEN 500 MG TAB (TYLENOL) PO PRN (10:00)
[2022-05-03] MEDS ORDERED: VITAMIN D3 25 MCG (1,000 UNITS) TABLET PO SCH (10:00)
[2022-05-03] MEDS ORDERED: KCL 20 MEQ TAB (K-DUR) PO NR (10:00)
[2022-05-03] MEDS ORDERED: amLODIPine 10 MG (NORVASC) TAB PO SCH (10:00)
[2022-05-03] MEDS ORDERED: CYCLOBENZAPRINE 10 MG (FLEXERIL) TAB PO PRN (10:00)
[2022-05-03] MEDS ORDERED: carBAMazepine 200 MG (TEGretol) TAB PO SCH (10:00)
[2022-05-03] MEDS ORDERED: lisINopril 20 MG (PRINIVIL) TABLET PO SCH (10:00)
[2022-05-03] MEDS ORDERED: LACT1CAP7 PO (10:08)
--- NOTE | 2022-05-03 10:09 | Discharge Summary ---
Diagnosis/Chief Complaint Date of Admission May 02, 2022 at 01:20 Date of Discharge Discharge Date: May 03, 2022 Discharge Diagnosis 1. Diarrhea/Enteritis--admit for IVFs, clear liquids, will check hemoccult, probiotic started, add levsin 2. Hypertension--start metoprolol until home meds reconciled 3. History of Diverticulitis--no evidence of acute diverticulitis on CT scan and no pain on palpation 4. Hypokalemia--replace potassium Discharge Summary Discharge Physical Examination Allergies: Coded Allergies: morphine (Verified Adverse Reaction, Mild, CONFUSION, CAN TAKE PERCOCET, 05/14/19) Vitals & I&Os Vital Signs Date Time Temp Pulse Resp B/P (MAP) Pulse Ox O2 Delivery O2 Flow Rate FiO2 05/03/22 12:33 05/03/22 08:00 Room Air 05/03/22 07:48 36.7 61 16 94 05/02/22 07:30 0.00 General Appearance: Alert, Oriented X3, Cooperative Respiratory: Clear to Auscultation Cardiovascular: Regular Rate Neuro: Normal Gait, Normal Speech, Strength at 5/5 X4 Ext Psych/Mental Status: Mental Status NL Hospital Course Was the Problem List Reviewed?: Yes Pt is feeling much better today. He has not had an diarrhea since admission, although he has been on a liquid diet. He denies abdominal pain, N/V, chest pain, fever, chills, or any other sx. States he is ready to go home. Hospital Course: Mr. Abbott, 81 YO M, presented to to ED for diarrhea x 2 days with mild abdominal cramping. States his diarrhea was black, but had been taking pepto-bismol. He has hx of diverticulitis with last colonoscopy on 04/11/21 showing diverticulosis and descending colon polyp that was removed. CT in ED showed no acute diverticulitis. He was admitted for IVF and potassium replacement. His potassium is 3.4 today, will give him 20 mEQ potassium tablet today. Will advance him to regular diet, if he tolerates pt will be dismissed home. He is agreeable with plan. ERMA JONES Labs (last 24 hrs) Laboratory Tests 05/01/22 23:37: Influenza Type A (RT-PCR) Not Detected, Influenza Type B (RT-PCR) Not Detected, SARS-CoV-2 RNA (RT-PCR) Not Detected 05/01/22 23:41: White Blood Count 12.3H, Red Blood Count 4.31, Hemoglobin 14.8, Hematocrit 42, Mean Corpuscular Volume 97, Mean Corpuscular Hemoglobin 34, Mean Corpuscular Hemoglobin Concent 35, Red Cell Distribution Width 13.5, Platelet Count 256, Mean Platelet Volume 9.5, Immature Granulocyte % (Auto) 0, Neutrophils (%) (Auto) 70, Lymphocytes (%) (Auto) 13, Monocytes (%) (Auto) 13H, Eosinophils (%) (Auto) 2, Basophils (%) (Auto) 1, Neutrophils # (Auto) 8.6H, Lymphocytes # (Auto) 1.6, Monocytes # (Auto) 1.6H, Eosinophils # (Auto) 0.3, Basophils # (Auto) 0.1, Immature Granulocyte # (Auto) 0.0, Erythrocyte Sedimentation Rate 10, Sodium Level 140, Potassium Level 3.5L, Chloride Level 104, Carbon Dioxide Level 22, Anion Gap 14, Blood Urea Nitrogen 29H, Creatinine 1.10, Estimat Glomerular Filtration Rate 67, BUN/Creatinine Ratio 26, Glucose Level 134H, Calcium Level 8.4L, Corrected Calcium 8.3L, Magnesium Level 1.9, Total Bilirubin 0.9, Aspartate Amino Transf (AST/SGOT) 21, Alanine Aminotransferase (ALT/SGPT) 17, Alkaline Phosphatase 71, C-Reactive Protein High Sensitivity 10.82H, Total Protein 7.0, Albumin 4.1, Amylase Level 29 05/02/22 00:17: Urine Color YELLOW, Urine Clarity CLEAR, Urine pH 5.0, Urine Specific [place] >=1.030, Urine Protein 1+H, Urine Glucose (UA) NEGATIVE, Urine Ketones TRACEH, Urine Nitrite NEGATIVE, Urine Bilirubin 2+H, Urine Urobilinogen 0.2, Urine Leukocyte Esterase NEGATIVE, Urine RBC (Auto) NEGATIVE, Urine RBC NONE, Urine WBC NONE, Urine Crystals NONE, Urine Bacteria NEGATIVE, Urine Casts PRESENT, Urine Hyaline Casts 5-10H, Urine Mucus SMALLH, Urine Culture Indicated NO 05/03/22 05:06: White Blood Count 6.0, Red Blood Count 3.97L, Hemoglobin 13.6, Hematocrit 40, Mean Corpuscular Volume 100H, Mean Corpuscular Hemoglobin 34, Mean Corpuscular Hemoglobin Concent 34, Red Cell Distribution Width 13.5, Platelet Count 186, Mean Platelet Volume 9.5, Immature Granulocyte % (Auto) 0, Neutrophils (%) (Auto) 56, Lymphocytes (%) (Auto) 27, Monocytes (%) (Auto) 11, Eosinophils (%) (Auto) 4, Basophils (%) (Auto) 1, Neutrophils # (Auto) 3.3, Lymphocytes # (Auto) 1.6, Monocytes # (Auto) 0.7, Eosinophils # (Auto) 0.3, Basophils # (Auto) 0.1, Immature Granulocyte # (Auto) 0.0, Sodium Level 141, Potassium Level 3.4L, Chlor kemi Level 108H, Carbon Dioxide Level 21, Anion Gap 12, Blood Urea Nitrogen 11, Creatinine 0.73, Estimat Glomerular Filtration Rate 90, BUN/Creatinine Ratio 15, Glucose Level 102, Calcium Level 8.5, Total Bilirubin 0.5, Aspartate Amino Transf (AST/SGOT) 28, Alanine Aminotransferase (ALT/SGPT) 16, Alkaline Phosphatase 54, Total Protein 6.0L, Albumin 3.5, Direct Bilirubin 0.2, Indirect Bilirubin 0.3 Microbiology 05/02/22 Fecal Leukocyte Stain - Final, Complete Pending Labs Microbiology Date/Time Source Procedure Growth Status 05/02/22 00:17 Stool Fecal Leukocyte Stain - Final Complete Laboratory Tests 05/01/22 23:37: Influenza Type A (RT-PCR) Not Detected, Influenza Type B (RT-PCR) Not Detected, SARS-CoV-2 RNA (RT-PCR) Not Detected 05/01/22 23:41: White Blood Count 12.3, Red Blood Count 4.31, Hemoglobin 14.8, Hematocrit 42, Mean Corpuscular Volume 97, Mean Corpuscular Hemoglobin 34, Mean Corpuscular Hemoglobin Concent 35, Red Cell Distribution Width 13.5, Platelet Count 256, Mean Platelet Volume 9.5, Immature Granulocyte % (Auto) 0, Neutrophils (%) (Auto) 70, Lymphocytes (%) (Auto) 13, Monocytes (%) (Auto) 13, Eosinophils (%) (Auto) 2, Basophils (%) (Auto) 1, Neutrophils # (Auto) 8.6, Lymphocytes # (Auto) 1.6, Monocytes # (Auto) 1.6, Eosinophils # (Auto) 0.3, Basophils # (Auto) 0.1, Immature Granulocyte # (Auto) 0.0, Erythrocyte Sedimentation Rate 10, Sodium Le dimirty 140, Potassium Level 3.5, Chloride Level 104, Carbon Dioxide Level 22, Anion Gap 14, Blood Urea Nitrogen 29, Creatinine 1.10, Estimat Glomerular Filtration Rate 67, BUN/Creatinine Ratio 26, Glucose Level 134, Calcium Level 8.4, Corrected Calcium 8.3, Magnesium Level 1.9, Total Bilirubin 0.9, Aspartate Amino Transf (AST/SGOT) 21, Alanine Aminotransferase (ALT/SGPT) 17, Alkaline Phosphatase 71, C-Reactive Protein High Sensitivity 10.82, Total Protein 7.0, Albumin 4.1, Amylase Level 29 05/02/22 00:17: Urine Color YELLOW, Urine Clarity CLEAR, Urine pH 5.0, Urine Specific [place] >=1.030, Urine Protein 1+, Urine Glucose (UA) NEGATIVE, Urine Ketones TRACE, Urine Nitrite NEGATIVE, Urine Bilirubin 2+, Urine Urobilinogen 0.2, Urine Leukocyte Esterase NEGATIVE, Urine RBC (Auto) NEGATIVE, Urine RBC NONE, Urine WBC NONE, Urine Crystals NONE, Urine Bacteria NEGATIVE, Urine Casts PRESENT, Urine Hyaline Casts 5-10, Urine Mucus SMALL, Urine Culture Indicated NO 05/03/22 05:06: White Blood Count 6.0, Red Blood Count 3.97, Hemoglobin 13.6, Hematocrit 40, Mean Corpuscular Volume 100, Mean Corpuscular Hemoglobin 34, Mean Corpuscular Hemoglobin Concent 34, Red Cell Distribution Width 13.5, Platelet Count 186, Mean Platelet Volume 9.5, Immature Granulocyte % (Auto) 0, Neutrophils (%) (Auto) 56, Lymphocytes (%) (Auto) 27, Monocytes (%) (Auto) 11, Eosinophils (%) (Auto) 4, Basophils (%) (Auto) 1, Neutrophils # (Auto) 3.3, Lymphocytes # (Auto) 1.6, Monocytes # (Auto) 0.7, Eosinophils # (Auto) 0.3, Basophils # (Auto) 0.1, Immature Granulocyte # (Auto) 0.0, Sodium Level 141, Potassium Level 3.4, Chloride Level 108, Carbon Dioxide Level 21, Anion Gap 12, Blood Urea Nitrogen 11, Creatinine 0.73, Estimat Glomerular Filtration Rate 90, BUN/Creatinine Ratio 15, Glucose Level 102, Calcium Level 8.5, Total Bilirubin 0.5, Aspartate Amino Transf (AST/SGOT) 28, Alanine Aminotransferase (ALT/SGPT) 16, Alkaline Phosphatase 54, Total Protein 6.0, Albumin 3.5, Direct Bilirubin 0.2, Indirect Bilirubin 0.3 Discharge Home Medications: Active Scripts Active Acidophilus-Pectin Capsule (Lactobacillus Acidophilus/Pect) 75 Million Cell-100 Mg Capsule 2 Each PO QIDACHS Reported Vitamin E (Vitamin E Mixed) 1,000 Unit Capsule 1,000 Unit PO DAILY Cyclobenzaprine HCl 10 Mg Tablet 10 Mg PO DAILY PRN Benazepril HCl 20 Mg Tablet 20 Mg PO DAILY Tylenol Extra Strength (Acetaminophen) 500 Mg Tablet 1,000 Mg PO Q8H PRN Vitamin B-12 (Cyanocobalamin (Vitamin B-12)) 1,000 Mcg Capsule 1,000 Mcg PO DAILY Rosuvastatin Calcium 20 Mg Tablet 20 Mg PO HS Amlodipine Besylate 10 Mg Tablet 10 Mg PO DAILY Metoprolol Tartrate 100 Mg Tablet 100 Mg PO BID Carbamazepine 200 Mg Tablet 200 Mg PO BID Vitamin D3 (Cholecalciferol (Vitamin D3)) 50 Mcg Capsule 50 Mcg PO DAILY Adult Low Dose Aspirin EC (Aspirin) 81 Mg Tablet.dr 81 Mg PO Q48H Meloxicam 15 Mg Tablet 15 Mg PO DAILY Instructions to patient/family Please see electronic discharge instructions given to patient. RAFI DOBBINS DO May 03, 2022 10:09
--- NOTE | 2022-05-03 10:26 | Progress Note ---
ERMA JONES 05/03/22 1026: Progress Note Pt is feeling much better today. He has not had an diarrhea since admission, although he has been on a liquid diet. He denies abdominal pain, N/V, chest pain, fever, chills, or any other sx. States he is ready to go home. Hospital Course: Mr. Abbott, 81 YO M, presented to to ED for diarrhea x 2 days with mild abdominal cramping. States his diarrhea was black, but had been taking pepto-bismol. He has hx of diverticulitis with last colonoscopy on 04/11/21 showing diverticulosis and descending colon polyp that was removed. CT in ED showed no acute diverticulitis. He was admitted for IVF and potassium replacement. His potassium is 3.4 today, will give him 20 mEQ potassium tablet today. Will advance him to regular diet, if he tolerates pt will be dismissed home. He is agreeable with plan. HEATHER FIELDS DO 05/04/22 0540: Supervisory-Addendum Brief Verification & Attestation Participated in pt care: history, MDM, physical Personally performed: exam, history, MDM, supervision of care Care discussed with: Medical Student Procedures: n/a Results interpretation: Verified all documentation Verification and Attestation of Medical Student E/M Service A medical student performed and documented this service in my presence. I reviewed and verified all information documented by the medical student and made modifications to such information, when appropriate. I personally performed the physical exam and medical decision making. Heather Fields May 04, 2022,05:40 ERMA JONES May 03, 2022 10:26 HEATHER FIELDS DO May 04, 2022 05:40
[2022-05-03] MEDS ORDERED: meTOprolol TARTRATE 50 MG (LOPRESSOR) TAB PO SCH (21:00)
[2022-05-03] MEDS ORDERED: ROSUVASTATIN 20 MG (CRESTOR) TABLET PO SCH (21:00)
[2022-05-04] MEDS ORDERED: NON-FORMULARY MEDICATION 1 EA EA (Benazepril HCl 20 MG) PO SCH (09:00)
== END 2022-05-03 12:45 | disposition home or self-care (01) | DRG 392 ==
LOC: EDUNIT# 23:12 → ER 23:15 → 4TH 05-02 01:20
PROVIDERS: ADMIT Family Medicine; ATTEND Internal Medicine
DX: K52.9 Noninfective gastroenteritis and colitis, unspecified (principal); E86.0 Dehydration; E87.6 Hypokalemia; I10 Essential (primary) hypertension; E78.00 Pure hypercholesterolemia, unspecified; I25.10 Atherosclerotic heart disease of native coronary artery without angina pectoris; G47.30 Sleep apnea, unspecified; H54.3 Unqualified visual loss, both eyes; Z20.822 Contact with and (suspected) exposure to COVID-19; H91.90 Unspecified hearing loss, unspecified ear; I25.2 Old myocardial infarction; Z87.891 Personal history of nicotine dependence; Z95.820 Peripheral vascular angioplasty status with implants and grafts; Z85.46 Personal history of malignant neoplasm of prostate; Z90.79 Acquired absence of other genital organ(s); Z85.820 Personal history of malignant melanoma of skin; Z79.82 Long term (current) use of aspirin; Z88.5 Allergy status to narcotic agent
CPT/HCPCS: 36415; 74177; 80048; 80053; 80076; 81000; 82150; 83735; 85025; 85652; 86141; 87636; 89055; 93041; 94760

== ENCOUNTER → 2022-07-27 | Outpatient (CLI) | payer MEDICARE, OTHER ==
[~2022-07-27] MED LIST changes: +LACT1CAP7 PO; +VITA100033 PO
--- NOTE | 2022-07-27 11:11 | Diagnostic Imaging Report ---
INDICATION: Left leg pain. Left leg venous Doppler study was performed in the routine fashion with color flow Doppler and waveform analysis. FINDINGS: The left common femoral vein, superficial femoral vein, popliteal vein and visualized portion of the posterior tibial vein show normal compressibility and venous flow patterns. There is normal augmentation. IMPRESSION: No evidence of deep vein thrombosis of the major veins of the left leg. Dictated by: Dictated on workstation # [id number]
== END ==
LOC: RAD 10:32
PROVIDERS: ATTEND Nurse Practitioner Family
DX: M79.605 Pain in left leg (principal); M79.89 Other specified soft tissue disorders